=== PATIENT | male | born 1970 | race Caucasian/White ===

== ENCOUNTER 2018-12-06 18:43 | Emergency (ER) | payer MEDICAID ==
[~2018-12-06] VITALS: Ht 187.9 cm; Wt 100.0 kg
[~2018-12-06 18:43] MED LIST: ALBU5SOL10 IH; ASP81TEC PO; CLOP75TA PO; HYDR1TAB66 PO; LISI20TA PO; LSNP10T PO; METO25TA2 PO; NITR0.4T12 SL; PANT40SU PO; SIMV20TA3 PO; TRZ50T PO; aspirin; trazadone; trazadone PO
--- NOTE | 2018-12-06 19:12 | ED GI ---
General Chief Complaint: Abdominal/GI Problems Stated Complaint: CONSTIPATION Nursing Triage Note: pt. c/o constipation. last bowel movement was 3 days ago. pt. reported a hard stool. Sepsis Screen: No Definite Risk Source of Information: Patient Exam Limitations: No Limitations History of Present Illness Date Seen by Provider: Dec 06, 2018 Time Seen by Provider: 18:50 Initial Comments Patient presents ER by EMS from [employer], [place] with chief complaint of constipation 3 days. You hard large stool ball at that time. He took one dose of MiraLAX today and was not able to pass stool so he called the family wants. He has a history of chronic opioid-induced constipation. He does not use methyl naltrexone. 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 He does not have a history of cancer presently. He does not take anything routinely for constipation. He follows with [facility] [employer]. He saw her yesterday and had labs and everything was okay then. He did not bring up his constipation at that time. Allergies and Home Medications Allergies Coded Allergies: Metoclopramide (Verified Allergy, Unknown, 12/14/06) Prochlorperazine (Verified Allergy, Unknown, 12/14/06) Home Medications Aspirin 81 Mg Tabec, 81 MG PO DAILY, (Reported) Clopidogrel Bisulfate 75 Mg Tablet, 75 MG PO DAILY, (Reported) Hydrocodone Bit/Acetaminophen 1 Each Tablet, 1 TAB PO Q6H PRN, (Reported) Lisinopril 20 Mg Tablet, 20 MG PO DAILY, (Reported) Metoprolol Tartrate 25 Mg Tablet, 25 MG PO DAILY, (Reported) Nitroglycerin 0.4 Mg Tab.subl, 0.4 MG SL PRN, (Reported) Simvastatin 20 Mg Tablet, 20 MG PO DAILY, (Reported) Trazodone Hcl 50 Mg Tab, 50 MG PO DAILY, (Reported) Patient Home Medication List Home Medication List Reviewed: Yes Review of Systems Review of Systems Constitutional: No chills, No diaphoresis EENTM: No Blurred Vision, No Double Vision Respiratory: Denies Cough, Denies Shortness of Air Cardiovascular: Denies Chest Pain, Denies Edema Gastrointestinal: See HPI; Denies Abdominal Pain; Constipated; Denies Diarrhea, Denies Nausea Genitourinary: Denies Burning, Denies Discharge Musculoskeletal: No back pain, No joint pain Past Whzgxdt-Cnpsvi-Cunjrs Hx Patient Social History Alcohol Use: Denies Use Recreational Drug Use: No Recent Foreign Travel: No Contact w/Someone Who Travel: No Recent Infectious Disease Expo: No Recent Hopitalizations: No Physical Abuse: No Sexual Abuse: No Mistreated: No Fear: No Seasonal Allergies Seasonal Allergies: No Past Medical History Respiratory: Yes (copd) Cardiac: Yes Heart Attack Neurological: Yes Stroke Reproductive Disorders: No Sexually Transmitted Disease: No Gastrointestinal: No Musculoskeletal: Yes Endocrine: No Cancer: Yes (nasopharyngeal at age 18) Psychosocial: Yes Blood Disorders: No Physical Exam Vital Signs Vital Signs - First Documented 12/06/18 18:45 Temp 36.9 Pulse 76 Resp 18 B/P (MAP) 141/99 (113) Pulse Ox 98 O2 Delivery Room Air Capillary Refill : Less Than 3 Seconds Height/Weight/BMI Height: '" Weight: lbs. oz. kg; 28.00 BMI Method: General Appearance: WD/WN, no apparent distress HEENT: PERRL/EOMI, pharynx normal Respiratory: no respiratory distress, no accessory muscle use Cardiovascular: normal peripheral pulses, regular rate, rhythm Gastrointestinal: normal bowel sounds, non tender, soft Skin: normal color, warm/dry Progress/Results/Core Measures Results/Orders Vital Signs/I&O 12/06/18 18:45 Temp 36.9 Pulse 76 Resp 18 B/P (MAP) 141/99 (113) Pulse Ox 98 O2 Delivery Room Air Blood Pressure Mean: 113 POS Progress Progress Note : Time: 19:08 Progress Note Plan to put him out on MiraLAX 3 times daily and enemas twice daily. We have recommended methyl naltrexone and he can discuss this with his primary care provider. Departure Impression Primary Impression: Constipation Qualified Codes: K59.03 - Drug induced constipation Disposition: 01 HOME, SELF-CARE Condition: Stable Departure-Patient Inst. Decision time for Depature: 19:09 Referrals: BREANNE SANABRIA MD (PCP/Family) Primary Care Physician Patient Instructions: Constipation, Adult (DC) Add. Discharge Instructions: Drink plenty of fluids. 1 capful of MiraLAX in 6-8 ounces of fluids taken 3-4 times daily on a schedule until you have good results. Place one Phosphosoda enema per rectum once or twice daily for the next 3 days until you produce good bowel movements. If after 3 days or unable to produce a stool despite using laxatives and enemas then you can pickle pumper the Methylnaltrexone and inject subcutaneously 12 mg once. If you don't see improvement in one day then you can follow-up with the primary care doctor. Follow-up next week with your primary care provider. If you have nausea take one tablet of Zofran every 6 hours under the tongue as needed. All discharge instructions reviewed with patient and/or family. Voiced understanding. Scripts Methylnaltrexone (Relistor) 12 Mg/0.6 Ml Vial 12 MG SQ ONCE PRN for CONSTIPATION-3RD LINE, #1 VIAL 0 Refills If 3 days MiraLAX/enemas fail then stop laxatives Give Relistor. See PCP if no results in 24h Prov: RACHEL STOVER 12/06/18 Na Phos,M-B/Na Phos,Di-Ba (Fleet Enema) 133 Ml Enema 133 ML RC BID PRN for CONSTIPATION-1ST LINE for 3 Days, #5 EA 0 Refills Prov: RACHEL STOVER 12/06/18 Polyethylene Glycol 3350 (Miralax) 17 Gm Powd.pack 17 GM PO TID for 3 Days, #1 EACH 0 Refills Prov: RACHEL STOVER 12/06/18 Ondansetron (Ondansetron Odt) 4 Mg Tab.rapdis 4 MG PO Q6H PRN for NAUSEA/VOMITING, #8 TAB 0 Refills Prov: RACHEL STOVER 12/06/18 RACHEL STOVER Dec 06, 2018 19:12 POS
[2018-12-06] MEDS ORDERED: POLY17PO6 PO (19:17)
[2018-12-06] MEDS ORDERED: NA P133E22 RC (19:17)
[2018-12-06] MEDS ORDERED: ONDA4TAB11 PO (19:17)
[2018-12-06] MEDS ORDERED: RELISTOR12 SQ (19:17)
[2018-12-06 19:20] VITALS: BP 141/99
--- OUTSIDE RECORDS SUMMARY | 2018-12-30 18:26 | XMS REPORT | Encounter Summary ---
Author Author [facility] POS Organization [facility] SP Address Unknown SP Phone Unavailable SP Care Team Providers Care L Tacker Name Role Phone POS PCP Unavailable SP Encounter Details Care Team Description POS Date Type Department [place] [address] [place] [address] SP 05/06/2004 [facility] [place] [address] [place] [address] SP [phone] SP Social History Date POS Tobacco Use Types Packs/Day Years Used SP SP Never Assessed SP Sex Assigned at Date Recorded SP Not on file SP Industry POS Job Start Date Occupation SP Not on file SP Not on file Not on file SP Travel End POS Travel History Travel Start SP No recent travel history available. SP documented as of this encounter Plan of Treatment Not on filedocumented as of this encounter Procedures Comments POS Procedure Name Priority Date/Time Associated Diag nosis SP SP DIFFERENTIAL Routine 05/06/2004 SP 10:55 PM MAIN LINE STATION ENGINEER SP SP APTT Routine 05/06/2004 SP 10:55 PM MAIN LINE STATION ENGINEER SP SP TROPONIN Routine 05/06/2004 SP 10:55 PM MAIN LINE STATION ENGINEER SP SP PROTHROMBIN TIME/INR Routine 05/06/2004 SP 10:55 PM MAIN LINE STATION ENGINEER SP SP CREATINE KINASE Routine 05/06/2004 SP 10:55 PM MAIN LINE STATION ENGINEER SP SP CBC AND DIFF (MANUAL DIFF Routine 05/06/2004 SP IF NECESSARY) 10:55 PM MAIN LINE STATION ENGINEER SP SP CK-MB Routine 05/06/2004 SP 10:55 PM MAIN LINE STATION ENGINEER SP SP BASIC METABOLIC PANEL Routine 05/06/2004 SP 10:55 PM MAIN LINE STATION ENGINEER SP SP ALCOHOL SERUM Routine 05/06/2004 SP 10:55 PM MAIN LINE STATION ENGINEER SP SP XR CHEST SINGLE VIEW Routine 05/06/2004 SP FRONTAL 10:16 PM MAIN LINE STATION ENGINEER SP documented in this encounter Results * DIFFERENTIAL (05/06/2004 10:55 PM MAIN LINE STATION ENGINEER) Pathologist POS Signature SP % Neutrophils 64 45 - 78 % [facility] SP %Lymphocytes 23 15 - 47 % [facility] SP %Monocytes 12 0 - 12 % [facility] SP %Eosinophils 1 0 - 7 % [facility] SP %Basophils 0 0 - 2 % [facility] SP # Granulocytes 6.5 1.7 - 6.8 TH/UL [facility] SP # Lymphocytes 2.3 1.0 - 3.3 TH/UL [facility] SP # Monocytes 1.2 (H) 0.2 - 0.9 TH/UL [facility] SP # Eosinophils 0.1 0.0 - 0.4 TH/UL [facility] SP # Basophils 0.0 0.0 - 0.2 TH/UL [facility] SP Specimen SP Blood SP Performing Organization Address [facility] Ph one Number SP [address] [place], [place] [address] SP SUNQUEST SP * CBC and Diff (manual diff if necessary) (05/06/2004 10:55 PM MAIN LINE STATION ENGINEER) Pathologist SP Signature SP WBC 10.1 4.0 - 11.0 TH/UL [facility] SP RBC 5.13 4.31 - 5.84 MIL/UL [facility] SP Hemoglobin 15.4 13.0 - 17.0 G/DL [facility] SP Hematocrit 43 40 - 50 % [facility] SP MCV 84 80 - 99 FL [facility]QUEST SP MCH 30 27 - 34 PG [facility]QUEST SP MCHC 36 32 - 36 % [facility] SP RDW 15.5 (H) <14.5 % [facility] SP Platelet Count 338 140 - 400 TH/UL [facility] SP Specimen SP Blood SP Performing Organization Address [facility] Ph one Number SP [address] [place], [place] [address] SP [facility]QUEST SP * Troponin (05/06/2004 10:55 PM MAIN LINE STATION ENGINEER) Pathologist SP Signature SP Troponin <0.10 f 0.00 - 0.15 NG/ML [facility] SP Specimen SP Blood SP Narrative Performed At SP Report [facility] SP Comments and Normal Ranges for Com ponent TROPONIN(NG/ML) SP TROPONIN VALUE INTERPRETATION SP 0.00 - 0.15 Negative SP 0.16 - 1.50 Increased car diac risk SP >1.50 Myocardial in farction SP Troponin may not become elevated until 6 to 8 hours after onset of SP symptoms. SP Performing Organization Address [facility] one Number SP [address] [place] [address] SP SUNQUEST SP * Creatine Kinase (05/06/2004 10:55 PM MAIN LINE STATION ENGINEER) Pathologist SP Signature SP Creatine Kinase 209 30 - 225 IU/L [facility]QUEST SP Specimen SP Blood SP Performing Organization Address [facility] Ph one Number SP [address] [place] [address] SP SUNQUEST SP * Prothrombin Time/INR (05/06/2004 10:55 PM MAIN LINE STATION ENGINEER) Pathologist SP Signature SP Protime 13.3 11.4 - 14.2 SEC [facility]QUEST SP INR 1.1 [facility] SP Specimen SP Blood SP Performing Organization Address [facility] Ph one Number SP [address] [place] [address] SP SUNQUEST SP * Basic Metabolic Panel (05/06/2004 10:55 PM MAIN LINE STATION ENGINEER) Pathologist SP Signature SP Sodium 143 134 - 144 MEQ/L [facility]QUEST SP Potassium 3.7 3.6 - 5.0 MEQ/L [facility]QUEST SP Chloride 109 (H) 98 - 107 MEQ/L [facility]QUEST SP Carbon Dioxide 24 23 - 32 MEQ/L SUNQUEST SP Anion Gap 10 3 - 15 [facility]QUEST SP Creatinine 1.5 0.5 - 1.5 MG/DL [facility]QUEST SP Blood Urea 11 5 - 20 MG/DL [facility]QUEST SP Nitrogen SP Glucose 119 (H) 65 - 100 MG/DL SUNQUEST SP Calcium 9.7 8.8 - 10.5 MG/DL [facility]QUEST SP Specimen SP Blood SP Performing Organization Address [facility] Ph one Number SP [address] [place] [address] SP SUNQUEST SP * CK-MB (05/06/2004 10:55 PM MAIN LINE STATION ENGINEER) Pathologist SP Signature SP CK MB 1.4 0.0 - 5.0 NG/ML [facility]QUEST SP Specimen SP Blood SP Performing Organization Address [facility] one Number SP [address] [place] [address] SP SUNQUEST SP * Alcohol Serum (05/06/2004 10:55 PM MAIN LINE STATION ENGINEER) Pathologist SP Signature SP Alcohol Serum <10 f 0 - 9 MG/DL [facility]QUEST SP Specimen SP Blood SP Narrative Performed At SP Report SUNQUEST SP Comments and Normal Ranges for Com ponent ALC(MG/DL) SP No ethanol detected. SP Performing Organization Address [facility] Ph one Number SP [address] [place] [address] SP SUNQUEST SP * APTT (05/06/2004 10:55 PM MAIN LINE STATION ENGINEER) Pathologist SP Signature SP APTT 25 22 - 32 SEC [facility]QUEST SP Specimen SP Blood SP Performing Organization Address [facility] one Number SP [address] [place] [address] SP SUNQUEST SP * XR Chest single view frontal (05/06/2004 10:16 PM MAIN LINE STATION ENGINEER) Specimen SP Narrative Performed At SP Report LOLIS SP Name: BANDAR PECK Date of : 0 1970 Age: 33Y SP Room-Bed/Loc/Type : -// Check-in #: [id number] SP Attending Physician: LUISITO COX MD Admitting Diagnosis: SP Procedure: DX CHEST SINGLE VIEW; 1010 5 SP Reason for Exam: PAIN SP Requested by: LUISITO COX Exam Ordered: 05/06/2004 SP Fletcher # / Jacket #: [id number] SP Exam: CHEST. SP Date/Time of Exam: 05/06/2004 22:18 SP Reason for Exam: Pain. SP Single AP upright view is obtained. T he heart and mediastinum are SP unremarkable. Diaphragms are smooth. Lungs are clear. SP IMPRESSION: Negative chest. SP Electronically Authenticated By: JOSH Bowman M.D. 05/07/2004 14:46:4 1 SP JOSH Bowman M.D. SP SP cc: SP 1 SP Procedure Note POS SP Interface, Rad Conversion - 04/07/2013 11:46 PM MAIN LINE STATION ENGINEER Report Name: BANDAR PECK Date of : 1970 Age: 33Y Room-Bed/Loc/Type: -//EJ Check-in #: [id number] Attending Physician: LUISITO COX MD Admitting Diagnosis: Procedure: DX CHEST SINGLE VIEW; 68085 Reason for Exam: PAIN Requested by: LUISITO COX Exam Ordered: 05/06/2004 Fletcher # / Jacket #: [id number] Exam: CHEST. Date/Time of Exam: 05/06/2004 22:18 Reason for Exam: Pain. Single AP upright view is obtained. The heart and mediastinum are unremarkable. Diaphragms are smooth. Lungs are clear. IMPRESSION: Negative chest. Electronically Authenticated By: Luisito Bowman M.D. 05/07/2004 14:46:41 Luisito Bowman M.D. cc: 1 SP Performing Organization Address City/State/Zipcode Ph one Number JOSH MORENO documented in this encounter Visit Diagnoses Not on filedocumented in this encounter
--- OUTSIDE RECORDS SUMMARY | 2018-12-30 18:26 | XMS REPORT | Clinical Summary ---
Author Author [facility] POS Organization [facility] SP Address Unknown SP Phone Unavailable SP Care Team Providers Care Motor And Generator Assembler Name Role Phone POS William Tee MD Unavailable SP Melvin Moran MD Unavailable SP Cristobal Gonzales MD Unavailable SP Irene Huang MD PCP SP Ramiro Lovell DO Unavailable SP Source Comments Some departments are not documenting in the electronic medical record. If you d o not see the information that you expected, contact Release of Information in [facility] Information Management department at [phone] for further assistan ce in locating additional records.[facility] Allergies Comments POS Active Allergy Reactions Severity Noted Date SP SP Prochlorperazine UNKNOWN 05/11/2007 SP SP Metoclopramide 05/12/2007 SP Medications End Date Status POS Medication Sig Dispensed Refills Start SP Date SP Active SP atorvastatin (LIPITOR) 40 Take 2 Tabs 30 3 SP mg tablet by mouth 8 SP Daily. SP Active SP dipyridamole/aspirin Take 1 Cap by 60 0 SP (AGGRENOX) 200/25 mg mouth Twice 8 SP capsule Daily. SP Active SP citalopram (CELEXA) 20 mg Take 1 Tab by 60 Tab 1 SP tablet mouth at 2 SP bedtime SP daily. SP Active SP traZODone (DESYREL) 100 Take 100 mg 0 SP mg tablet by mouth at SP bedtime as SP needed. SP Active SP HYDROcodone-acetaminophen Take 1 Tab by 0 SP (+) (VICODIN) 10-325 mg mouth every 6 SP tablet hours as SP needed. SP Active SP meclizine (ANTIVERT) 25 Take 25 mg by 0 SP mg tablet mouth three SP times daily SP as needed. SP Active SP aspirin 325 mg tablet Take 325 mg 0 SP by mouth SP daily. SP Active SP aspirin EC 81 mg Take 1 Tab by 30 Tab 6 01 SP tabletIndications: Late mouth daily. 5 SP effect of stroke SP Active SP dipyridamole/aspirin Take 1 Cap by 60 Cap 6 SP (AGGRENOX) 200/25 mg mouth twice 5 SP capsuleIndications: Late daily. 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 SP STEMI (ST elevation myocardial infarction) 8 SP Hyperlipidemia 05/14/2007 SP CVA (cerebral infarction) 05/14/2007 SP Immunizations Name Administration Dates Next Due POS Pneumococcal Vaccine 06/27/2011 SP (23-[place]ina Adult) SP Family History Medical History Relation Name Comments POS Heart Attack Father SP Heart Attack Mother SP Relation Name Status Comments SP Father SP Mother SP Social History Date POS Tobacco Use Types Packs/Day Years Used SP Quit: 12/04/2014 SP Former Smoker Cigarettes 1 18 SP Smokeless Tobacco: Never SP Used SP Drinks/Week oz/Week Comments POS Alcohol Use SP SP 0 Standard drinks or equivalent 0.0 occasional vodka use SP Yes SP Sex Assigned at Date Recorded SP Not on file SP Industry POS Job Start Date Occupation SP Not on file SP Not on file Not on file SP Travel End POS Travel History Travel Start SP No recent travel history available. SP Last Filed Vital Signs Reading Time Taken Comments POS Vital Sign SP 112/81 02/25/2015 2:21 PM LUBRICATING SPECIALIST SP Blood Pressure SP 53 02/25/2015 2:21 PM LUBRICATING SPECIALIST SP Pulse SP 36.3 C (97.4 F) 02/25/2015 2:21 PM LUBRICATING SPECIALIST SP Temperature SP 16 02/25/2015 2:21 PM LUBRICATING SPECIALIST SP Respiratory Rate SP 99% 02/25/2015 2:21 PM LUBRICATING SPECIALIST SP Oxygen Saturation SP - - SP Inhaled Oxygen SP Concentration SP 81.6 kg (180 lb) 04/13/2015 3:47 PM LUBRICATING SPECIALIST SP Weight SP 188 cm (6' 2.02") 04/13/2015 3:47 PM LUBRICATING SPECIALIST SP Height SP 23.1 04/13/2015 3:47 PM LUBRICATING SPECIALIST SP Body Mass Index SP Plan of Treatment Health Maintenance Due Date Last Done Comments POS HIV SCREENING 08/28/1986 SP DTAP/TDAP VACCINES (1 - 08/28/1989 SP Tdap) SP PHYSICAL (COMPREHENSIVE) 08/28/1989 SP EXAM SP INFLUENZA VACCINE 09/05/2018 SP Results Not on filefrom Last 3 Months Insurance Type POS Payer Benefit Subscriber ID Effective Phone Address SP Plan / Dates SP Group SP Medicaid SP [facility] MEDICAID [facility] xxxxxxxxxxx 2012-P SP COMMUNITY resent SP PLAN [place] SP [phone] SP 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 needed SP
--- OUTSIDE RECORDS SUMMARY | 2018-12-30 18:26 | XMS REPORT | Continuity of Care Document ---
Author Author [facility] POS Organization [facility] SP Address Unknown SP Phone Unavailable SP Care Team Providers Care Strategic Planner Name Role Phone POS [facility] Unavailable Unavailable SP Problems Problem Status Onset Date POS Classification Date Reported POS Comments Source POS SHORTNESS OF BREATH Active SP SP ePARwnee Stoddard SP LOSS OF WEIGHT Active SP SP [employer] SP Medications No Data Provided for This Section POS Allergies, Adverse Reactions, Alerts No Known Medication Allergies POS Immunizations No Data Provided for This Section POS Results No Data Provided for This Section POS Pathology Reports No Data Provided for This Section POS Diagnostic Reports No Data Provided for This Section POS Consultation Notes No Data Provided for This Section POS Discharge Summaries No Data Provided for This Section POS History and Physicals No Data Provided for This Section POS Vital Signs No Data Provided for This Section POS Encounters No Data Provided for This Section POS Procedures No Data Provided for This Section POS Plan of Care No Data Provided for This Section POS Social History No Data Provided for This Section POS Assessment and Plan No Data Provided for This Section POS Family History No Data Provided for This Section POS Advance Directives No Data Provided for This Section POS Functional Status No Data Provided for This Section POS
--- OUTSIDE RECORDS SUMMARY | 2018-12-30 18:26 | XMS REPORT | Encounter Summary ---
Author Author [facility] POS Organization [facility] SP Address Unknown SP Phone Unavailable SP Care Team Providers Care Infrastructure Design Engineer Name Role Phone POS PCP Unavailable SP Encounter Details Care Team Description POS Date Type [place] [address] [place] [address] [phone] SP 05/13/2007 [facility] al SP Encounter [address] [place] [address] SP [phone] SP Social History Date POS Tobacco Use [...] Priority Date/Time Associated Diag nosis SP SP PROTEIN S ACTIVITY Routine 05/12/2007 SP 3:45 AM CDT SP documented in this encounter Results * Protein S Activity (05/12/2007 3:45 AM CDT) Pathologist POS Signature SP Protein S > 140 57 - 140 % [facility] SP Activity SP Specimen SP Performing Organization Address City/State/Zipcode Ph one Number SP [address] [place], [place] [address] SP SUNQUEST SP documented in this encounter Visit Diagnoses Not on filedocumented in this encounter
--- OUTSIDE RECORDS SUMMARY | 2018-12-30 18:26 | XMS REPORT | Encounter Summary ---
Author Author [facility] POS Organization [facility] SP Address Unknown SP Phone Unavailable SP Care Team Providers Care System Manager Name Role Phone POS PCP Unavailable SP Encounter Details Care Team Description POS Date Type Department SP SP Curry Jones MD SP 12/30/2008 [facility] al SP Encounter [address] [facility] [place] [address] SP [phone] SP Social History Date POS Tobacco Use [...] Priority Date/Time Associated Diag nosis SP SP B12/FOLATE Routine 12/29/2008 SP 8:14 PM ANGIOGRAPHY NURSE SP documented in this encounter Results * B12/Folate (12/29/2008 8:14 PM ANGIOGRAPHY NURSE) Pathologist POS Signature SP VITAMIN B12 431 180 - 914 PG/ML SUNQUEST SP Folate 5.0 >3.4 NG/ML [facility]QUEST SP Specimen SP Performing Organization Address City/State/Zipcode Ph one Number SP [address] [place], [place] [address] SP SUNQUEST SP documented in this encounter Visit Diagnoses Not on filedocumented in this encounter
--- OUTSIDE RECORDS SUMMARY | 2018-12-30 18:26 | XMS REPORT | Clinical Summary ---
Author Author [facility] POS Organization [facility] SP Address Unknown SP Phone Unavailable SP Care Team Providers Care Record Center Specialist Name Role Phone POS PCP Unavailable SP Allergies Not on File Medications Not on file Active Problems Not on file Social History Date POS Tobacco Use Types Packs/Day Years Used SP SP Never Assessed SP Sex Assigned at Date Recorded SP Not on file SP Industry POS Job Start Date Occupation SP Not on file SP Not on file Not on file SP Travel End POS Travel History Travel Start SP No recent travel history available. SP Last Filed Vital Signs Not on file Plan of Treatment Not on file Results Not on filefrom Last 3 Months
--- OUTSIDE RECORDS SUMMARY | 2018-12-30 18:26 | XMS REPORT | Encounter Summary ---
Author Author [facility] POS Organization [facility] SP Address Unknown SP Phone Unavailable SP Care Team Providers Care Track Grinder Name Role Phone POS PCP Unavailable SP Encounter Details Care Team Description POS Date Type Department SP SP Curry Jones MD SP 01/04/2009 [facility] al SP Encounter [address] [place] [address] SP [phone] SP Social History Date POS Tobacco Use [...] Priority Date/Time Associated Diag nosis SP SP ANTICARDIOLIPIN Routine 01/04/2009 SP ANTIBODIES 1:22 PM SENIOR DRAFTER SP documented in this encounter Results * Anticardiolipin Antibodies (01/04/2009 1:22 PM SENIOR DRAFTER) Pathologist POS Signature SP Anticardiolipin 6 0 - 15 GPL SUNQUEST SP IgG SP Anticardiolipin 10 0 - 15 MPL SUNQUEST SP IgM Comment: SP In the presence of appropriate SP clinical criteria (vascular SP thrombosis or SP complications of ), SP diagnosis of the SP antiphospholipid antibody SP syndrome requires a positive SP test for lupus 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 SP on two or more SP occasions at least twelve SP weeks apart, or moderate to SP high titer SP anticardiolipin antibodies SP (IgG >30 GPL units or IgM > 30 SP units) on two or SP more occasions at least twelve SP weeks apart, or anti-B2GP1 SP (IgG > 20 SGU SP units or IGM > 20 SGU units) SP on two or more occasions at SP least twelve SP weeks apart. SP Specimen SP Performing Organization Address City/State/Zipcode Ph one Number SP [facility] [address] [place], [place] [address] SP [place] SP documented in this encounter Visit Diagnoses Not on filedocumented in this encounter
--- OUTSIDE RECORDS SUMMARY | 2018-12-30 18:27 | XMS REPORT | Continuity of Care Document ---
Author Organization Unknown POS Address Unknown SP Phone Unavailable SP Allergies Active Description Code Type Severity POS Reaction Onset Reported/Identified POS to Patient Clinical Status POS Yes metoclopramide [id number] Dr ug Allergy SP Unknown N/A 12/14/2006 SP SP Yes prochlorperazine [id number] Drug Allergy SP Unknown N/A 12/14/2006 SP SP Medications There is no data. 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 SP UNSPECIFIED SP 04/17/2012 Ot 786.09 RES PIRATORY SP NEC SP 04/17/2012 Ot V12.54 PER ИРИНА HX OF SP CEREBRAL INFARCTION SP 04/17/2012 Ot V15.81 HX OF PAST SP SP 04/17/2012 Ot V45.82 PER CUTANEOUS SP CORON ANGIOPLASTY SP 04/17/2012 Ot V58.63 LAUREL G- SP OF ANTIPLATELET/AN SP 04/17/2012 Ot V58.66 LAUREL G-TERM SP USE OF ASPIRIN SP 04/17/2012 Ot V58.69 OTH SP USE SP 06/10/2014 Ot 412 SP 06/10/2014 Ot 414.00 SP 06/10/2014 Ot V72.81 SP 06/10/2014 Ot 412 SP 06/10/2014 Ot 414.01 SP 06/10/2014 Ot V72.81 SP 07/20/2014 GREENMITUL LANDA Ot 401.9 SP SP 07/20/2014 MITUL SINCLAIR Ot SP SP 07/20/2014 MITUL SINCLAIR Ot SP SP 07/20/2014 MITUL SINCLAIR Ot SP SP 11/18/2015 MONICO UGALDE MD Ot E78. 5 SP UNSPECIFIED SP 11/18/2015 MONICO UGALDE MD Ot I10 SP (PRIMARY) HYPERTENSION SP 11/18/2015 MONICO UGALDE MD Ot I25. 10 SP HEART DISEASE OF [place] CORONARY SP 11/18/2015 MONICO UGALDE MD Ot I63. 9 SP INFARCTION, UNSPECIFIED SP 11/19/2015 Ot 412 OLD MY OCARDIAL SP SP 11/19/2015 Ot 414.00 COR ON ATHEROSCLER SPNOS TYPE VESSEL, NATIV SP 11/19/2015 Ot V72.81 SP CARDIOVASCULAR SP 11/19/2015 Ot 412 OLD MY OCARDIAL SP SP 11/19/2015 Ot 414.01 COR ONARY SP OF [place] CORON SP 11/19/2015 Ot V72.81 SP CARDIOVASCULAR SP 11/19/2015 MITUL SINCLAIR Ot 401.9 SP HYPERTENSION NOS SP 11/19/2015 MITUL SINCLAIR Ot SP CORON ATHEROSCLER NOS TYPE VESSEL, NATIV SP 11/19/2015 MITUL SINCLAIR Ot SP CAROTID ARTERY OCCLUSION W O CEREBRAL IN SP 11/19/2015 MITUL SINCLAIR Ot SP CEREBRAL ART OCCLUSION NOS W CEREBRAL IN SP 11/19/2015 MONICO UGALDE MD Ot E78. 5 SP UNSPECIFIED SP 11/19/2015 MONICO UGALDE MD Ot I10 SP (PRIMARY) HYPERTENSION SP 11/19/2015 MONICO UGALDE MD Ot I25. 10 SP HEART DISEASE OF [place] CORONARY SP 11/19/2015 MONICO UGALDE MD Ot I63. 9 SP INFARCTION, UNSPECIFIED SP 12/01/2015 MONICO UGALDE MD Ot E78. 5 SP UNSPECIFIED SP 12/01/2015 MONICO UGALDE MD Ot I10 SP (PRIMARY) HYPERTENSION SP 12/01/2015 MONICO UGALDE MD Ot I25. 10 SP HEART DISEASE OF [place] CORONARY SP 12/01/2015 MONICO UGALDE MD Ot I63. 9 SP INFARCTION, UNSPECIFIED SP 12/09/2015 Ot 412 OLD MY OCARDIAL SP SP 12/09/2015 Ot 414.00 COR ON ATHEROSCLER SPNOS TYPE VESSEL, NATIV SP 12/09/2015 Ot V72.81 SP CARDIOVASCULAR SP 12/09/2015 Ot 412 OLD MY OCARDIAL SP SP 12/09/2015 Ot 414.01 COR ONARY SP OF [place] CORON SP 12/09/2015 Ot V72.81 SP CARDIOVASCULAR SP 12/09/2015 MITUL SINCLAIR Ot 401.9 SP HYPERTENSION NOS SP 12/09/2015 MITUL SINCLAIR Ot SP CORON ATHEROSCLER NOS TYPE VESSEL, NATIV SP 12/09/2015 MITUL SINCLAIR Ot CAROTID ARTERY OCCLUSION W O CEREBRAL IN SP 12/09/2015 MITUL SINCLAIR Ot CEREBRAL ART OCCLUSION NOS W CEREBRAL IN SP 12/09/2015 MONICO UGALDE MD Ot E78. 5 SP UNSPECIFIED SP 12/09/2015 MONICO UGALDE MD Ot I10 SP (PRIMARY) HYPERTENSION SP 12/09/2015 MONICO UGALDE MD Ot I25. 10 SP HEART DISEASE OF [place] CORONARY SP 12/09/2015 MONICO UGALDE MD Ot I63. 9 SP INFARCTION, UNSPECIFIED SP 12/10/2015 MITUL SINCLAIR Ot E07.9 SP DISORDER OF THYROID, UNSPECIFIED SP 12/10/2015 MITUL SINCLAIR Ot E78.2 SP MIXED HYPERLIPIDEMIA SP 12/10/2015 MITUL SINCLAIR Ot I10 SP ESSENTIAL (PRIMARY) HYPERTENSION SP 12/10/2015 MITUL SINCLAIR Ot SP ATHSCL HEART DISEASE OF [place] CORONARY SP 12/10/2015 MITUL SINCLAIR Ot SP OCCLUSION AND STENOSIS OF BILATERAL [place] SP 12/22/2015 MITUL SINCLAIR Ot E07.9 SP DISORDER OF THYROID, UNSPECIFIED SP 12/22/2015 MITUL SINCLAIR Ot E78.2 SP MIXED HYPERLIPIDEMIA SP 12/22/2015 MITUL SINCLAIR Ot I10 SP ESSENTIAL (PRIMARY) HYPERTENSION SP 12/22/2015 MITUL SINCLAIR Ot SP ATHSCL HEART DISEASE OF [place] CORONARY SP 12/22/2015 MITUL SINCLAIR Ot SP OCCLUSION AND STENOSIS OF BILATERAL SAM[place] SP 12/10/2018 RACHEL STOVER MD Ot I25. 2 SP MYOCARDIAL INFARCTION SP 12/10/2018 RACHEL STOVER MD Ot J44. 9 SP OBSTRUCTIVE PULMONARY DISEASE, U SP 12/10/2018 RACHEL STOVER MD Ot K59. 00 SP UNSPECIFIED SP 12/10/2018 RACHEL STOVER MD Ot Z79. 02 SP TERM (CURRENT) USE OF ANTITHROMBOTI SP 12/10/2018 RACHEL STOVER MD Ot Z79. 82 SP TERM (CURRENT) USE OF ASPIRIN SP 12/10/2018 RACHEL STOVER MD Ot Z86. 73 SP HX OF TIA (TIA), AND CEREB INFRC W SP 12/10/2018 RACHEL STOVER MD Ot Z88. 8 SP STATUS TO OTH DRUG/MEDS/BIOL SUB SP Procedures There is no data. Results Test Result Range POS PDM - 09 PANEL (PROFILE 1) - 10/30/18 13 :30 POS Prescribed Drug 1 Hydrocodone NRG SP Creatinine 225.7 mg/dL > or=20.0 SP pH 7.8 4.5-9.0 SP Oxidant NEGATIVE mcg/mL <200 SP Amphetamines NEGATIVE ng/mL <500 SP medMATCH Amphetamines CONSISTENT NRG SP Benzodiazepines NEGATIVE ng/mL <100 SP medMATCH Benzodiazepines CONSISTENT NRG SP Marijuana Metabolite NEGATIVE ng/mL <20 SP medMATCH Marijuana Metab CONSISTENT NRG SP Cocaine Metabolite NEGATIVE ng/mL <150 SP medMATCH Cocaine Metab CONSISTENT NRG SP Opiates POSITIVE ng/mL <100 SP Oxycodone NEGATIVE ng/mL <100 SP medMATCH Oxycodone CONSISTENT NRG SP COMMENT NRG SP Codeine NEGATIVE ng/mL <50 SP medMATCH Codeine CONSISTENT NRG SP Hydrocodone 4125 ng/mL <50 SP medMATCH Hydrocodone CONSISTENT NRG SP Hydromorphone 1076 ng/mL <50 SP medMATCH Hydromorphone CONSISTENT NRG SP Morphine NEGATIVE ng/mL <50 SP medMATCH Morphine CONSISTENT NRG SP Norhydrocodone 4921 ng/mL <50 SP medMATCH Norhydrocodone CONSISTENT NRG SP Barbiturates NEGATIVE ng/mL <300 SP medMATCH Barbiturates CONSISTENT NRG SP Methadone Metabolite NEGATIVE ng/mL <100 SP medMATCH Methadone Metab CONSISTENT NRG SP Phencyclidine NEGATIVE ng/mL <25 SP medMATCH Phencyclidine CONSISTENT NRG SP TSH w/ FREE T4 - 12/19/18 14:30 POS TSH 5.23 mIU/L 0.40-4.50 SP T4, FREE 1.2 ng/dL 0.8-1.8 SP LIPID PANEL - 12/19/18 14:30 POS CHOLESTEROL, TOTAL 247 mg/dL <200 SP HDL CHOLESTEROL 39 mg/dL >40 SP TRIGLYCERIDES 162 mg/dL <150 SP LDL-CHOLESTEROL 177 mg/dL (calc) NRG SP CHOL/HDLC RATIO 6.3 (calc) <5.0 SP NON HDL CHOLESTEROL 208 mg/dL (calc) <13 0 SP CMP - 12/19/18 14:30 POS GLUCOSE 91 mg/dL 65-99 SP UREA NITROGEN (BUN) 17 mg/dL 7-25 SP CREATININE 1.66 mg/dL 0.60-1.35 SP eGFR NON-AFR. GAMBIAN 48 mL/min/1.73m2 > OR=60 SP eGFR 56 mL/min/1.73m2 > OR=60 SP BUN/CREATININE RATIO 10 (calc) 6-22 SP SODIUM 142 mmol/L 135-146 SP POTASSIUM 4.2 mmol/L 3.5-5.3 SP CHLORIDE 107 mmol/L 98-110 SP CARBON DIOXIDE 22 mmol/L 20-32 SP CALCIUM 9.3 mg/dL 8.6-10.3 SP PROTEIN, TOTAL 7.1 g/dL 6.1-8.1 SP ALBUMIN 4.4 g/dL 3.6-5.1 SP GLOBULIN 2.7 g/dL (calc) 1.9-3.7 SP ALBUMIN/GLOBULIN RATIO 1.6 (calc) 1.0-2. 5 SP BILIRUBIN, TOTAL 0.6 mg/dL 0.2-1.2 SP ALKALINE PHOSPHATASE 48 U/L 40-115 SP AST 15 U/L 10-40 SP ALT 15 U/L 9-46 SP CBC - 12/19/18 14:30 POS WHITE BLOOD CELL COUNT 8.7 Thousand/uL 3 .8-10.8 SP RED BLOOD CELL COUNT 5.46 Million/uL 4.2 0-5.80 SP HEMOGLOBIN 15.2 g/dL 13.2-17.1 SP HEMATOCRIT 45.0 % 38.5-50.0 SP MCV 82.4 fL 80.0-100.0 SP MCH 27.8 pg 27.0-33.0 SP MCHC 33.8 g/dL 32.0-36.0 SP RDW 13.9 % 11.0-15.0 SP PLATELET COUNT 308 Thousand/uL 140-400 SP MPV 10.0 fL 7.5-12.5 SP ABSOLUTE NEUTROPHILS 4811 cells/uL 1500- 7800 SP ABSOLUTE LYMPHOCYTES 3002 cells/uL 850-3 900 SP ABSOLUTE MONOCYTES 713 cells/uL 200-950 SP ABSOLUTE EOSINOPHILS 131 cells/uL 15-500 SP ABSOLUTE BASOPHILS 44 cells/uL 0-200 SP NEUTROPHILS 55.3 % NRG SP LYMPHOCYTES 34.5 % NRG SP MONOCYTES 8.2 % NRG SP EOSINOPHILS 1.5 % NRG SP BASOPHILS 0.5 % NRG SP Encounters ACCT No. Visit Date/Time Discharge Status POS Pt. Type Provider Facility Loc./Un it POS Complaint POS [id number] 12/26/2018 14:20:00 12/26/2018 23:59: 59 CLS SP Outpatient GROVER BUNCH [facility] SP SP [id number] 12/19/2018 14:40:00 Document SPRegistration SP [id number] 10/30/2018 13:00:00 Document SPRegistration SP [id number] 12/06/2018 18:44:00 019 19:22:00 SP DIS Outpatient JOLANTA CERVANTES, RACHEL Heller [facility] ER FS CONSTIPATION SP [id number] 12/09/2015 12:37:00 016 23:59:59 SP CLS Outpatient BRENT OWENS, CODEY Paulino SP [facility] RAD CAD,THYROID MASS,HTN,HLP SP [id number] 11/17/2015 12:45:00 016 23:59:59 SP CLS Outpatient MONICO UGALDE MD [facility] CARD CAD,CVA,ROSAMARIA SP [id number] 06/10/2014 08:53:00 015 23:59:59 SP CLS Outpatient BRENT OWENS, CODEY MORENO [facility] CARD CAD,CVA,ROSAMARIA, HTN SP [id number] 06/10/2014 08:52:00 SP Registration SP [id number] 06/10/2014 08:52:00 SP Registration SP [id number] 04/02/2012 10:39:00 SP Registration SP
--- OUTSIDE RECORDS SUMMARY | 2018-12-30 18:27 | XMS REPORT ---
Author Author LUISATARSHAROSANNE POS Organization [facility] SP Address [address] [place] [address] SP Care Team Providers Care Screen Printing Supervisor Name Role Phone POS ROSANNE MORAN Unavailable SP PROBLEMS Type Condition ICD9-CM Code DLF04-CL Code Onset Dates Condition S tatus SNOMED POS Problem Wax in ear H61.20 June, 0 649916 002 POS Problem Constipation, chronic K59.09 Nov, 0 [id number] SP Problem History of myocardial infarction I25.2 08 Mar, 2017 0 [id number] SP Problem Acute deep vein thrombosis (DVT) of right lower extrem ity I82.401 22 SP 2016 0 SP Problem Dizziness, nonspecific R42 May, 0 061621038 SP Problem Hyperlipidemia E78.5 08 May, 2007 0 55 052506 SP Problem Marijuana use F12.90 Apr, 0 191 865923 SP Problem Pneumonia J18.9 June, 0 5515323 07 SP Problem Numbness of left hand R20.0 06 Sep, 2014 0 40553292 SP Problem Ear discharge of right ear H92.11 Feb, 0 64144707 SP Problem Generalized hyperreflexia R29.2 16 Jan, 2015 0 24444862 SP Problem Weakness of both lower extremities R29.898 2014 0 858339 SP Problem Encounter for staple removal Z48.02 23 May, 201 6 0 04403401 SP Problem Thyroid mass 246.9 04 May, 2014 0 2375 94671 SP Problem History of myocardial infarction 412 08 Mar, 2017 0 038327483 SP Problem Cerebrovascular disease 437.9 10 Jun, 2011 0 34500396 SP Problem Back pain, thoracic 724.1 10 Aug, 2013 0 656373090 SP Problem Physical deconditioning 799.3 Sep, 0 [id number] SP Problem Ear discharge of right ear 388.60 11 Feb, 2015 0 94911072 SP Problem Leg swelling 729.81 08 Mar, 2017 0 2484 65468 SP Problem Acute deep vein thrombosis (DVT) of right lower extrem ity 453.40 22 2016 0 133343196 SP Problem 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 Jan, 0 5430 4004 SP Problem History of fall Z91.81 Dec, 0 4 47427808 SP Problem Mastoiditis, acute, left 383.00 Apr, 0 981142151 SP Problem Numbness of right lower extremity R20.0 Feb 0 36985731 SP Problem Tobacco abuse counseling Z71.6 May, 0 131317467 SP Problem Spastic dysarthria 784.51 Jan, 0 349083137 SP Problem Physical deconditioning R53.81 Sep, 0 16024723520570 SP Problem Mastoiditis, acute, left H70.002 Apr, 0 410076948 SP Problem Respiratory failure, acute 518.81 June, 0 10479512 SP Problem History of fall V15.88 Dec, 0 4 22937855 SP Problem Spastic dysarthria R47.1 Jan, 0 953110491 SP Problem Late effect of stroke 438.9 Jan, 0 0382068849588 SP Problem Respiratory failure, acute J96.00 June, 0 45746477 SP Problem Noncompliance V15.81 Jan, 0 705 8009 SP Problem Pneumonia 486 June, 0 7870598 07 SP Problem Weakness of both lower extremities 729.89 2014 0 35777507 SP Problem COPD (chronic obstructive pulmonary disease) 496 17 Mar, 2013 0 SP Problem 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 June, 0 612480801 SP Problem HTN (hypertension) 401.9 June, 0 04178865 SP Problem Personal history of DVT (deep vein thrombosis) V12.51 08 Mar, 2017 0 SP Problem Generalized hyperreflexia 796.1 Jan, 0 04579063 SP Problem Tobacco abuse counseling V65.42 May, 0 598379516 SP Problem Nasopharyngeal carcinoma C11.9 June, 0 162904569 SP Problem Dizziness, nonspecific 780.4 May, 0 979083807 SP Problem Acute alcoholic intoxication with complication 305.00 11 Feb, 2015 0 SP Problem Marijuana use 305.20 09 Apr, 2017 0 191 135132 SP Problem Numbness of right lower extremity 782.0 11 Feb 0 51291390 SP Problem Leukocytosis 288.60 June, 0 1115 25428 SP Problem Midline low back pain without sciatica 724.2 1 9 Nov, 2014 0 272870851 SP Problem Constipation, chronic 564.00 Nov, 0 474703662 SP Problem Acute alcoholic intoxication with complication F10 .929 11 Feb, 2015 0 SP Problem 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, 2011 0 SP Problem History of nasopharyngeal cancer V10.02 13 Sep, 2011 0 SP Problem Overdose drug T50.901A June, 0 556 56828 SP Problem Overdose drug 977.9 June, 0 556 62441 SP Problem Back pain, thoracic M54.6 10 Aug, 2013 0 891606385 SP Problem Hyperlipidemia 272.4 08 May, 2007 0 55 932102 SP Problem Personal history of DVT (deep vein thrombosis) Z86 .718 08 Mar, 2017 0 SP Problem Thyroid mass E07.9 May, 0 2375 49251 SP Problem Cerebrovascular disease I67.9 10 Jun, 2011 0 88184707 SP Problem Cerebral infarction 434.91 08 May, 2007 0 258455601 SP Problem Midline low back pain without sciatica M54.5 1 9 Nov, 2014 0 860774955 SP Problem Vrdpm-ps-cuyxrgc renal failure N17.9 18 June, 2 012 0 702458687 SP Problem Leg swelling M79.89 08 Mar, 2017 0 2484 45625 SP Problem Late effect of stroke I69.30 Jan, 0 6999570545735 SP Problem Leukocytosis D72.829 June, 0 1115 86034 SP Problem Cerebral infarction I63.9 08 May, 2007 0 125041975 SP Problem Noncompliance Z91.19 Jan, 0 705 8009 SP Problem Insomnia G47.00 Jan, 0 8696535 01 SP Problem COPD (chronic obstructive pulmonary disease) J44.9 17 Mar, 2013 0 SP Problem Chronic back pain M54.9 Active 13 1303029 SP Problem Insomnia 780.52 Jan, 0 0170769 01 SP Problem Numbness of left hand 782.0 06 Sep, 2014 0 38920421 SP Problem Atrial fibrillation, unspecified type I48.91 Active 22708697 SP Problem Anxiety 300.00 June, 0 8832228 2 SP Problem Bulbar palsy 335.22 Jan, 0 5430 4004 SP Problem STEMI (ST elevation myocardial infarction) 410.90 08 May, 2007 0 SP Problem CAD (coronary artery disease) 414.00 Sep, 12 0 66308343 SP Problem Wax in ear 380.4 June, 0 790321 002 SP Problem HTN (hypertension) I10 17 Jun, 2011 0 30335912 SP Problem Encounter for staple removal V58.32 23 May, 6 0 01487628 SP Problem CAD (coronary artery disease) I25.10 Sep, 12 0 40676791 SP Problem STEMI (ST elevation myocardial infarction) I21.3 May, 0 SP Problem Anxiety F41.9 June, 0 4343635 2 SP Problem Hypertension I10 Active 7750455 3 SP Problem Qqynl-kk-xjolyjk renal failure 584.9 22 June, 012 0 764237604 SP ALLERGIES No Information ENCOUNTERS Encounter Location Date Diagnosis POS [address] [address] Apr, Atrial SPfibrillation, unspecified type I48.[address] [address] Apr, Atrial SPfibrillation, unspecified type I48.[address] [address] Apr, Atrial SPfibrillation, unspecified type I48.[address] [address] Apr, SP back pain M54.[address] [address] Apr, Atrial SPfibrillation, unspecified type I48.[address] [address] Mar, Atrial SPfibrillation, unspecified type I48.91 [facility] [address] [facility] [id number] [address] [place] [address] SP 14 Mar, 2018 SP [facility] [id number] [address] Mar, SP cerumen in ear canal, bilateral H61.23 ; Acute otitis media H66.90 and Chronic back pain M54.[address] [address] 13 Mar, 2018 Atrial SPfibrillation, unspecified type I48.[address] [address] Mar, Atrial SPfibrillation, unspecified type I48.[address] [address] Feb, SP back pain M54.[address] [address] Feb, Atrial SPfibrillation, unspecified type I48.[address] [address] Feb, SP back pain M54.[address] [address] Feb, Atrial SPfibrillation, unspecified type I48.91 [facility] [address] [facility] [id number] [address] [place] [phone] SP Feb, Chronic back pain M54.[address] [address] Feb, Atrial SPfibrillation, unspecified type I48.[address] [address] Feb, Atrial SPfibrillation, unspecified type I48.[address] [address] Feb, SP back pain M54.9 and Hypertension I10 [facility] [id number] [address] Feb, [facility] [address] [facility] [id number] [address] [place] [phone] SP Jan, [facility] [address] [facility] [id number] [address] [place] [phone] SP Jan, SP [facility] [address] [facility] [id number] [address] [place] [phone] SP Jan, SP [facility] [address] [facility] [id number] [address] [place] [phone] SP Dec, SP [facility] [address] [facility] [id number] [address] [place] [phone] SP Dec, SP [facility] [address] [facility] [id number] [address] [place] [phone] SP Nov, SP IMMUNIZATIONS No Known Immunizations SOCIAL HISTORY Never Assessed REASON FOR VISIT INR PLAN OF CARE VITAL SIGNS MEDICATIONS Unknown Medications RESULTS Name Result Date Reference Range POS INR (IN HOUSE) 2018-04-10 SP INR 2.0 1.10 - 3.30 SP PREVIOUS INR 3.6 SP CURRENT COUMADIN DOSE 5mg S,T,W,F,Sa, 10mg all oher days SP NEW COUMADIN DOSE 5mg S,T,W,F,Sa, 10mg all other days SP Lot # [id number] SP Exp date 07/06/2019 SP PROCEDURES Procedure Date Ordered Result Body Site POS PROTHROMBIN TIME April 10, 2018 SP INSTRUCTIONS MEDICATIONS ADMINISTERED No Known Medications MEDICAL (GENERAL) HISTORY Type Description Date POS Medical History stroke SP Medical History seizure SP Medical History esophageal cancer SP Medical History chronic constipation SP Medical History marijuana use SP Medical History mastoiditis,acute,left SP Medical History history of myocardial infarction SP Medical History DVT's SP Medical History leg swelling SP Medical History acute DVT of right lower extremity SP Medical History acute alcoholic intoxication with compli cation SP Medical History numbness of right lower extremity SP Medical History ear discharge of right ear SP Medical History bulbar palsy chronic SP Medical History generalized hyperreflexia SP Medical History noncompliance SP Medical History spastic dysarthria SP Medical History weakness of both lower extremities SP Medical History history of falls SP Medical History midline low back pain without sciatica SP Medical History numbness of left hand SP Medical History physical deconditioning SP Medical History anxiety SP Medical History wax in ear SP Medical History tobacco abuse counseling SP Medical History thyroid mass SP Medical History dizziness,nonspecific SP Medical History back pain, thoracic SP Medical History COPD chronic SP Medical History CAD SP Medical History history of nasopharyngeal cancer SP Medical History acute on chronic renal failure SP Medical History leukocytosis SP Medical History pneumonia SP Medical History respiratory failure, acute SP Medical History HTN SP Medical History nasopharyngeal carcinoma chronic SP Medical History overdose drug SP Medical History cerebrovascular disease SP Medical History insomnia SP Medical History hyperlipidemia SP Medical History STEMI (ST elevation myocardial infarctio n) SP Medical History cerebral infarction chronic SP
== END 2018-12-06 19:22 | disposition home or self-care (01) ==
LOC: EDUNIT# 18:43 → ER FS 18:44
DX: K59.00 Constipation, unspecified (principal); J44.9 Chronic obstructive pulmonary disease, unspecified; I25.2 Old myocardial infarction; Z86.73 Personal history of transient ischemic attack (TIA), and cerebral infarction without residual deficits; Z88.8 Allergy status to other drugs, medicaments and biological substances; Z79.82 Long term (current) use of aspirin; Z79.02 Long term (current) use of antithrombotics/antiplatelets
CPT/HCPCS: 99283

== ENCOUNTER 2019-07-14 16:32 | Observation (INO) | payer MEDICAID ==
[~2019-07-14] VITALS: Ht 177 cm; Wt 103.9 kg
[~2019-07-14 16:32] MED LIST changes: +NA P133E22 RC; +ONDA4TAB11 PO; +POLY17PO6 PO; +RELISTOR12 SQ
--- NOTE | 2019-07-14 16:39 | ED General ---
General Chief Complaint: General Problems/Pain Stated Complaint: HOT Source of Information: Patient, EMS Exam Limitations: No Limitations History of Present Illness Date Seen by Provider: Jul 14, 2019 Time Seen by Provider: 16:34 Initial Comments Presents via EMS to this ER with complaint of sudden onset of feeling sweaty and dizzy while sitting outside in 90 weather on his front porch. Denies chest pain or shortness of air. Denies fever or chills or recent illness. Denies any abdominal pain or nausea. Symptoms improving on arrival to the ER Allergies and Home Medications Allergies Coded Allergies: metoclopramide (Verified Allergy, Unknown, 12/14/06) prochlorperazine (Verified Allergy, Unknown, 12/14/06) Home Medications Hydrocodone/Acetaminophen 1 Each Tablet, 1 EA PO Q8H PRN for PAIN-MODERATE (5- 7), (Reported) Lisinopril 20 Mg Tablet, 20 MG PO DAILY PRN for BLOOD PRESSURE, (Reported) Warfarin Sodium 10 Mg Tablet, 10 MG PO SUN,SUN,FR, (Reported) TAKES 10MG ON SUN,SUN,SUN TAKES 5MG ON SUN,TUE,THUR,SAT Warfarin Sodium 5 Mg Tablet, 5 MG PO SUN,E,ALEXSI,SAT, (Reported) TAKES 10MG ON SUN,SUN,FRI TAKES 5MG ON SUN,E,THUR,SAT Patient Home Medication List Home Medication List Reviewed: Yes Review of Systems Review of Systems Constitutional: see HPI, diaphoresis, dizziness, malaise EENTM: eye pain ("right eye burning yesterdaY") Respiratory: No cough, No short of breath Cardiovascular: No chest pain, No edema, No palpitations, No syncope Gastrointestinal: No abdominal pain, No loss of appetite, No nausea, No vomiting Musculoskeletal: no symptoms reported Skin: no symptoms reported Psychiatric/Neurological: See HPI; Denies Headache, Denies Weakness Past Xkkegor-Vrjalp-Oznxon Hx Past Med/Social Hx: Reviewed Nursing Past Med/Soc Hx Patient Social History Recent Hopitalizations: No Seasonal Allergies Seasonal Allergies: No Past Medical History Respiratory: Yes (copd) Cardiac: Yes Heart Attack Neurological: Yes Stroke Reproductive Disorders: No Sexually Transmitted Disease: No Gastrointestinal: No Musculoskeletal: Yes Endocrine: No Cancer: Yes (nasopharyngeal at age 18) Psychosocial: Yes Blood Disorders: No Physical Exam Vital Signs Vital Signs - First Documented 07/14/19 16:37 Temp 36.5 Pulse 75 Resp 18 B/P (MAP) 128/70 (89) Pulse Ox 94 O2 Delivery Room Air Capillary Refill : Height, Weight, BMI Height: '" Weight: lbs. oz. kg; 28.00 BMI Method: General Appearance: No Apparent Distress, WD/WN Eyes: Bilateral Eye PERRL, Bilateral Eye EOMI HEENT: PERRL/EOMI, TMs Normal, Normal ENT Inspection, Pharynx Normal Neck: Non Tender, Supple Respiratory: Chest Non Tender, Lungs Clear Cardiovascular: Regular Rate, Rhythm, No Edema, No JVD, Normal Peripheral Pulses Gastrointestinal: Non Tender, Soft Back: Normal Inspection, No CVA Tenderness Extremity: Normal Capillary Refill, Normal Inspection, Non Tender, No Calf Tenderness Neurologic/Psychiatric: Alert, Oriented x3 Skin: Normal Color, Warm/Dry Progress/Results/Core Measures Suspected Sepsis SIRS Temperature: Pulse: Respiratory Rate: Laboratory Tests 07/14/19 16:47: White Blood Count 5.7 Blood Pressure / Mean: Laboratory Tests 07/14/19 16:47: Creatinine 1.03, Platelet Count 202 Results/Orders Lab Results Laboratory Tests Test 07/14/19 16:47 Range/Units White Blood Count 5.7 4.3-11.0 10^3/uL Red Blood Count 3.92 L 4.35-5.85 10^6/uL Hemoglobin 10.7 L 13.3-17.7 G/DL Hematocrit 32 L 40-54 % Mean Corpuscular Volume 82 80-99 FL Mean Corpuscular Hemoglobin 27 25-34 PG Mean Corpuscular Hemoglobin Concent 33 32-36 G/DL Red Cell Distribution Width 13.4 10.0-14.5 % Platelet Count 202 130-400 10^3/uL Mean Platelet Volume 9.4 7.4-10.4 FL Neutrophils (%) (Auto) 63 42-75 % Lymphocytes (%) (Auto) 26 12-44 % Monocytes (%) (Auto) 8 0-12 % Eosinophils (%) (Auto) 2 0-10 % Basophils (%) (Auto) 1 0-10 % Neutrophils # (Auto) 3.6 1.8-7.8 X 10^3 Lymphocytes # (Auto) 1.5 1.0-4.0 X 10^3 Monocytes # (Auto) 0.5 0.0-1.0 X 10^3 Eosinophils # (Auto) 0.1 0.0-0.3 10^3/uL Basophils # (Auto) 0.0 0.0-0.1 10^3/uL Sodium Level 145 135-145 MMOL/L Potassium Level 2.3 *L 3.6-5.0 MMOL/L Chloride Level 121 H 98-107 MMOL/L Carbon Dioxide Level 12 L 21-32 MMOL/L Anion Gap 12 5-14 MMOL/L Blood Urea Nitrogen 9 7-18 MG/DL Creatinine 1.03 0.60-1.30 MG/DL Estimat Glomerular Filtration Rate > 60 BUN/Creatinine Ratio 9 Glucose Level 65 L 70-105 MG/DL Calcium Level 5.1 *L 8.5-10.1 MG/DL Magnesium Level 1.1 *L 1.6-2.4 MG/DL My Orders Orders - RITU KRAUSE DO Cbc With Automated Diff (07/14/19 16:33) Basic Metabolic Panel (07/14/19 16:33) Magnesium (07/14/19 17:29) Potassium Chloride (Tablet) (K Dur Table (07/14/19 17:30) Ekg Tracing (07/14/19 17:38) Magnesium 1 Gm/100 Ml Ivpb (Magnesium Min (07/14/19 18:00) Medications Given in ED Current Medications Medications Dose Ordered Sig/Naima Route Start Time Stop Time Status Last Admin Dose Admin Potassium Chloride 40 meq ONCE ONCE PO 07/14/19 17:30 07/14/19 17:31 DC 07/14/19 17:34 40 MEQ Vital Signs/I&O 07/14/19 16:37 Temp 36.5 Pulse 75 Resp 18 B/P (MAP) 128/70 (89) Pulse Ox 94 O2 Delivery Room Air Capillary Refill : Progress Note : Progress Note Episode of dizziness and diaphoresis while sitting in extreme heat outdoors today. Symptoms spontaneously resolving on arrival to the ER. Unexpected multiple lab chemistry abnormalities requiring admission. ECG Initial ECG Impression Time: 17:45 Initial ECG Rate: 47 Initial ECG Rhythm: S.Todd Initial ECG Intervals: Normal Initial ECG Impression: Sinus Bradycardia Departure Communication (Admissions) Time/Spoke to Admitting Phy: 18:[address] Batres, who accepts for OBS/ admission Impression Primary Impression: Hypokalemia Additional Impressions: Dizziness Hypocalcemia Hypomagnesemia Disposition: ADMITTED INPATIENT Condition: Stable Admissions Decision to Admit Reason: Admit from ER (General) Decision to Admit/Date: Jul 14, 2019 Time/Decision to Admit Time: 17:45 Departure-Patient Inst. Referrals: BREANNE SANABRIA MD (PCP/Family) Primary Care Physician RITU KRAUSE DO Jul 14, 2019 16:39
[2019-07-14 17:11] LABS: BASOPHILS % (AUTO) 1 % (0-10); EOSINOPHILS # (AUTO) 0.1 10^3/uL (0.0-0.3); EOSINOPHILS % (AUTO) 2 % (0-10); HEMATOCRIT 32 % (40-54); HEMOGLOBIN 10.7 G/DL (13.3-17.7); LYMPHOCYTES # (AUTO) 1.5 X 10^3 (1.0-4.0); LYMPHOCYTES % (AUTO) 26 % (12-44); MEAN CORPUSCULAR HEMOGLOBIN 27 PG (25-34); MEAN CORPUSCULAR HGB CONC 33 G/DL (32-36); MEAN CORPUSCULAR VOLUME 82 FL (80-99); MEAN PLATELET VOLUME 9.4 FL (7.4-10.4); MONOCYTES # (AUTO) 0.5 X 10^3 (0.0-1.0); MONOCYTES % (AUTO) 8 % (0-12); NEUTROPHILS # (AUTO) 3.6 X 10^3 (1.8-7.8); NEUTROPHILS % (AUTO) 63 % (42-75); PLATELET COUNT 202 10^3/uL (130-400); RED CELL DISTRIBUTION WIDTH 13.4 % (10.0-14.5); WHITE BLOOD COUNT 5.7 10^3/uL (4.3-11.0)
[2019-07-14 17:26] LABS: SODIUM 145 MMOL/L (135-145)
[2019-07-14 17:27] LABS: BUN/CREATININE RATIO 9; CARBON DIOXIDE 12 MMOL/L (21-32); CHLORIDE 121 MMOL/L (98-107); CREATININE SERUM 1.03 MG/DL (0.60-1.30); GFR ESTIMATED > 60; GLUCOSE 65 MG/DL (70-105)
[2019-07-14 17:28] LABS: POTASSIUM 2.3 MMOL/L (3.6-5.0)
[2019-07-14 17:29] LABS: CALCIUM 5.1 MG/DL (8.5-10.1)
[2019-07-14] MEDS ORDERED: KCL 20 MEQ TAB (K-DUR) PO ONE (17:30)
[2019-07-14] MEDS: MAGNESIUM 1 GM/100 ML IVPB 100 ML IV SCH ×2 (17:59→19:15)
--- NOTE | 2019-07-14 20:42 | NUR ---
TARA GONZALEZ admitted to room 413-1, with an admitting diagnosis of Hypokalemia, Hypocalcemia, Hypomagnesemia, on 07/14/19 from ED via EMS, accompanied by EMS.TARA GONZALEZ introduced to surroundings, call light, bed controls, phone, TV, temperature control, lights, meal times, smoking policy, visitor policy, side rail policy, bathrooms and showers. Patient Rights given to patient in the handbook. TARA GONZALEZ verbalizes understanding that [facility] is not responsible for the loss or damage to any personal effects or valuables that are kept in the patients posession during their hospitalization. TARA GONZALEZ verbalizes understanding of Interdisciplinary Patient Education. Patient and/or family were informed about the Rapid Response Team and its purpose.
[2019-07-14 20:54] VITALS: BP 129/86
[2019-07-14] MEDS ORDERED: diphenhydrAMINE 25 MG TAB (BENADRYL) PO PRN (22:30)
[2019-07-14] MEDS ORDERED: ALPRAZolam 0.25 MG (XANAX) TAB PO PRN (22:30)
[2019-07-14] MEDS ORDERED: CALCIUM GLUCONATE 10% INJ 4.65 MEQ in NS (IVPB) 50 ML IV SCH ×3 (22:30→23:45)
[2019-07-14] MEDS ORDERED: ENOXAPARIN 40 MG/0.4 ML (LOVENOX) SYR SC SCH (22:30)
[2019-07-14] MEDS ORDERED: LOPERAMIDE 2 MG (IMODIUM) TABLET PO PRN (22:30)
[2019-07-14] MEDS ORDERED: DOCUSATE SODIUM 100 MG (COLACE) CAP PO PRN (22:30)
[2019-07-14] MEDS ORDERED: ONDANSETRON 4 MG/2 ML (SDV) Z0FRAN IVP PRN (22:30)
[2019-07-14] MEDS ORDERED: HYDROcodone/APAP 5 MG/325 MG (LORTAB) TAB PO PRN (22:30)
[2019-07-14] MEDS ORDERED: MELATONIN 3 MG TABLET PO PRN (22:30)
[2019-07-14] MEDS ORDERED: CALCIUM CARBONATE 500 MG (TUMS) TAB.CHEW PO PRN (22:30)
[2019-07-14] MEDS ORDERED: ACETAMINOPHEN 500 MG TAB (TYLENOL) PO PRN (22:30)
--- OUTSIDE RECORDS SUMMARY | 2019-07-14 22:47 | XMS REPORT ---
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 Rigger Name Role Phone ROSANNE MORAN Unavailable MARK ARNOLD Unavailable Unavailable RACHEL STOVER Unavailable Unavailable BREANNE SANABRIA PCP GROVER BUNCH Unavailable Unavailable Unavailable Unavailable GROVER BUNCH Unavailable MARK Starr Unavailable ROSANNE MORAN Unavailable Unavailable Unavailable Unavailable Unavailable Unavailable Unavailable Allergies Normalized Allergy Reported Date of Reaction(s) Care Provider Facility Allergy Type classification allergen Allergy Onset Drug Allergy DOPamine Metoclopramide 12-14-2006 - no informatio n RACHEL [facility] Via (3 sources.) Antagonists Translations: [facility]at Translations: [ Hospital - [ Allergy to Metoclopramide [place] substance] ] (32312) Drug Allergy Prochlorperazi Prochlorperazi 12-14-2006 - no infor tony RAMOS JOLANTA [facility] Via (3 sources.) ne ne [facility]at Translations: Translations: Hospital - [ Allergy to [ [place] substance] Prochlorperazi (58768) ne] Medications Current Medications Medication Ingredient Drug Dose Dates Status Sig Sig Care Class(es) (Normalized) (Original) Provid er acetaminoph Acetaminoph Opioid 04-07-19 Active take 1 Hydrocodon e- no en 325 mg / en / Agonist 19 tablet by Acetaminophe n mikhail HYDROcodone HYDROcodone mouth every n 10-325 MG bitartrate Translation eight hours Orally every 10 mg oral s: [ as needed 8 hours 1 tablet (2 Hydrocodone tablet as sources.) -Acetaminop needed 8h 02 hen 10-325 May, 2018 28 MG] days Active Completed/Discontinued Medications Medication Ingredient Drug Dose Dates Status Sig Sig Care Class(es) (Normalized) (Original) Provid er no Albuterol beta2-Adren 04-18-19 Complete no Albuterol no information ergic 13 d information Sulfate na me (1 source.) Agonist Discontinued 5 RESPIRATORY (INHALATION) April 17, 2012 no Aspirin Platelet no no Aspirin no information Aggregation informat information Active 81 name (2 Inhibitor, ion ORAL Daily sources.) Nonsteroida l Anti-inflam matory Drug 04-17-2012 Completed no Aspirin no name inform Disconti ation nued NOT APPLICAB LE April 17, 2012 no clopidogrel P2Y12 no no Clopidogrel no information Platelet informat information Bisulfate name (1 source.) Inhibitor ion Active 75 ORAL Daily no Hydrocodone no no no Hydrocodone no information Bit/Acetami information informat information Bit/A cetamin name (2 nophen ion ophen Active sources.) 1 ORAL Every 6 Hours as needed 04-17-2012 Completed no Hydrocod no name inform one ation Bit/Acet aminophe n Disconti nued 1 ORAL As Needed April 17, 2012 no Lisinopril Angiotensin no no Lisinopril no information Converting informat information Active 20 name (2 Enzyme ion ORAL Daily sources.) Inhibitor 04-17-2012 Completed no Lisinopr no name inform il ation Disconti nued 10 ORAL Daily April 17, 2012 0.6 ml methylnaltr Opioid 12-07-19 Complete no Methylnaltre no methylnaltr exone Antagonist 19 - d information xone name exone 12-07-19 Discontinued bromide 20 19 - 12 mg/ml 12-07-19 SUBCUTANEOUS injection 19 Once as (1 source.) needed for Constipation -3RD Line 1 December 06, 2018 7:17pm (One-Time) If 3 days MiraLAX/enem as fail then stop laxatives Give Relistor. See PCP if no results in 24h no Metoprolol beta-Adrene no no Metoprolol no information rgic informat information Tartrate name (1 source.) Tray ion Active 25 ORAL Daily no Nitroglycer Nitrate no no Nitroglyceri n o information in Vasodilator informat information n Active 0.4 name (1 source.) ion SUBLINGUAL As Needed ondansetron Ondansetron Serotonin-3 12-07-19 Complete no Ond ansetron no 4 mg Receptor 19 - d information Discontinued n mikhail disintegrat Antagonist 12-07-19 4 ORAL Every ing oral 19 - 6 Hours as tablet (1 12-07-19 needed for source.) 19 Nausea/Vomit ing 8 December 06, 2018 7:17pm (One-Time) no pantoprazol Proton Pump 04-18-19 Complete no Pantopra zole no information e Inhibitor 13 d information Sodium n mikhail (1 source.) Discontinued 40 ORAL Daily April 17, 2012 polyethylen POLYETHYLEN Osmotic 12-07-19 Complete no Polyeth ylene no e glycol E GLYCOL Laxative 19 - d information Glycol 3350 name 3350 85081 3350 12-10-19 Discontinued mg powder 19 17 ORAL for oral Three Times solution (1 A Day 1 3 source.) December 06, 2018 7:17pm December 09, 2018 no Simvastatin HMG-CoA no no Simvastatin no information Reductase informat information Active 20 name (1 source.) Inhibitor ion ORAL Daily sodium Sodium no 12-07-19 Complete no Na no phosphate, Phosphate, information 19 - d information Phos ,M-B/Na name dibasic Dibasic / 12-10-19 Phos,Di-Ba 59.3 mg/ml Sodium 19 Discontinued / sodium Phosphate, 133 RECTAL phosphate, Monobasic Twice A Day monobasic as needed 161 mg/ml for enema (1 Constipation source.) -1ST Line 5 3 December 06, 2018 7:17pm December 09, 2018 no Trazadone no 04-18-19 Complete no Trazadone no information information 13 d information Disconti nued name (1 source.) 50 ORAL Daily April 17, 2012 no traZODone Serotonin no no Trazodone no information Reuptake informat information Hcl Active name (1 source.) Inhibitor ion 50 ORAL Daily Problems Active Problems Problem Normalized Date Last Normalized Normalized Provider Fa cility Classification Problem(s) Recorded Problem Problem Sta tus Duration Acute Acute Chronic Active ROSANNE Community myocardial myocardial [address] infarction (5 infarction of [facility] sources.) Translations: [place] ([address]) [ STEMI (ST elevation myocardial infarction), STEMI - ST elevation myocardial infarction, STEMI (ST elevation myocardial infarction)] Acute and Ojatl-rq-pwkiz Chronic Active ROSANNE Communi ty unspecified ic renal [address] renal failure failure of [facility] (2 sources.) Translations: [place] () [ Otuzm-ck-qbenu ic renal failure, Jagvn-bs-lpmlg ic renal failure] Allergic Allergy status Episodic Active RACHEL JOLANTA [facility] Via reactions (1 to other [facility] source.) drugs, Hospital - medicaments [place] and biological (99944) substances status Anxiety Anxiety Chronic Active ROSANNE Community disorders (5 Translations: [address] sources.) [ Anxiety, of [facility] Anxiety] [place] () Acute Cerebral Chronic Active ROSANNE Community cerebrovascula infarction [address] r disease (5 Translations: of [facility] sources.) [ Cerebral [place] () infarction, Cerebral infarction] Other and Cerebrovascula Chronic Active ROSANNE Communi ty ill-defined r disease [address] cerebrovascula Translations: of [facility] r disease (5 [ [place] () sources.) Cerebrovascula r disease, Cerebrovascula r disease] Residual Chronic back Episodic Active ROSANNE Community codes; pain [address] unclassified Translations: of [facility] (4 sources.) [ Chronic back [place] () pain] Chronic Chronic Chronic Active ROSANNE Community obstructive obstructive [address] pulmonary lung disease of [facility] disease and Translations: [place] () bronchiectasis [ COPD (6 sources.) (chronic obstructive pulmonary disease), COPD (chronic obstructive pulmonary disease)] Other Constipation, Episodic Active RACHEL JOLANTA [facility] V ia gastrointestin unspecified [facility] al disorders Hospital - (2 sources.) [place] ([address]) Coronary Coronary Chronic Active ROSANNE Community atherosclerosi arterioscleros [address] Cente r s and other is of [facility] heart disease Translations: [place] () (9 sources.) [ CAD (coronary artery disease), CAD (coronary artery disease), OLD MYOCARDIAL INFARCTION, History of myocardial infarction, History of myocardial infarction] Unclassified Counseling no information Active ROSANNE Com munity (2 sources.) about tobacco [address] use of [facility] Translations: [place] ([address]) [ Tobacco abuse counseling, Tobacco abuse counseling] Other nervous Difficulty in Chronic Active [facility] walking, [address] Center disorders (12 elsewhere of [facility] sources.) classified [place] () Translations: [ - Difficulty walking R26.2] Other nervous Difficulty Chronic Active GROVER BUNCH [employer] [facility] walking [address] [place] [address] disorders (3 Translations: of [facility] sources.) [ Difficulty [place] () walking] Spondylosis; Dorsalgia, Episodic Active ROSANNE Communit y intervertebral unspecified [address] disc Translations: of [facility] disorders; [ - Chronic [place] () other back back pain problems (20 M54.9, Pain in sources.) thoracic spine, Back pain, thoracic, Low back pain, Midline low back pain without sciatica, Back pain, thoracic, Midline low back pain without sciatica] Essential Essential Chronic Active ROSANNE [facility] hypertension (primary) [address] (16 sources.) hypertension of [facility] Translations: [place] () [ - Hypertension I10, Hypertension, HTN (hypertension) , HTN (hypertension) , Hypertension] Disorders of Hyperlipidemia Chronic Active ROSANNE Comm unity lipid Translations: [address] metabolism (14 [ of [facility] sources.) Hyperlipidemia [place] () , Hyperlipidemia , Mixed hyperlipidemia , - Mixed hyperlipidemia E78.2, - Hyperlipidemia E78.5] Other ear and Impacted Episodic Active ROSANNE Community sense organ cerumen, [address] disorders (10 bilateral of [facility] sources.) Translations: [place] () [ - Excessive cerumen in ear canal, bilateral H61.23] Diseases of Leukocytosis Chronic Active ROSANNE Communi ty white blood Translations: [address] cells (2 [ of [facility] sources.) Leukocytosis, [place] () Leukocytosis] 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 Community aftercare (2 (current) use [address] sources.) of (Other Phone: of [facility] 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s ) [place] ([address]) Translations: [ - long-term current use of 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 Z79.01] Other long-term Episodic Active RACHEL JOLANTA [facility] Via aftercare (1 (current) use [facility] source.) of [facility] s/antiplatelet (11976) s Other long-term Episodic Active RACHEL JOLANTA [facility] Via aftercare (1 (current) use [facility] source.) of aspirin [facility] (54175) Other Long-term Episodic Active ROSANNE Community aftercare (2 current use of [address] sources.) 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 (Other Phone: of [facility] Translations: ) [place] ([address]) [ long-term current use of 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] Thyroid Mass of Chronic Active ROSANNE Community disorders ([address] sources.) Translations: of [facility] [ Thyroid [place] (32514) mass, Thyroid mass] Cancer of head Nasopharyngeal Chronic Active ROSANNE [employer] and neck ([address] sources.) Translations: of [facility] [ [place] () Nasopharyngeal carcinoma, Nasopharyngeal carcinoma] 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 (1 alcohol abuse [address] source.) Translations: of [facility] [ Acute [place] ([address]20) alcoholic intoxication with complication] Substance-rela Nondependent Chronic Active ROSANNE Comm unity sean disorders cannabis abuse [address] (5 sources.) Translations: of [facility] [ Marijuana [place] (68524) use, Marijuana use] Otitis media Otitis media, Episodic Active ROSANNE Commu nity and related unspecified, [address] conditions (9 unspecified of [facility] sources.) ear [place] ([address]) Translations: [ - Acute otitis media H66.90, Acute mastoiditis without complications, Mastoiditis, acute, left, Mastoiditis, acute, left] Other Pain in right Episodic Active ROSANNE Communit y connective toe(s) [address] tissue disease Translations: (Other Phone: of [facility] (2 sources.) [ - Toe pain, ) [place] ([address]70 ) right M79.674] Other Personal Episodic Active RACHEL JOLANTA [facility] Via circulatory history of [facility] disease (1 transient Hospital - source.) ischemic [place] attack (TIA), (09212) and cerebral infarction without residual deficits 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 Translations: of [facility] nervous system [ Bulbar [place] ([address]50) conditions (5 palsy, Bulbar sources.) palsy] Mycoses (3 Tinea unguium Episodic Active GROVER YOUNG Com munity sources.) Translations: [address] [place] [address] [ - of [facility] Onychomycosis [place] (28506) B35.1] Cardiac Unspecified Chronic Active [facility] dysrhythmias atrial [address] (20 sources.) fibrillation of [facility] Translations: [place] () [ - Atrial fibrillation, unspecified type I48.91, Atrial fibrillation, Atrial fibrillation, unspecified type] Late effects Unspecified Chronic Active ROSANNE Communi ty of late effects [address] cerebrovascula of [facility] r disease (5 cerebrovascula [place] (94793) sources.) r disease Translations: [ Late effect of stroke, Late effect of stroke] Past or Other Problems Problem Normalized Date Last Normalized Normalized Provider Fa cility Classification Problem(s) Recorded Problem Problem Sta tus Duration Other nervous Abnormal Episodic Completed ROSANNEIntent system reflex [address] disorders (5 Translations: [facility] sources.) [ Generalized [place] ([address]995) hyperreflexia, Generalized hyperreflexia] Respiratory Acute Episodic Completed [facility] failure; respiratory [address] insufficiency; failure of [facility] arrest (adult) Translations: [place] () (2 sources.) [ Respiratory failure, acute, Respiratory failure, acute] Acute and Gritf-kt-ykfup Episodic Completed GROVER BUNCH [facility] unspecified ic renal [address] [place] [address] renal failure failure of [facility] (3 sources.) Translations: [place] ([address]360) [ Vztbh-va-mzban ic renal failure] Other Chronic Episodic Completed [facility] gastrointestin constipation [address] al disorders Translations: of [facility] (5 sources.) [ [place] ([address]89) Constipation, chronic, Constipation, chronic] Other Disorder of Episodic Completed [employer] connective musculoskeleta [address] r tissue disease l system of [facility] (4 sources.) Translations: [place] (35767) [ Weakness of both lower extremities] Conditions Dizziness and Episodic Completed ROSANNE Communi ty associated giddiness [address] with dizziness Translations: of [facility] or vertigo (5 [ Dizziness, [place] (14737) sources.) nonspecific, Dizziness, nonspecific] Poisoning by Drug overdose Episodic Completed ROSANNE Commu nity other Translations: [address] medications [ Overdose of [facility] and drugs (5 drug, Overdose [place] ([address]45) sources.) drug] Other injuries History of Episodic Completed ROSANNE Commun ity and conditions fall [address] due to Translations: of [facility] external [ History of [place] ([address]512) causes (5 fall, History sources.) of fall] Coronary History of Episodic Completed ROSANNE Community atherosclerosi myocardial [address] s and other infarction of [facility] heart disease Translations: [place] () (2 sources.) [ History of myocardial infarction, History of myocardial infarction] Phlebitis; History of Episodic Completed ROSANNE Community thrombophlebit thromboembolis [address] is and m of vein of [facility] thromboembolis Translations: [place] (42579) m (10 [ Personal sources.) history of DVT (deep vein thrombosis), Acute deep vein thrombosis (DVT) of right lower extremity, Embolism from venous thrombosis of lower leg, Acute deep vein thrombosis (DVT) of right lower extremity, Personal history of DVT (deep vein thrombosis)] Alcohol-relate Idiosyncratic Episodic Completed ROSANNE Com munity d disorders ([address] source.) Translations: of [facility] [ Acute [place] (65568) alcoholic intoxication with complication] Other ear and Impacted Episodic Completed ROSANNE Community sense organ cerumen, [address] disorders (2 unspecified of [facility] sources.) ear [place] ([address]3945) Translations: [ Wax in ear, Wax in ear] Residual Insomnia Episodic Completed ROSANNE Community codes; Translations: [address] unclassified [ Insomnia, of [facility] (2 sources.) Insomnia] [place] ([address]97) Other Leg swelling Episodic Completed ROSANNE Community connective symptom [address] tissue disease Translations: of [facility] (2 sources.) [ Leg [place] (10051) swelling, Leg swelling] Other Musculoskeleta Episodic Completed ROSANNE Communi ty connective l symptom [address] tissue disease Translations: of [facility] (1 source.) [ Weakness of [place] (20728) both lower extremities] Residual Noncompliance Episodic Completed ROSANNE Communit y codes; with treatment [address] Cente r unclassified Translations: of [facility] (2 sources.) [ [place] ([address]15) Noncompliance, Noncompliance] Malaise and Other malaise Episodic Completed [employer] ity fatigue (2 Translations: [address] sources.) [ Physical of [facility] deconditioning [place] (60145) , Physical deconditioning ] Other ear and Otorrhea Episodic Completed [employer] sense organ Translations: [address] disorders (2 [ Ear of [facility] sources.) discharge of [place] (98758) right ear, Ear discharge of right ear] Cancer of head Personal Episodic Completed ROSANNE [employer] y and neck (5 history [address] sources.) malignant of [facility] neoplasm of [place] (95966) unspecified site of lip, oral cavity, and pharynx Translations: [ History of nasopharyngeal cancer, History of nasopharyngeal cancer] Residual Physical Episodic Completed [facility] codes; deconditioning [address] [place], [place] [address]e r unclassified Translations: of [facility] (3 sources.) [ Physical [place] (13151) deconditioning ] Pneumonia Pneumonia Episodic Completed [employer] (except that Translations: [address] caused by [ Pneumonia, of [facility] tuberculosis Pneumonia] [place] (49826) or sexually transmitted disease) (2 sources.) Other nervous Skin sensation Episodic Completed [employer] munity system disturbance [address] disorders (10 Translations: of [facility] sources.) [ Numbness of [place] (02198) right lower extremity, Numbness of left hand, Numbness of left hand, Numbness of right lower extremity] Other nervous Spastic Episodic Completed [employer] system dysarthria [address] disorders (5 Translations: of [facility] sources.) [ Spastic [place] (86625) dysarthria, Spastic dysarthria] Procedures Procedure Normalized Procedure Procedure Result Performer Facility Date 05-01-2018 Prothrombin time no information no name [facility] ([id number]) 04-10-2018 Prothrombin time no information no name [facility] ([id number]) 05-29-2015 Removal of suture no information no name [facility] (33839) Immunizations The data below is from unstructured sources No Known ImmunizationsNo Immunization Information AvailableNo Immunization Information Available No Known Immunizations No Known Immunizations No Known Immunizations No Known Immunizations No Known Immunizations No Known Immunizations No Known Immunizations No Known Immunizations Results Test Name Value Interpretation Reference Range Date Time Fa cility (Normalized) (Normalized) (Medline Reference) other on null CURRENT COUMADIN 10 mg on (no code) [facility] sunday and Center [facility] sunday, 5 mg all [facility] the other days (87566) Exp date 05/06/2019 (no code) [facility] (09064) Lot # [id number] (no code) [facility] (06314) not yet categorized on null Any Rx 0~0 (no code) [facility] medications, OTC [facility] medications, or [facility] herbal products (84985) changes since last visit? Exp date 07/06/19 (no code) [facility] (51787) Exp date 07/06/19 (no code) [facility] (06320) Exp date 07/06/2019 (no code) [facility] (57450) Exp date 07/06/2019 (no code) [facility] (86811) Lot # [id number] (no code) [facility] (03046) Missed doses of 07/06/19~none (no code) [facility] medication in [facility] the last 5-7 [facility] ? (21634) NEW COUMADIN 10 mg MWF, 5 mg (no code) [facility]SE all other [facility] days~cont [facility] current (99009) NEW COUMADIN current~current (no code) [facility] (03924) NEW COUMADIN 10mg M, 5 mg (no code) [facility] DOSE aod~10 mg M-F, 5 [facility] [place] mg aod [facility] (66639) NEW COUMADIN 10mg MF, 5mg (no code) [facility] DOSE AOD~10mg MWF, Center [facility] 5mg AOD [facility] (00181) laboratory on null INR Coag (PPP) 2.9~1.8 (no code) [facility] [Relative time] [facility] () INR Coag (PPP) 2.2~2.9 (no code) [facility] [Relative time] [facility] () INR Coag (PPP) 2.2~1.8 (no code) [facility] [Relative time] [facility] () INR Coag (PPP) 2.1 {INR} (no code) 0.9 - 1.1 {INR} [facility] [Relative time] [facility] () INR Coag (PPP) 4.1~2.4 (no code) [facility] [Relative time] [facility] () INR Coag (PPP) 1.6~1.9 (no code) [facility] [Relative time] [facility] () INR Coag (PPP) 2.4~2.3 (no code) [facility] [Relative time] [facility] () INR Coag (PPP) 1.8~2.2 (no code) [facility] [Relative time] [facility] () hematology on null INR Coag (PPP) 2.3~1.7 (no code) [facility] [Relative time] [facility] () not yet categorized on 2019-04-15 Any Rx 0~0 (no code) [facility] medications, OTC [facility] medications, or [facility] herbal products (24665) changes since last visit? Exp date 11/05/2019 (no code) [facility] () Lot # [id number] (no code) [facility] () NEW COUMADIN 10 mg MWF, 5mg (no code) [facility] DOSE AOD~same [facility] () laboratory on 2019-04-15 INR Coag (PPP) 2.8~2.3 (no code) [facility] ([id number]) not yet categorized on 2019-04-07 Any Rx 0~0 (no code) [facility], OTC [facility] medications, or [facility] herbal products ([id number]) changes since last visit? Exp date 09/05/2019 (no code) [facility] ([id number]) Lot # [id number] (no code) [facility] ([id number]) NEW COUMADIN 10mg MWF, 5mg (no code) [facility] DOSE aod~same [facility] (52939) laboratory on 2019-04-07 INR Coag (PPP) 2.3~2.4 (no code) [facility] ([id number]) not yet categorized on 2019-03-31 Exp date 09/05/2019 (no code) [facility] ([id number]) Lot # [id number] (no code) [facility] ([id number]) NEW COUMADIN 10 mg MWF,7.5 (no code) [facility]SE Th,5mg [facility] Tu,S,Min~Hold x 2 [facility] days and recheck (35876) laboratory on 2019-03-31 INR Coag (PPP) 7.0~2.8 (no code) [facility] (85507) not yet categorized on 2019-03-25 Exp date 09/05/2019 (no code) [facility] ([id number]) Lot # [id number] (no code) [facility] ([id number]) laboratory on 2019-03-25 INR Coag (PPP) 2.8~2.2 (no code) [facility]] [facility] ([id number]) not yet categorized on 2019-03-18 Any Rx 0~0 (no code) [facility] OTC [facility] medications, or [facility] herbal products (21031) changes since last visit? Exp date 09/05/2019 (no code) [facility] ([id number]) Lot # [id number] (no code) [facility] ([id number]) NEW COUMADIN 10 mg mwf, 7.5mg (no code) [facility] DOSE th, 5mg AOD~same [facility] ([id number]) laboratory on 2019-03-18 INR Coag (PPP) 2.2~2.3 (no code) [facility]] [facility] (28665) not yet categorized on 2019-03-10 Exp date 09-05-19 (no code) [facility] ([id number]) Lot # [id number] (no code) [facility] ([id number]) laboratory on 2019-03-10 INR Coag (PPP) 2.3~2.0 (no code) [facility]] [facility] (29737) not yet categorized on 2019-03-04 Any Rx 0~0 (no code) [facility] medications, or [facility] herbal products (05857) changes since last visit? Exp date 09/05/2019 (no code) [facility] ([id number]) Lot # [id number] (no code) [facility] ([id number]) NEW COUMADIN 10 mg mwf, 7.5 (no code) [facility]SE mg Th, 5 mg [facility] AOD~same [facility] (99772) laboratory on 2019-03-04 INR Coag (PPP) 2.0~1.6 (no code) [facility]] [facility] (96653) not yet categorized on 2019-02-25 Any Rx 0~0 (no code) [facility] medications, or [facility] herbal products (65557) changes since last visit? Exp date 09/05/2019 (no code) [facility] ([id number]) Lot # [id number] (no code) [facility] ([id number]) NEW COUMADIN 10mg MWF, 5mg (no code) [facility] DOSE AOD~10 mg MWF, [facility] 7.5 mg Th, 5mg [facility] AOD ([id number]) laboratory on 2019-02-25 INR Coag (PPP) 1.6~1.6 (no code) [facility]] [facility] () not yet categorized on 2019-02-19 Any Rx 0~0 (no code) [facility] medications, or [facility] herbal products (59133) changes since last visit? Exp date 09/05/2019 (no code) [facility] ([id number]) Lot # [id number] (no code) [facility] ([id number]) NEW COUMADIN 10mg MF, 5mg (no code) [facility] DOSE AOD~10mg MWF, [facility] 5mg AOD [facility] (93575) laboratory on 2019-02-19 INR Coag (PPP) 1.6~1.4 (no code) [facility]] [facility] (87720) not yet categorized on 2019-02-11 Any Rx 0 (no code) [facility], OTC [facility] medications, or [facility] herbal products (51698) changes since last visit? Lot # [id number] (no code) [facility] ([id number]) Missed doses of 09/05/2019~missed (no code) [facility] in last sunday [facility] the last 5-7 [facility] days? ([id number]) NEW COUMADIN 10 mg m,f; 5 mg (no code) [facility] DOSE AOD~same [facility] (51072) laboratory on 2019-02-11 INR Coag (PPP) 1.4~3.5 (no code) [facility]] [facility] (50558) not yet categorized on 2019-02-07 Any Rx 0~0 (no code) [facility], OTC [place] [facility] medications, or [facility] herbal products (86201) changes since last visit? Exp date 09/05/2019 (no code) [facility] (80153) Lot # [id number] (no code) [facility] (32865) NEW COUMADIN 10mg mwf 5mg (no code) [facility] DOSE aod~10mg mf, 5 [facility] mg aod [facility] (74793) laboratory on 2019-02-07 INR Coag (PPP) 3.5~1.8 (no code) [facility] ([id number]) not yet categorized on 2019-01-22 Any Rx 0~0 (no code) [facility]TC [facility] medications, or [facility] herbal products (44360) changes since last visit? Exp date 07/06/19 (no code) [facility] ([id number]) Lot # [id number] (no code) [facility] (88804) NEW COUMADIN 10 mg MF, 5 mg (no code) [facility]SE on AOD~10 mg MF, [facility] 5 mg on AOD [facility] (90380) laboratory on 2019-01-22 INR Coag (PPP) 2.7~2.2 (no code) [facility]] [facility] (74054) not yet categorized on 2019-01-15 Any Rx 0~0 (no code) [facility] medications, or [facility] herbal products (63738) changes since last visit? Exp date 07/06/19 (no code) [facility] ([id number]) Lot # [id number] (no code) [facility] (90901) NEW COUMADIN 10 mg of M, 5 mg (no code) [facility] DOSE on AOD~10 mg of [facility] M, 5 mg on AOD [facility] (86013) laboratory on 2019-01-15 INR Coag (PPP) 2.2~2.0 (no code) [facility] [place] (83602) not yet categorized on 2019-01-01 Any Rx 07/06/19~none~non (no code) [facility], OTC e [facility] medications, or [facility] herbal products (20494) changes since last visit? Lot # [id number] (no code) [facility] (89139) NEW COUMADIN 10 mg M, 5 mg on (no code) [facility] DOSE AOD~10 mg M, 5 [facility] mg on AOD [facility] (96391) laboratory on 2019-01-01 INR Coag (PPP) 2.6~1.6 (no code) [facility] [Relative time] [facility] (52711) not yet categorized on 2018-12-19 Any Rx 07/06/19~none~non (no code) [facility], OTC e [facility] medications, or [facility] herbal products (25206) changes since last visit? Lot # [id number] (no code) [facility] [place] (96367) NEW COUMADIN 10 mg on M, 5 mg (no code) [facility] DOSE on AOD~10 mg on [facility] M, 5 mg on AOD [facility] ([id number]) laboratory on 2018-12-19 Albumin 4.4 g/dL (N) 3.4 - 5.4 g/dL [facility] [Mass/Vol] [facility] (93739) Albumin/Globulin 1.6 {ratio} (N) 1 - 2.5 {ratio} Comm [facility] [Mass ratio] [facility] (67035) ALP [Catalytic 48 U/L (N) 44 - 147 U/L [facility] Health activity/Vol] [facility] (91508) ALT [Catalytic 15 U/L (N) 4 - 40 U/L [facility] ealth activity/Vol] [facility] (53518) AST [Catalytic 15 U/L (N) 10 - 34 U/L [facility] Health activity/Vol] [facility] ([id number]) Basophils (Bld) 0.044 10*3/uL (N) 0 - 0.3 10*3/uL [facility] Health [#/Vol] [facility] (28771) Basophils/100 0.5 % (N) 0.5 - 1 % [facility] WBC (Bld) [facility] (58613) Bilirubin 0.6 mg/dL (N) 0.1 - 1.2 mg/dL [facility] [Mass/Vol] [facility] (79967) Calcium 9.3 mg/dL (N) 8.5 - 10.2 mg/dL [facility] [Mass/Vol] [facility] (77469) Chloride 107 mmol/L (N) 95 - 106 mmol/L [facility] [Moles/Vol] [facility] (13627) Cholesterol 247 mg/dL (H) 180 - 200 mg/dL [facility] [Mass/Vol] [facility] (43617) Cholesterol in 39 mg/dL (L) [facility] h HDL [Mass/Vol] [facility] (77537) Cholesterol in 177 mg/dL (H) 0 - 100 mg/dL [facility] LDL [Mass/Vol] [facility] (44207) Cholesterol non 208 mg/dL (H) [facility] HDL [Mass/Vol] [facility] (07303) Cholesterol.tota 6.3 {ratio} (H) [facility] HDL [Mass ratio] [facility] () CO2 [Moles/Vol] 22 mmol/L (N) 23 - 29 mmol/L [facility] (67555) Creatinine 1.66 mg/dL (H) [facility] h [Mass/Vol] [facility] (25597) Eosinophils 0.131 10*3/uL (N) 0.05 - 0.5 [facility] (Bld) [#/Vol] 10*3/uL [facility] (15469) Eosinophils/100 1.5 % (N) 1 - 4 % [facility] Health WBC (Bld) [facility] (60996) Erythrocyte 13.9 % (N) 11.6 - 14.6 % [facility] ealth distribution [facility] width (RBC) [facility] [Ratio] (13092) Free T4 1.2 ng/dL (N) 0.9 - 2.2 ng/dL [facility] [Mass/Vol] [facility] (94367) GFR/1.73 sq M 56 (L) 90 - 120 [facility] He alth predicted among mL/min/{1.73_m2} mL/min/{1.73_m2} Center o [facility] blacks MDRD [facility] (S/P/Bld) [Vol (74180) rate/Area] GFR/1.73 sq 48 (L) 90 - 120 [facility] th M.predicted MDRD mL/min/{1.73_m2} mL/min/{1.73_m2} [facility] (S/P/Bld) [Vol [facility] rate/Area] (24483) Globulin (S) 2.7 g/dL (N) 2 - 3.5 g/dL [facility] [Mass/Vol] [facility] (39490) Glucose 91 mg/dL (N) 60 - 125 mg/dL [facility] [Mass/Vol] [facility] (68099) Hematocrit (Bld) 45.0 % (N) 36.1 - 50.3 % [facility] [Volume [facility]] [facility] (12936) Hemoglobin (Bld) 15.2 g/dL (N) 12.1 - 17.2 g/dL [facility] [Mass/Vol] [facility] (58653) INR Coag (PPP) 1.9~3.2 (no code) [facility] h [Relative time] [facility] (09999) Lymphocytes 3.002 10*3/uL (N) 0.9 - 2.9 [facility] He alth (Bld) [#/Vol] 10*3/uL [facility] (84468) Lymphocytes/100 34.5 % (N) 20 - 40 % [facility] WBC (Bld) [facility] (50218) MCH (RBC) 27.8 pg (N) 27 - 31 pg [facility] [Entitic mass] [facility] (53071) MCHC (RBC) 33.8 g/dL (N) 32 - 36 g/dL [facility] He alth [Mass/Vol] [facility] (88773) MCV (RBC) 82.4 fL (N) 80 - 100 fL [facility] lth [Entitic vol] [facility] (25926) Monocytes (Bld) 0.713 10*3/uL (N) 0.3 - 0.9 [facility] Health [#/Vol] 10*3/uL [facility] (16658) Monocytes/100 8.2 % (N) 2 - 8 % [facility] alth WBC (Bld) [facility] (30790) Neutrophils 4.811 10*3/uL (N) 1.7 - 7 10*3/uL [facility] (Bld) [#/Vol] [facility] (52441) Neutrophils/100 55.3 % (N) 40 - 60 % [facility] WBC (Bld) [facility] (85120) Platelet mean 10.0 fL (N) 7.2 - 11.7 fL [facility] volume (Bld) [facility] [Entitic vol] [facility] (41416) Platelets (Bld) 308 10*3/uL (N) 150 - 450 [facility] [#/Vol] 10*3/uL [facility] (36630) Potassium 4.2 mmol/L (N) 3.7 - 5.2 mmol/L [facility] [Moles/Vol] [facility] (76105) Protein 7.1 g/dL (N) 6.4 - 8.3 g/dL [facility] [Mass/Vol] [facility] (50404) RBC (Bld) 5.46 10*6/uL (N) 4.2 - 6.1 [facility] lth [#/Vol] 10*6/uL [facility] (38159) Sodium 142 mmol/L (N) 135 - 145 mmol/L [facility] [Moles/Vol] [facility] (62046) Triglyceride 162 mg/dL (H) 0 - 150 mg/dL [facility] [Mass/Vol] [facility] (47388) TSH Qn 5.23 m[IU]/L (H) 0.4 - 4 m[IU]/L [facility] (02959) Urea nitrogen 17 mg/dL (N) 7 - 20 mg/dL [facility] [Mass/Vol] [facility] (96676) Urea 10 mg/mg (N) 6 - 22 mg/mg [facility] He alth nitrogen/Creatin [facility] [Mass ratio] [facility] (67983) WBC (Bld) 8.7 10*3/uL (N) 3.5 - 10.5 [facility] [#/Vol] 10*3/uL [facility] (42318) not yet categorized on 2018-12-12 Lot # [id number] (no code) [facility] (51558) Missed doses of 07/06/19~none (no code) [facility] medication in [facility] the last 5-7 [facility] days? (45607) NEW COUMADIN 10 mg on MF, 5 (no code) [facility] DOSE mg AOD~10 mg on [facility] M, 5 mg on AOD [facility] (57796) laboratory on 2018-12-12 INR Coag (PPP) 3.2~3.3 (no code) [facility] [Relative time] [facility] (79623) not yet categorized on 2018-11-27 Lot # [id number] (no code) [facility] (17582) Missed doses of 07/06/19~none (no code) [facility] medication in [facility] the last 5-7 [facility] days? (55155) NEW COUMADIN 10 mg on MWF, 5 (no code) [facility] DOSE on AOD~10 mg on [facility] MF, 5 mg on all [facility] other days (27531) laboratory on 2018-11-27 INR Coag (PPP) 3.3~2.2 (no code) [facility] [Relative time] [facility] (75935) not yet categorized on 2018-11-06 Lot # [id number] (no code) [facility] (47697) Missed doses of 07/06/19~has not (no code) [facility] medication in taken todays [facility] the last 5-7 dose [facility] days? (43947) NEW COUMADIN 10 mg MWF, 5 mg (no code) [facility] DOSE AOD~same [facility] (49938) laboratory on 2018-11-06 INR Coag (PPP) 1.8~2.0 (no code) [facility] [Relative time] [facility] (23734) not yet categorized on 2018-11-01 Exp date 07/06/19 (no code) [facility] (07908) Lot # [id number] (no code) [facility] (87064) laboratory on 2018-11-01 INR Coag (PPP) 2.0~1.8 (no code) [facility] [Relative time] [facility] (37698) not yet categorized on 2018-10-30 COMMENT no information (no code) [facility] (43232) Lot # [id number] (no code) [facility] (67807) Missed doses of 07/06/19~today (no code) [facility] medication in dose not taken [facility] the last 5-7 [facility] days? (03846) NEW COUMADIN 10 mg mwf 5mg (no code) [facility] DOSE AOD~same [facility] (91564) Prescribed Drug Hydrocodone (no code) [facility] 1 [facility] (39044) laboratory on 2018-10-30 Amphetamines Ql Negative (N) [facility] (U) [facility] (66772) Barbiturates Ql Negative (N) [facility] (U) [facility] (17357) Benzodiazepines Negative (N) [facility] Ql (U) [facility] (06247) Benzoylecgonine Negative (N) [facility] Ql (U) [facility] (10414) Codeine (U) Negative (N) [facility] [Mass/Vol] [facility] (44178) Creatinine (U) 225.7 mg/dL (N) [facility] (85298) Drug screen CONSISTENT (N) [facility] comment (U) [facility] [Interp] [facility] () Hydrocodone (U) 4125 (H) [facility] [Mass/Vol] [facility] (43874) Hydromorphone 1076 (H) [facility] (U) [Mass/Vol] [facility] () INR Coag (PPP) 1.8~2.1 (no code) [facility] () Methadone Ql (U) Negative (N) [facility] Morphine (U) Negative (N) [facility] [[facility] (22730) Norhydrocodone 4921 (H) [facility] Confirm (U) [facility] [Mass/Vol] [facility] () Opiates Ql (U) Positive (A) [facility] (23178) Oxidants Ql (U) Negative (N) [facility] (89208) Oxycodone Ql (U) Negative (N) [facility] (55684[facility] pH (U) 7.8 [pH] (N) 4.6 - 8 [pH] [facility] (21304) Phencyclidine Ql Negative (N) [facility] (U) [facility] (73008) Tetrahydrocannab Negative (N) Community [facility] lt inol Ql (U) [facility] (52065) not yet categorized on 2018-10-23 Exp date 07/06/19 (no code) [facility] () Lot # [id number] (no code) [facility] (71924) laboratory on 2018-10-23 INR Coag (PPP) 2.1~4.1 (no code) [facility] [Relative time] [facility] (56662) not yet categorized on 2018-10-09 Exp date 07/06/19 (no code) [facility] (54341) Lot # [id number] (no code) [facility] (15079) laboratory on 2018-10-09 INR Coag (PPP) 1.9~2.2 (no code) [facility] [Relative time] [facility] (35815) not yet categorized on 2018-10-02 Exp date 07/06/19 (no code) [facility] (67389) Lot # [id number] (no code) [facility] (38248) laboratory on 2018-10-02 INR Coag (PPP) 1.8~2.5 (no code) [facility] [Relative time] [facility] (62812) not yet categorized on 2018-09-25 Exp date 07/06/19 (no code) [facility] (20869) Lot # [id number] (no code) [facility] (37861) laboratory on 2018-09-25 INR Coag (PPP) 2.5~2.4 (no code) [facility] [Relative time] [facility] (06941) not yet categorized on 2018-09-20 Exp date 07/05/19 (no code) [facility] (52680) Lot # [id number] (no code) [facility] (69327) NEW COUMADIN 10 mg mf, 5 mg (no code) [facility] DOSE AOD~10 mg mf, 5 [facility] mg AOD [facility] (82071) laboratory on 2018-09-20 INR Coag (PPP) 2.4~1.8 (no code) [facility] [Relative time] [facility] (91924) not yet categorized on 2018-09-16 Exp date 07/05/2019 (no code) [facility] (20314) Lot # [id number] (no code) [facility] (07189) NEW COUMADIN 10mg mf 5mg (no code) [facility] DOSE aod~10 mf 7.5 [facility] 5 aod [facility] (14064) laboratory on 2018-09-16 INR Coag (PPP) 1.8~3.3 (no code) [facility] [Relative time] [facility] (01263) not yet categorized on 2018-09-09 Exp date 07/05/19 (no code) [facility] (46560) Lot # [id number] (no code) [facility] (81386) laboratory on 2018-09-09 INR Coag (PPP) 3.0~3.3 (no code) [facility] [Relative time] [facility] (74295) not yet categorized on 2018-09-04 Exp date 07/06/19 (no code) [facility] (00428) Lot # [id number] (no code) [facility] (30162) NEW COUMADIN 10 mg on MF, 5 (no code) [facility] DOSE mg AOD~10 mg on [facility], 5 mg on AOD [facility] (39486) laboratory on 2018-09-04 INR Coag (PPP) 3.3~2.0 (no code) [facility] [Relative time] [facility] (66308) not yet categorized on 2018-09-03 Exp date 07/06/19 (no code) [facility] (47295) Lot # [id number] (no code) [facility] (95906) laboratory on 2018-09-03 INR Coag (PPP) 2.0~2.2 (no code) [facility] [Relative time] [facility] (97087) not yet categorized on 2018-08-23 Exp date 07/06/19 (no code) [facility] (56048) Lot # [id number] (no code) [facility] (61576) laboratory on 2018-08-23 INR Coag (PPP) 2.2~3.3 (no code) [facility] [Relative time] [facility] (93337) not yet categorized on 2018-08-16 Exp date 07/06/19 (no code) [facility] (52404) Lot # [id number] (no code) [facility] (06749) laboratory on 2018-08-16 INR Coag (PPP) 3.3~2.6 (no code) [facility] [Relative time] [facility] (78623) not yet categorized on 2018-08-09 Exp date 07/06/2019 (no code) [facility] (12434) Lot # [id number] (no code) [facility] (69932) laboratory on 2018-08-09 INR Coag (PPP) 2.6~1.9 (no code) [facility] [Relative time] [facility] (80410) not yet categorized on 2018-08-05 Exp date 07/06/2019 (no code) [facility] (11403) Lot # [id number] (no code) [facility] (92800) laboratory on 2018-08-05 INR Coag (PPP) 1.9~2.5 (no code) [facility] ([id number]) not yet categorized on 2018-07-29 Exp date 07/06/19 (no code) [facility] ([id number]) Lot # [id number] (no code) [facility] ([id number]) laboratory on 2018-07-29 INR Coag (PPP) 2.5~1.9 (no code) [facility] ([id number]) not yet categorized on 2018-07-24 Exp date 07/06/19 (no code) [facility] ([id number]) Lot # [id number] (no code) [facility] ([id number]) laboratory on 2018-07-24 INR Coag (PPP) 1.9~1.8 (no code) [facility] ([id number]) not yet categorized on 2018-07-19 Exp date 07/06/2019 (no code) [facility] ([id number]) Lot # [id number] (no code) [facility] ([id number]) NEW COUMADIN 10 mg on (no code) [facility]SE Sunday and Sunday, 5 mg [place] on all other ([id number]) days~10 mg on , , and 5 mg all other days laboratory on 2018-07-19 INR Coag (PPP) 1.8~2.4 (no code) [facility] ([id number]) not yet categorized on 2018-07-12 Exp date 07/06/19 (no code) [facility] ([id number]) Lot # [id number] (no code) [facility] ([id number]) laboratory on 2018-07-12 INR Coag (PPP) 2.0~2.4 (no code) [facility] ([id number]) other on 2018-06-26 Exp date 07/06/19 (no code) [facility] ([id number]) Lot # [id number] (no code) [facility] ([id number]) hematology on 2018-06-26 INR Coag (PPP) 2.3~2.1 (no code) [facility] ([id number]) other on 2018-06-22 Exp date 07/06/2019 (no code) [facility] ([id number]) Lot # [id number] (no code) [facility] ([id number]) NEW COUMADIN 10mg on W,Sa, (no code) [facility] 5mg all other [facility] days~10mg on [facility] W,Sa, 5mg all ([id number]) other days hematology on 2018-06-22 INR Coag (PPP) 2.1~4.4 (no code) [facility] ([id number]) hematology on 2018-06-12 INR Coag (PPP) 2.7~1.6 (no code) [facility] ([id number]) other on 2018-06-05 Exp date 07/06/2019 (no code) [facility] ([id number]) Lot # [id number] (no code) [facility] ([id number]) NEW COUMADIN 10mg on M,W,F, (no code) [facility]SE 5mg all other [facility] days~10mg on [facility] Min,T,Th,Sa, 5mg ([id number]) all other days hematology on 2018-06-05 INR Coag (PPP) 1.6~1.9 (no code) [facility] ([id number]) other on 2018-05-29 Exp date 07/06/2019 (no code) [facility] ([id number]) Lot # [id number] (no code) [facility] ([id number]) hematology on 2018-05-29 INR Coag (PPP) 1.9~2.5 (no code) [facility] ([id number]) other on 2018-05-22 Exp date 05/06/2019 (no code) [facility] ([id number]) Lot # [id number] (no code) [facility] ([id number]) hematology on 2018-05-22 INR Coag (PPP) 2.5~2.3 (no code) [facility]] [facility] ([id number]) other on 2018-05-08 Exp date 05/06/19 (no code) [facility] ([id number]) Lot # [id number] (no code) [facility] ([id number]) hematology on 2018-05-08 INR Coag (PPP) 2.0~1.7 (no code) [facility]Relative [facility]] [facility] ([id number]) inr (in house) on 2018-05-01 INR Coag (PPP) 1.7 {INR} (no code) 0.9 - 1.1 {INR} 05-01-2018 [facility] [Relative time] 08:00-0400 [facility] ([id number]) INR Coag (PPP) 2.1 {INR} (no code) 0.9 - 1.1 {INR} 05-01-2018 [facility] [Relative time] 08:00-0400 [facility] ([id number]) INR (IN HOUSE) 10 mg on Wed and (no code) 05-01-2018 [facility] Sunday, 5 mg 08:00-0400 Center of on all other day [facility] ([id number]) INR (IN HOUSE) 10 mg on Wed and (no code) 05-01-2018 [facility] Sat, 5 mg on all 08:00-0400 Center of other days [facility] ([id number]) INR (IN HOUSE) [id number] (no code) 05-01-2018 [facility] 08:00-0400 [facility] ([id number]) INR (IN HOUSE) 05/06/19 (no code) 05-01-2018 [facility] 08:00-0400 [facility] ([id number]) other on 2018-04-18 Exp date 07/06/19 (no code) [facility] ([id number]) Lot # [id number] (no code) [facility] ([id number]) NEW COUMADIN 10 mg on Wed, (no code) [facility] Sat; 5 mg on all Center [facility] other days~10 mg [place] on Wed, Sat; 5 ([id number]) mg on all other days hematology on 2018-04-18 INR Coag (PPP) 2.1~2.0 (no code) [facility]] [facility] ([id number]) not yet categorized on 2018-04-10 Exp date 07/06/2019 (no code) [facility] ([id number]) Lot # [id number] (no code) [facility] ([id number]) NEW COUMADIN 5mg S,T,W,F,Sa, (no code) [facility] DOSE 10mg all oher [facility] S,T,W,F,Sa, 10mg ([id number]) all other days laboratory on 2018-04-10 INR Coag (PPP) 2.0~3.6 (no code) [facility]Relative [facility]] [facility] ([id number]) inr (in house) on 2018-04-10 INR Coag (PPP) 2.0 {INR} (no code) 0.9 - 1.1 {INR} 04-10-2018 [facility] [Relative time] 13:00-0500 [facility] () INR Coag (PPP) 3.6 {INR} (no code) 0.9 - 1.1 {INR} 04-10-2018 [facility] [Relative time] 13:00-0500 [facility] ([id number]) INR Coag (PPP) 5mg S,T,W,F,Sa, (no code) 04-10-2018 [facility] [Relative time] 10mg all oher 13:00-0500 Center of days [facility] ([id number]) INR Coag (PPP) 5mg S,T,W,F,Sa, (no code) 04-10-2018 [facility] [Relative time] 10mg all other 13:00-0500 Center of [facility] ([id number]) INR Coag (PPP) [id number] {INR} (no code) 0.9 - 1.1 {INR} 04-11-19 19 [facility] [Relative time] 13:00-0500 [facility] ([id number]) INR Coag (PPP) 07/06/2019 (no code) 04-10-2018 [facility] [Relative time] 13:00-0500 [facility] ([id number]) not yet categorized on 2018-04-05 Exp date [id number]~05 (no code) [facility] ([id number]) NEW COUMADIN 5mg (no code) [facility] Healt h DOSE onM,T,Th,F,10mg [facility] day~5mg ([id number]) S,T,W,F,S, 10mg all other days laboratory on 2018-04-05 INR Coag (PPP) 3.6~2.4 (no code) [facility]alt h [Relative time] [facility] ([id number]) Vital Signs The data below is from unstructured sources Vital Reading Result Col lection Date/Time Interventions No Information Plan of Treatment Normalized Care Care Detail Care Activity Date Care Provider F acility Activity Patient Education Constipation, Adult no information BREANNE FREEDMAN [id number] ([place]) [facility] ([id number]) Patient encounter [facility] 05-30-2019 [facility]CH [id number]) Patient referral no information no information BREANNE SANABRIA [phone] [facility] ([id number]) Goals Patient Goal Desired Goal no information no information Social History Normalized Code Original Code Date Value no information no information no information Unknown if ever smoked no information no information 12-06-2018 Denies Use no information no information 12-05-2006 No no information no information 12-06-2018 Denies Sex Assigned At Sex Assigned At no information M luis Functional Status The data below is from unstructured sourcesNo Functional Status information available Mental Status The data below is from unstructured sourcesNo Mental Status Information Available Encounters Encounter Normalized Encounter Encounter Diagnosis Care Provi yesenia Organization Date Type 03-21-2018 (ACUTE) Acute Visit Impacted MARK bean (no [facility]) MARK AlcalaER phone) 03-21-2018 (no phone) - 03-21-2018 02-28-2018 ([facility]) Chronic Health Dorsalgia, unspecified MARCO ANTONIOCANDELARIO Helen PARRISH (no [facility] (no - Maintenance phone) JAIMA zzBECKER phone) 02-28-2018 (no phone) - 02-28-2018 02-07-2018 ([facility]) Establish Care Dorsalgia, unspecified JAIMA ARNOLD (no [facility] (no - phone) JAIMA zzBECKER phone) 02-07-2018 (no phone) - 02-07-2018 02-04-2018 [facility] no information Doctor Migrati on (no [facility] - phone) (no phone) 02-04-2018 - 02-04-2018 01-04-2018 [facility] no information Doctor Migrati on (no [facility] - phone) (no phone) 01-04-2018 - 01-04-2018 01-03-2018 [facility] no information Doctor Migrati on (no [facility] - phone) (no phone) 01-03-2018 - 01-03-2018 12-05-2017 [facility] no information Doctor Migrati on (no [facility] - phone) (no phone) 12-05-2017 - 12-05-2017 06-23-2019 [facility] no information GROVER BUNCH (no [facility] (no phone) phone) 02-11-2019 [facility] Tinea unguium GROVER YOUNG (no [facility] (no phone) phone) 01-06-2019 [facility] no information GROVER YOUNG (no [facility] (no phone) phone) 01-01-2019 [facility] Mixed hyperlipidemia GROVER EVI G (no [facility] (no phone) phone) 01-01-2019 [facility] no information GROVER YOUNG (no [facility] (no phone) phone) 12-12-2018 [facility] Unspecified atrial ROSANNE JESSE N (no [facility] (no fibrillation phone) phone) 08-09-2018 [facility] Unspecified atrial JAIMA ARNOLD ( no [facility] (no fibrillation phone) JAIMA zzBECKER phone) (no phone) 08-05-2018 [facility] Unspecified atrial EDUAR KELLSTA DT (no [facility] (no fibrillation phone) phone) 05-08-2018 [facility] Difficulty in walking, MARK VILLEGAS ER (no [facility] (no not elsewhere phone) JAIMA zzBECKER phone) classified (no phone) 04-15-2019 Consultation for Unspecified atrial GROVER YOUNG ( no [facility] (no laboratory medicine fibrillation phone) phone) 04-07-2019 Consultation for Unspecified atrial GROVER YOUNG ( no [facility] (no laboratory medicine fibrillation phone) phone) 04-02-2019 Consultation for Unspecified atrial GROVER YOUNG ( no [facility] (no laboratory medicine fibrillation phone) phone) 03-31-2019 Consultation for Unspecified atrial GROVER YOUNG ( no [facility] (no laboratory medicine fibrillation phone) phone) 03-25-2019 Consultation for Unspecified atrial GROVER YOUNG ( no [facility] (no laboratory medicine fibrillation phone) phone) 03-18-2019 Consultation for long-term (current) GROVER YOUNG (no [facility] (no laboratory medicine use of 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s phone) jeannette ne) 03-10-2019 Consultation for Unspecified atrial GROVER YOUNG ( no [facility] (no laboratory medicine fibrillation phone) phone) 03-04-2019 Consultation for Unspecified atrial GROVER YOUNG ( no [facility] (no laboratory medicine fibrillation phone) phone) 02-25-2019 Consultation for Unspecified atrial GROVER YOUNG ( no [facility] (no laboratory medicine fibrillation phone) phone) 02-19-2019 Consultation for Unspecified atrial GROVER YOUNG ( no [facility] (no laboratory medicine fibrillation phone) phone) 02-11-2019 Consultation for Unspecified atrial GROVER YOUNG ( no [facility] (no laboratory medicine fibrillation phone) phone) 02-07-2019 Consultation for Unspecified atrial GROVER YOUNG ( no [facility] (no laboratory medicine fibrillation phone) phone) 01-30-2019 Consultation for Unspecified atrial GROVER YOUNG ( no [facility] (no laboratory medicine fibrillation phone) phone) 01-22-2019 Consultation for Unspecified atrial GROVER YOUNG ( no [facility] (no laboratory medicine fibrillation phone) phone) 01-15-2019 Consultation for Unspecified atrial GROVER YOUNG ( no [facility] (no laboratory medicine fibrillation phone) phone) 01-06-2019 Consultation for Unspecified atrial GROVER YOUNG ( no [facility] (no laboratory medicine fibrillation phone) phone) 12-26-2018 Consultation for Unspecified atrial GROVER YOUNG ( no [facility] (no laboratory medicine fibrillation phone) phone) 12-19-2018 Consultation for Unspecified atrial GROVER YOUNG ( no [facility] (no laboratory medicine fibrillation phone) phone) 11-27-2018 Consultation for Unspecified atrial ROSANNE LUISA (no [facility] (no laboratory medicine fibrillation phone) phone) 11-15-2018 Consultation for Unspecified atrial GROVER YOUNG ( no [facility] (no laboratory medicine fibrillation phone) phone) 11-12-2018 Consultation for Unspecified atrial JAIMA ARNOLD (n o [facility] (no laboratory medicine fibrillation phone) JAIMA zzBECKER jeannette ne) (no phone) 11-06-2018 Consultation for Unspecified atrial EDUAR KELLSTAD T (no [facility] (no laboratory medicine fibrillation phone) phone) 11-01-2018 Consultation for Unspecified atrial JAIMA ARNOLD (n o [facility] (no laboratory medicine fibrillation phone) JAIMA zzBECKER jeannette ne) (no phone) 10-30-2018 Consultation for Dorsalgia, unspecified GROVER YOU NG (no [facility] (no laboratory medicine phone) phone) 10-14-2018 Consultation for Unspecified atrial JAIMA ARNOLD (n o [facility] (no laboratory medicine fibrillation phone) JAIMA zzBECKER jeannette ne) (no phone) 10-09-2018 Consultation for Unspecified atrial JAIMA ARNOLD (n o [facility] (no laboratory medicine fibrillation phone) JAIMA zzBECKER jeannette ne) (no phone) 10-02-2018 Consultation for Unspecified atrial JAIMA ARNOLD (n o [facility] (no laboratory medicine fibrillation phone) JAIMA zzBECKER jeannette ne) (no phone) 09-25-2018 Consultation for Unspecified atrial JAIMA ARNOLD (n o [facility] (no laboratory medicine fibrillation phone) JAIMA zzBECKER jeannette ne) (no phone) 09-20-2018 Consultation for Unspecified atrial EDUAR KELLSTAD T (no [facility] (no laboratory medicine fibrillation phone) phone) 09-16-2018 Consultation for Unspecified atrial JAIMA ARNOLD (n o [facility] (no laboratory medicine fibrillation phone) JAIMA zzBECKER jeannette ne) (no phone) 09-12-2018 Consultation for Unspecified atrial JAIMA ARNOLD (n o [facility] (no laboratory medicine fibrillation phone) JAIMA zzBECKER jeannette ne) (no phone) 09-04-2018 Consultation for Unspecified atrial GROVER YOUNG ( no [facility] (no laboratory medicine fibrillation phone) phone) 08-16-2018 Consultation for Unspecified atrial JAIMA ARNOLD (n o [facility] (no laboratory medicine fibrillation phone) JAIMA zzBECKER jeannette ne) (no phone) 07-29-2018 Consultation for Unspecified atrial EDUAR KELLSTAD T (no [facility] (no laboratory medicine fibrillation phone) phone) 07-19-2018 Consultation for Unspecified atrial EDUAR KELLSTAD T (no [facility] (no laboratory medicine fibrillation phone) phone) 07-12-2018 Consultation for Unspecified atrial JAIMA ARNOLD (n o [facility] (no laboratory medicine fibrillation phone) JAIMA zzBECKER jeannette ne) (no phone) 07-05-2018 Consultation for Unspecified atrial EDUAR KELLSTAD T (no [facility] (no laboratory medicine fibrillation phone) phone) 06-26-2018 Consultation for Unspecified atrial GROVER YOUNG ( no [facility] (no laboratory medicine fibrillation phone) phone) 06-22-2018 Consultation for Unspecified atrial GROVER YOUNG ( no [facility] (no laboratory medicine fibrillation phone) phone) 06-19-2018 Consultation for Unspecified atrial JAIMA ARNOLD (n o [facility] (no laboratory medicine fibrillation phone) JAIMA zzBECKER jeannette ne) (no phone) 06-05-2018 Consultation for Unspecified atrial GROVER YOUNG ( no [facility] (no laboratory medicine fibrillation phone) phone) 05-29-2018 Consultation for Unspecified atrial EDUAR KELLSTAD T (no [facility] (no laboratory medicine fibrillation phone) phone) 05-22-2018 Consultation for Unspecified atrial GROVER YOUNG ( no [facility] (no laboratory medicine fibrillation phone) phone) 05-01-2018 Consultation for Unspecified atrial GROVER YOUNG ( no [facility] (no laboratory medicine fibrillation phone) phone) 04-25-2018 Consultation for Unspecified atrial GROVER YOUNG ( no [facility] (no - laboratory medicine fibrillation phone) phone ) 04-25-2018 - 04-25-2018 04-10-2018 Consultation for Unspecified atrial ROSANNE MORAN (no [facility] (no - laboratory medicine fibrillation phone) phone ) 04-10-2018 - 04-10-2018 04-05-2018 Consultation for Unspecified atrial GROVER YOUNG ( no [facility] (no - laboratory medicine fibrillation phone) phone ) 04-05-2018 - 04-05-2018 03-28-2018 Consultation for Unspecified atrial GROVER YOUNG ( no [facility] (no - laboratory medicine fibrillation phone) phone ) 03-28-2018 - 03-28-2018 03-13-2018 Consultation for Unspecified atrial GROVER YOUNG ( no [facility] (no - laboratory medicine fibrillation phone) phone ) 03-13-2018 - 03-13-2018 03-05-2018 Consultation for Unspecified atrial ROSANNE MORAN (no [facility] (no - laboratory medicine fibrillation phone) phone ) 03-05-2018 - 03-05-2018 02-26-2018 Consultation for Unspecified atrial GROVER YOUNG ( no [facility] (no - laboratory medicine fibrillation phone) phone ) 02-26-2018 - 02-26-2018 02-19-2018 Consultation for Unspecified atrial MARCO ANTONIOCANDELARIO CATALINA (n o [facility] (no - laboratory medicine fibrillation phone) MARK Lawton KER phone) 02-19-2018 (no phone) - 02-19-2018 02-11-2018 Consultation for Unspecified atrial ROSANNE MORAN (no [facility] (no - laboratory medicine fibrillation phone) phone ) 02-11-2018 - 02-11-2018 12-06-2018 Emergency department no information (no phone) As cension [facility] - patient visit Hospital (no phone) 12-06-2018 12-06-2018 Emergency department no information no name no organization name - patient visit 12-06-2018 01-06-2019 Nursing evaluation of Impacted cerumen, GROVER YOU NG (no [facility] (no patient and report bilateral phone) phone) 11-20-2018 Nursing evaluation of Impacted cerumen, GROVER YOU NG (no [facility] (no patient and report bilateral phone) phone) 10-23-2018 Nursing evaluation of Unspecified atrial EDUAR KORTNEY LSTADT (no [facility] (no patient and report fibrillation phone) phone) 10-21-2018 Nursing evaluation of no information EDUAR KELLSTA DT (no [facility] (no patient and report phone) phone) 10-04-2018 Nursing evaluation of no information GROVER YOUNG (no [facility] (no patient and report phone) phone) 09-09-2018 Nursing evaluation of Unspecified atrial JAIMA VILLEGAS ER (no [facility] (no patient and report fibrillation phone) JAIMA zzBECKER phon e) (no phone) 08-30-2018 Nursing evaluation of Unspecified atrial JAIMA VILLEGAS ER (no [facility] (no patient and report fibrillation phone) JAIMA zzBECKER phon e) (no phone) 08-23-2018 Nursing evaluation of Unspecified atrial JAIMA VILLEGAS ER (no [facility] (no patient and report fibrillation phone) JAIMA zzBECKER phon e) (no phone) 08-02-2018 Nursing evaluation of no information JAIMA ARNOLD ( no [facility] (no patient and report phone) JAIMA zzBECKER phone) (no phone) 07-24-2018 Nursing evaluation of Unspecified atrial EDUAR KORTNEY LSTADT (no [facility] (no patient and report fibrillation phone) phone) 06-12-2018 Nursing evaluation of Unspecified atrial GROVER YO BENITO (no [facility] (no patient and report fibrillation phone) phone) 05-15-2018 Nursing evaluation of Unspecified atrial GROVER YO BENITO (no [facility] (no patient and report fibrillation phone) phone) 05-08-2018 Nursing evaluation of Unspecified atrial EDUAR KORTNEY LSTADT (no [facility] (no patient and report fibrillation phone) phone) 04-18-2018 Nursing evaluation of Unspecified atrial GROVER YO BENITO (no [facility] (no - patient and report fibrillation phone) phone) 04-18-2018 - 04-18-2018 03-20-2018 Nursing evaluation of Unspecified atrial GROVER OLIVER (no [facility] (no - patient and report fibrillation phone) phone) 03-20-2018 - 03-20-2018 05-31-2019 Patient encounter no information [facility] BUNCH (n o [facility] phone) [facility] (no phone) 04-15-2019 Patient encounter no information (no phone) [facility] Posey [facility] procedure YOUNG (no phone) [facility] (no phone) 04-07-2019 Patient encounter no information GROVER BUNCH (n o [facility] procedure phone) (no phone) [facility] (no phone) 03-31-2019 Patient encounter no information (no phone) [facility] (no phone) 03-25-2019 Patient encounter no information (no phone) [facility] Health procedure [facility] (no phone) 03-18-2019 Patient encounter no information (no phone) [facility] Health procedure [facility] (no phone) 03-10-2019 Patient encounter no information no name no or ganization name procedure 03-04-2019 Patient encounter no information no name no or ganization name procedure 02-25-2019 Patient encounter no information no name no or ganization name procedure 02-19-2019 Patient encounter no information no name no or ganization name procedure 02-11-2019 Patient encounter no information no name no or ganization name procedure 02-07-2019 Patient encounter no information no name no or ganization name procedure 01-30-2019 Patient encounter no information no name no or ganization name procedure 01-22-2019 Patient encounter no information no name no or ganization name procedure 01-15-2019 Patient encounter no information no name no or ganization name procedure 01-01-2019 Patient encounter no information no name no or ganization name procedure 12-26-2018 Patient encounter no information no name no or ganization name procedure 12-19-2018 Patient encounter no information no name no or ganization name procedure 12-12-2018 Patient encounter no information no name no or ganization name procedure 12-06-2018 Patient encounter no information no name no or ganization name procedure 11-27-2018 Patient encounter no information no name no or ganization name procedure 11-20-2018 Patient encounter no information no name no or ganization name procedure 11-15-2018 Patient encounter no information no name no or ganization name procedure 11-12-2018 Patient encounter no information no name no or ganization name procedure 11-06-2018 Patient encounter no information no name no or ganization name procedure 11-01-2018 Patient encounter no information no name no or ganization name procedure 10-30-2018 Patient encounter no information no name no or ganization name procedure 10-23-2018 Patient encounter no information no name no or ganization name procedure 10-21-2018 Patient encounter no information no name no or ganization name procedure 10-09-2018 Patient encounter no information no name no or ganization name procedure 10-04-2018 Patient encounter no information no name no or ganization name procedure 10-02-2018 Patient encounter no information no name no or ganization name procedure 09-25-2018 Patient encounter no information no name no or ganization name procedure 09-20-2018 Patient encounter no information no name no or ganization name procedure 09-20-2018 Patient encounter no information no name no or ganization name procedure 09-16-2018 Patient encounter no information no name no or ganization name procedure 09-16-2018 Patient encounter no information no name no or ganization name procedure 09-12-2018 Patient encounter no information no name no or ganization name procedure 09-09-2018 Patient encounter no information no name no or ganization name procedure 09-04-2018 Patient encounter no information no name no or ganization name procedure 09-04-2018 Patient encounter no information no name no or ganization name procedure 08-30-2018 Patient encounter no information no name no or ganization name procedure 08-23-2018 Patient encounter no information no name no or ganization name procedure 08-16-2018 Patient encounter no information no name no or ganization name procedure 08-09-2018 Patient encounter no information no name no or ganization name procedure 08-05-2018 Patient encounter no information no name no or ganization name procedure 08-02-2018 Patient encounter no information no name no or ganization name procedure 07-29-2018 Patient encounter no information no name no or ganization name procedure 07-29-2018 Patient encounter no information no name no or ganization name procedure 07-24-2018 Patient encounter no information no name no or ganization name procedure 07-19-2018 Patient encounter no information no name no or ganization name procedure 07-19-2018 Patient encounter no information no name no or ganization name procedure 07-12-2018 Patient encounter no information no name no or ganization name procedure 07-05-2018 Patient encounter no information no name no or ganization name procedure 06-26-2018 Patient encounter no information no name no or ganization name procedure 06-22-2018 Patient encounter no information no name no or ganization name procedure 06-12-2018 Patient encounter no information no name no or ganization name procedure 06-05-2018 Patient encounter no information no name no or ganization name procedure 05-29-2018 Patient encounter no information no name no or ganization name procedure 05-22-2018 Patient encounter no information no name no or ganization name procedure 05-15-2018 Patient encounter no information no name no or ganization name procedure 05-08-2018 Patient encounter no information no name no or ganization name procedure 05-01-2018 Patient encounter no information no name no or ganization name procedure 04-25-2018 Patient encounter no information no name no or ganization name procedure 04-25-2018 Patient encounter no information no name no or ganization name procedure 04-18-2018 Patient encounter no information no name no or ganization name procedure 04-10-2018 Patient encounter no information no name no or ganization name procedure 04-05-2018 Patient encounter no information no name no or ganization name procedure 04-05-2018 Patient encounter no information no name no or ganization name procedure 03-28-2018 Patient encounter no information no name no or ganization name procedure 03-21-2018 Patient encounter no information no name no or ganization name procedure 03-20-2018 Patient encounter no information no name no or ganization name procedure 03-13-2018 Patient encounter no information no name no or ganization name procedure 03-05-2018 Patient encounter no information no name no or ganization name procedure 02-28-2018 Patient encounter no information no name no or ganization name procedure 02-26-2018 Patient encounter no information no name no or ganization name procedure 02-19-2018 Patient encounter no information no name no or ganization name procedure 02-11-2018 Patient encounter no information no name no or ganization name procedure 02-07-2018 Patient encounter no information no name no or ganization name procedure 06-21-2019 Telephone encounter no information GROVER BUNCH (n o [facility] phone) (no phone) 06-16-2019 Telephone encounter no information GROVER YOUNG (n o [facility] (no phone) phone) 06-12-2019 Telephone encounter no information GROVER YOUNG (n o [facility] (no phone) phone) 06-11-2019 Telephone encounter Unspecified atrial GROVER EVI G (no [facility] (no fibrillation phone) phone) 06-04-2019 Telephone encounter no information GROVER YOUNG (n o [facility] (no phone) phone) 06-03-2019 Telephone encounter Dorsalgia, unspecified GROVER YOUNG (no [facility] (no phone) phone) 05-31-2019 Telephone encounter Pain in right toe(s) EDUAR KORTNEY LSTADT (no [facility] (no phone) phone) 05-29-2019 Telephone encounter no information GROVER YOUNG (n o [facility] (no phone) phone) 05-26-2019 Telephone encounter no information GROVER YOUNG (n o [facility] (no phone) phone) 05-08-2019 Telephone encounter Dorsalgia, unspecified ROSANNEJESU MORAN (no [facility] phone) (no phone) 04-30-2019 Telephone encounter no information GROVER YOUNG (n o [facility] (no phone) phone) 03-26-2019 Telephone encounter Dorsalgia, unspecified GROVER YOUNG (no [facility] (no phone) phone) 03-25-2019 Telephone encounter Dorsalgia, unspecified GROVER YOUNG (no [facility] phone) (no phone) 03-04-2019 Telephone encounter no information GROVER YOUNG (n o [facility] (no phone) phone) 01-31-2019 Telephone encounter no information GROVER YOUNG (n o [facility] (no phone) phone) 01-30-2019 Telephone encounter no information GROVER YOUNG (n o [facility] (no phone) phone) 01-22-2019 Telephone encounter Dorsalgia, unspecified GROVER YOUNG (no [facility] (no phone) phone) 01-17-2019 Telephone encounter Dorsalgia, unspecified GROVER YOUNG (no [facility] (no phone) phone) 01-16-2019 Telephone encounter Dorsalgia, unspecified GROVER YOUNG (no [facility] (no phone) phone) 01-14-2019 Telephone encounter no information GROVER BUNCH (n o [facility] (no phone) phone) 01-08-2019 Telephone encounter no information GROVER BUNCH (n o [facility] (no phone) phone) 12-25-2018 Telephone encounter Dorsalgia, unspecified GROVER BUNCH (no [facility] (no phone) phone) 12-16-2018 Telephone encounter no information JAIMA ARNOLD (no [facility] (no phone) JAIMA zzBECKER phone) (no phone) 12-13-2018 Telephone encounter no information EDUAR CLAYTON (no [facility] (no phone) phone) 12-04-2018 Telephone encounter no information JAIMA ARNOLD (no [facility] (no phone) JAIMA zzBECKER phone) (no phone) 11-27-2018 Telephone encounter Dorsalgia, unspecified GROVER BUNCH (no [facility] (no phone) phone) 10-29-2018 Telephone encounter Dorsalgia, unspecified JAIMA BE CKER (no [facility] (no phone) JAIMA zzBECKER phone) (no phone) 10-02-2018 Telephone encounter no information JAIMA ARNOLD (no [facility] (no phone) JAIMA zzBECKER phone) (no phone) 09-27-2018 Telephone encounter Dorsalgia, unspecified JAIMA BE CKER (no [facility] (no phone) JAIMA zzBECKER phone) (no phone) 08-30-2018 Telephone encounter Dorsalgia, unspecified GROVER BUNCH (no [facility] (no phone) phone) 08-05-2018 Telephone encounter no information JAIMA ARNOLD (no [facility] (no phone) JAIMA zzBECKER phone) (no phone) 08-02-2018 Telephone encounter Dorsalgia, unspecified JAIMA BE CKER (no [facility] (no phone) JAIMA zzBECKER phone) (no phone) 07-30-2018 Telephone encounter Difficulty in walking, JAIMA BE CKER (no [facility] (no not elsewhere phone) JAIMA zzBECKER phone) classified (no phone) 07-08-2018 Telephone encounter no information JAIMA ARNOLD (no [facility] (no phone) JAIMA zzBECKER phone) (no phone) 07-05-2018 Telephone encounter Dorsalgia, unspecified JAIMA BE CKER (no [facility] (no phone) JAIMA zzBECKER phone) (no phone) 06-05-2018 Telephone encounter Dorsalgia, unspecified JAIMA BE CKER (no [facility] (no phone) JAIMA zzBECKER phone) (no phone) 05-30-2018 Telephone encounter no information JAIMA ARNOLD (no [facility] (no phone) JAIMA zzBECKER phone) (no phone) 05-29-2018 Telephone encounter Difficulty in walking, JAIMA BE CKER (no [facility] (no not elsewhere phone) JAIMA zzBECKER phone) classified (no phone) 05-28-2018 Telephone encounter no information JAIMA ARNOLD (no [facility] phone) JAIMA zzBECKER (no phone) (no phone) 05-07-2018 Telephone encounter Dorsalgia, unspecified JAIMA BE CKER (no [facility] (no phone) ROSANNE CHENGBURN phone) (no phone) JAIMA zzBECKER (no phone) 04-05-2018 Telephone encounter Dorsalgia, unspecified JAIMA BE CKER (no [facility] (no - phone) JAIMA zzBECKER phone) 04-05-2018 (no phone) - 04-05-2018 03-21-2018 Telephone encounter no information JAIMA ARNOLD ([facility]) JAIMA zzBECKER (no phone) 03-21-2018 (no phone) - 03-21-2018 03-07-2018 Telephone encounter Dorsalgia, unspecified JAIMA BE CKER (no [facility] (no - phone) JAIMA zzBECKER phone) 03-07-2018 (no phone) - 03-07-2018 02-25-2018 Telephone encounter Dorsalgia, unspecified JAIMA BE CKER [facility] JAIMA zzBECKER (no phone) 02-25-2018 (no phone) - 02-25-2018 02-07-2018 Telephone encounter no information JAIMA ARNOLD (no [facility] (no - phone) JAIMA zzBECKER phone) 02-07-2018 (no phone) - 02-07-2018 02-03-2018 Telephone encounter no information Doctor Migration (no [facility] - phone) (no phone) 02-03-2018 - 02-03-2018 02-02-2018 Telephone encounter no information [facility] Migration [facility] phone) (no phone) 02-02-2018 - 02-02-2018 Medical Equipment The data below is from unstructured sourcesNo Medical Equipment Information available Payers Normalized Payer Value Unknown no information ([id number]) Evaluation note Note Type Note Facility Evaluation No Assessments Information Available A scension note [facility] ([id number]) History general Narrative - Reported Note Type Note Facility History general Narrative - Reported Type Medical stroke History Medical seizure History Medical esophageal cancer History Medical chronic constipation History Medical marijuana use History Medical mastoiditis,acute,left History Medical history of myocardial infar ction History Medical DVT's History Medical leg swelling History Medical acute DVT of right lower ex tremity History Medical acute alcoholic intoxicatio n with complication History Medical numbness of right lower ext remity History Medical ear discharge of right ear History Medical bulbar palsy chronic History Medical generalized hyperreflexia History Medical noncompliance History Medical spastic dysarthria History Medical weakness of both lower extr emities History Medical history of falls History Medical midline low back pain witho ut sciatica History Medical numbness of left hand History Medical physical deconditioning History Medical anxiety History Medical wax in ear History Medical tobacco abuse counseling History Medical thyroid mass History Medical dizziness,nonspecific History Medical back pain, thoracic History Medical COPD chronic History Medical CAD History Medical history of nasopharyngeal c ancer History Medical acute on chronic renal fail ure History Medical leukocytosis History Medical pneumonia History Medical respiratory failure, acute History Medical HTN History Medical nasopharyngeal carcinoma ch ronic History Medical overdose drug History Medical cerebrovascular disease History Medical insomnia History Medical hyperlipidemia History Medical STEMI (ST elevation myocard ial infarction) History Medical cerebral infarction chronic History [facility] ([id number]) Advance Directives Advance Directive Response Recorded Date/Time Advance Directives No Ma [facility] 2012 1:31pm Health Care Power of Director Of Acquisition Marketing No April 17, 2012 1:31pm Organ Donor No April 1:31pm Chief Complaint and Reason for Visit Chief Complaint Abdominal/GI Problem s Reason for Visit [id number] Additional Source Comments This clinical document has been generated using [employer] software that has been certified by the Office of the National Coordinator for Health Information Technology (ONC 15.99.04.3023.[id number]) and the National Committee for Pediatric Critical Care Nurse (NCQA, as an eMeasure certified technology). FOR RECORDS PERTAINING TO PATIENTS WHO ARE OR HAVE BEEN ENROLLED IN A CHEMICAL D EPENDENCY/SUBSTANCE ABUSE PROGRAM, SOME INFORMATION MAY BE OMITTED. This clinica l summary was aggregated from multiple sources. Caution should be exercised in using it in the provision of clinical care. This summary normalizes information from multiple sources, and as a consequence, information in this document may ma terially change the coding, format and clinical context of patient data. In yue tion, data may be omitted in some cases. CLINICAL DECISIONS SHOULD BE BASED ON T HE PRIMARY CLINICAL RECORDS. [employer] provides no warranty or guara ntee of the accuracy or completeness of information in this document.The followi ng information is based on time limited clinical information UNRECOGNIZED CONTENT PROVIDED BELOW FOR UNRECOGNIZED SECTION REASON FOR VISIT INRLab, Pt here for INR. L. Seested, RNcontrolled med refillcontrolled med refil l UNRECOGNIZED CONTENT PROVIDED BELOW FOR UNRECOGNIZED SECTION MEDICAL (GENERAL) HISTORY Type Description Date Medical History stroke Medical History seizure Medical History esophageal cancer Medical History chronic constipation Medical History marijuana use Medical History mastoiditis,acute,left Medical History history of myocardia l infarction Medical History DVT's Medical History leg swelling Medical History acute DVT of right l ower extremity Medical History acute alcoholic into xication with complication Medical History numbness of right lo wer extremity Medical History ear discharge of right ear Medical History bulbar palsy chronic Medical History generalized hyperreflexia Medical History noncompliance Medical History spastic dysarthria Medical History weakness of both low er extremities Medical History history of falls Medical History midline low back ulises n without sciatica Medical History numbness of left hand Medical History physical deconditioning Medical History anxiety Medical History wax in ear Medical History tobacco abuse counseling Medical History thyroid mass Medical History dizziness,nonspecific Medical History back pain, thoracic Medical History COPD chronic Medical History CAD Medical History history of nasophary ngeal cancer Medical History acute on chronic lianne al failure Medical History leukocytosis Medical History pneumonia Medical History respiratory failure, acute Medical History HTN Medical History nasopharyngeal carci noma chronic Medical History overdose drug Medical History cerebrovascular disease Medical History insomnia Medical History hyperlipidemia Medical History STEMI (ST elevation myocardial infarction) Medical History cerebral infarction chroni c
--- OUTSIDE RECORDS SUMMARY | 2019-07-14 22:48 | XMS REPORT | Clinical Summary ---
Author Author [facility] Organization [facility] Address Unknown Phone Unavailable Care Team Providers Care Director Of Special Services Name Role Phone William Tee MD Unavailable Melvin Moran MD Unavailable Cristobal Gonzales MD Unavailable Irene Huang MD PCP Ramiro Lovell DO Unavailable Source Comments Some departments are not documenting in the electronic medical record. If you d o not see the information that you expected, contact Release of Information in [facility] Information Management department at [phone] for further assistan ce in locating additional records.[facility] Allergies Comments Active Allergy Reactions Severity Noted Date Prochlorperazine UNKNOWN 05/11/2007 Metoclopramide 05/12/2007 Medications End Date Status Medication Sig Dispensed Refills Start Date Active atorvastatin (LIPITOR) 40 Take 2 Tabs 30 3 05/13/200 mg tablet by mouth 8 Daily. Active dipyridamole/aspirin Take 1 Cap by 60 0 (AGGRENOX) 200/25 mg mouth Twice 8 capsule Daily. Active citalopram (CELEXA) 20 mg Take 1 Tab by 60 Tab 1 tablet mouth at 2 bedtime daily. Active traZODone (DESYREL) 100 Take 100 mg 0 mg tablet by mouth at bedtime as needed. Active HYDROcodone-acetaminophen Take 1 Tab by 0 (+) (VICODIN) 10-325 mg mouth every 6 tablet hours as needed. Active meclizine (ANTIVERT) 25 Take 25 mg by 0 mg tablet mouth three times daily as needed. Active aspirin 325 mg tablet Take 325 mg 0 by mouth daily. Active aspirin EC 81 mg Take 1 Tab by 30 Tab 6 01 tabletIndications: Late mouth daily. 5 effect of stroke Active dipyridamole/aspirin Take 1 Cap by 60 Cap 6 (AGGRENOX) 200/25 mg mouth twice 5 capsuleIndications: Late daily. 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 STEMI (ST elevation myocardial infarction) 8 Hyperlipidemia 05/14/2007 CVA (cerebral infarction) 05/14/2007 Immunizations Name Administration Dates Next Due Pneumococcal Vaccine 06/27/2011 (23-[facility] Adult) Family History Medical History Relation Name Comments Heart Attack Father Heart Attack Mother Relation Name Status Comments Father Mother Social History Date Tobacco Use Types Packs/Day Years Used Quit: 12/04/2014 Former Smoker Cigarettes 1 18 Smokeless Tobacco: Never Used Drinks/Week oz/Week Comments Alcohol Use 0 Standard drinks or equivalent 0.0 occasional vodka use Yes Sex Assigned at Date Recorded Not on file Industry Job Start Date Occupation Not on file Not on file Not on file Travel End Travel History Travel Start No recent travel history available. Last Filed Vital Signs Reading Time Taken Comments Vital Sign 112/81 02/25/2015 2:21 PM [employer] SPECIALIST Blood Pressure 53 02/25/2015 2:21 PM [employer] Pulse 36.3 C (97.4 F) 02/25/2015 2:21 PM [employer]ATIONS [employer]IST Temperature 16 02/25/2015 2:21 PM [employer]ATIONS [employer]IST Respiratory Rate 99% 02/25/2015 2:21 PM RELATIONS SPECIALIST Oxygen Saturation - - Inhaled Oxygen Concentration 81.6 kg (180 lb) 04/13/2015 3:47 PM [employer]ATIONS SPECIALIST Weight 188 cm (6' 2.02") 04/13/2015 3:47 PM [employer]ATIONS [employer]IST Height 23.1 04/13/2015 3:47 PM [employer] SPECIALIST Body Mass Index Plan of Treatment Health Maintenance Due Date Last Done Comments HIV SCREENING 08/28/1986 DTAP/TDAP VACCINES (1 - 08/28/1989 Tdap) HEPATITIS C SCREENING 08/28/1989 PHYSICAL (COMPREHENSIVE) 08/28/1989 EXAM INFLUENZA VACCINE 11/06/2019 Results Not on filefrom Last 3 Months Insurance Type Payer Benefit Subscriber ID Effective Phone Address Plan / Dates Group Medicaid [facility] MEDICAID [facility] xxxxxxxxxxx [id number] [employer] [employer] [place] [phone] 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 needed
--- OUTSIDE RECORDS SUMMARY | 2019-07-14 22:48 | XMS REPORT | Continuity of Care Document ---
Author Organization Unknown Address Unknown Phone Unavailable Allergies Active Description Code Type Severity Reaction Onset Reported/Identified Relationship to Patient Clinical Status Yes metoclopramide [id number] Dr mcfadden Allergy Unknown N/A 12/14/2006 Yes prochlorperazine [id number] Drug Allergy Unknown N/A 12/14/2006 Medications There is no data. Problems Date Dx Coded Attending Type Code Diagnosis Diagnosed By 04/17/2012 Ot 272.4 HYPE RLIPIDEMIA NEC/NOS 04/17/2012 Ot 296.80 BIP OLAR DISORDER, UNSPECIFIED 04/17/2012 Ot 305.1 TOBA PROP SAWYER USE DISORDER 04/17/2012 Ot 403.90 HYP TNSV CHR KID DIS, UNSPEC, W CHR KD ST 04/17/2012 Ot 412 OLD MY OCARDIAL INFARCT 04/17/2012 Ot 414.01 COR ONARY ATHEROSCLEROSIS OF [place] CORON 04/17/2012 Ot 496 CHR AI RWAY OBSTRUCT NEC 04/17/2012 Ot 585.9 ROOFER HELPER VINYL COATING JENELLE KIDNEY DISEASE, UNSPECIFIED 04/17/2012 Ot 786.09 RES PIRATORY ABNORM NEC 04/17/2012 Ot V12.54 PER ИРИНА HX OF TIA, CEREBRAL INFARCTION 04/17/2012 Ot V15.81 HX OF PAST NONCOMPLIANCE 04/17/2012 Ot V45.82 PER CUTANEOUS TRANSLUM CORON ANGIOPLASTY 04/17/2012 Ot V58.63 LAUREL G- TERM(CURRENT)USE OF ANTIPLATELET/AN 04/17/2012 Ot V58.66 LAUREL G-TERM (CURRENT) USE OF ASPIRIN 04/17/2012 Ot V58.69 OTH MED,LT,CURRENT USE 06/10/2014 Ot 412 06/10/2014 Ot 414.00 06/10/2014 Ot V72.81 06/10/2014 Ot 412 06/10/2014 Ot 414.01 06/10/2014 Ot V72.81 07/20/2014 MITUL SINCLAIR Ot 401.9 07/20/2014 MITUL SINCLAIR Ot 414.00 07/20/2014 MITUL SINCLAIR Ot 433.10 07/20/2014 MITUL SINCLAIR Ot 434.91 11/18/2015 MONICO UGALDE MD Ot E78. 5 HYPERLIPIDEMIA, UNSPECIFIED 11/18/2015 MONICO GUALDE MD Ot I10 ESSENTIAL (PRIMARY) HYPERTENSION 11/18/2015 MONICO UGALDE MD Ot I25. 10 ATHSCL HEART DISEASE OF [place] CORONARY 11/18/2015 MONICO UGALDE MD Ot I63. 9 CEREBRAL INFARCTION, UNSPECIFIED 11/19/2015 Ot 412 OLD MY OCARDIAL INFARCT 11/19/2015 Ot 414.00 COR ON ATHEROSCLER NOS TYPE VESSEL, NATIV 11/19/2015 Ot V72.81 [id number] CARDIOVASCULAR 11/19/2015 Ot 412 OLD MY OCARDIAL INFARCT 11/19/2015 Ot 414.01 COR ONARY ATHEROSCLEROSIS OF [place] CORON 11/19/2015 Ot V72.81 [id number] CARDIOVASCULAR 11/19/2015 MITUL SINCLAIR Ot 401.9 HYPERTENSION NOS 11/19/2015 MIUTL SINCLAIR Ot 414.00 CORON ATHEROSCLER NOS TYPE VESSEL, NATIV 11/19/2015 MITUL SINCLAIR Ot 433.10 CAROTID ARTERY OCCLUSION W O CEREBRAL IN 11/19/2015 MITUL SINCLAIR Ot 434.91 CEREBRAL ART OCCLUSION NOS W CEREBRAL IN 11/19/2015 MONICO UGALDE MD Ot E78. 5 HYPERLIPIDEMIA, UNSPECIFIED 11/19/2015 MONICO UGALDE MD Ot I10 ESSENTIAL (PRIMARY) HYPERTENSION 11/19/2015 MONICO UGALDE MD Ot I25. 10 ATHSCL HEART DISEASE OF [place] CORONARY 11/19/2015 MONICO UGALDE MD Ot I63. 9 CEREBRAL INFARCTION, UNSPECIFIED 12/01/2015 MONICO UGALDE MD Ot E78. 5 HYPERLIPIDEMIA, UNSPECIFIED 12/01/2015 MONICO UGALDE MD Ot I10 ESSENTIAL (PRIMARY) HYPERTENSION 12/01/2015 MONICO UGALDE MD Ot I25. 10 ATHSCL HEART DISEASE OF [place] CORONARY 12/01/2015 MONICO UGALDE MD Ot I63. 9 CEREBRAL INFARCTION, UNSPECIFIED 12/09/2015 Ot 412 OLD MY OCARDIAL INFARCT 12/09/2015 Ot 414.00 COR ON ATHEROSCLER NOS TYPE VESSEL, NATIV 12/09/2015 Ot V72.81 [id number] CARDIOVASCULAR 12/09/2015 Ot 412 OLD MY OCARDIAL INFARCT 12/09/2015 Ot 414.01 COR ONARY ATHEROSCLEROSIS OF [place] CORON 12/09/2015 Ot V72.81 [id number] CARDIOVASCULAR 12/09/2015 MITUL SINCLAIR Ot 401.9 HYPERTENSION NOS 12/09/2015 MITUL SINCLAIR Ot 414.00 CORON ATHEROSCLER NOS TYPE VESSEL, NATIV 12/09/2015 MITUL SINCLAIR Ot 433.10 CAROTID ARTERY OCCLUSION W O CEREBRAL IN 12/09/2015 MITUL SINCLAIR Ot 434.91 CEREBRAL ART OCCLUSION NOS W CEREBRAL IN 12/09/2015 MONICO UGALDE MD Ot E78. 5 HYPERLIPIDEMIA, UNSPECIFIED 12/09/2015 MONICO UGALDE MD Ot I10 ESSENTIAL (PRIMARY) HYPERTENSION 12/09/2015 MONICO UGALDE MD Ot I25. 10 ATHSCL HEART DISEASE OF [place] CORONARY 12/09/2015 MONICO UGALDE MD Ot I63. 9 CEREBRAL INFARCTION, UNSPECIFIED 12/10/2015 MITUL SINCLAIR Ot E07.9 DISORDER OF THYROID, UNSPECIFIED 12/10/2015 MITUL SINCLAIR Ot E78.2 MIXED HYPERLIPIDEMIA 12/10/2015 MITUL SINCLAIR Ot I10 ESSENTIAL (PRIMARY) HYPERTENSION 12/10/2015 MITUL SINCLAIR Ot I25.10 ATHSCL HEART DISEASE OF [place] CORONARY 12/10/2015 MITUL SINCLAIR Ot I65.23 OCCLUSION AND STENOSIS OF BILATERAL [place] 12/22/2015 MITUL SINCLAIR Ot E07.9 DISORDER OF THYROID, UNSPECIFIED 12/22/2015 MITUL SINCLAIR Ot E78.2 MIXED HYPERLIPIDEMIA 12/22/2015 MITUL SINCLAIR Ot I10 ESSENTIAL (PRIMARY) HYPERTENSION 12/22/2015 MITUL SINCLAIR Ot I25.10 ATHSCL HEART DISEASE OF [place] CORONARY 12/22/2015 MITUL SINCLAIR Ot I65.23 OCCLUSION AND STENOSIS OF BILATERAL [place] 12/10/2018 RACHEL STOVER MD Ot I25. 2 OLD MYOCARDIAL INFARCTION 12/10/2018 RACHEL STOVER MD Ot J44. 9 CHRONIC OBSTRUCTIVE PULMONARY DISEASE, U 12/10/2018 RACHEL STOVER MD Ot K59. 00 CONSTIPATION, UNSPECIFIED 12/10/2018 RACHEL STOVER MD Ot Z79. 02 ASPHALT HEATER TENDER (CURRENT) USE OF ANTITHROMBOTI 12/10/2018 RACHEL STOVER MD Ot Z79. 82 PRISON (CURRENT) USE OF ASPIRIN 12/10/2018 RACHEL STOVER MD Ot Z86. 73 PRSNL HX OF TIA (TIA), AND CEREB INFRC W 12/10/2018 RACHEL STOVER MD Ot Z88. 8 ALLERGY STATUS TO OTH DRUG/MEDS/BIOL SUB Procedures There is no data. Results Test Result Range PDM - 09 PANEL (PROFILE 1) - 10/30/18 13 :30 Prescribed Drug 1 Hydrocodone NRG Creatinine 225.7 mg/dL > or = 20.0 pH 7.8 4.5-9.0 Oxidant NEGATIVE mcg/mL <200 Amphetamines NEGATIVE ng/mL <500 medMATCH Amphetamines CONSISTENT NRG Benzodiazepines NEGATIVE ng/mL <100 medMATCH Benzodiazepines CONSISTENT NRG Marijuana Metabolite NEGATIVE ng/mL <20 medMATCH Marijuana Metab CONSISTENT NRG Cocaine Metabolite NEGATIVE ng/mL <150 medMATCH Cocaine Metab CONSISTENT NRG Opiates POSITIVE ng/mL <100 Oxycodone NEGATIVE ng/mL <100 medMATCH Oxycodone CONSISTENT NRG COMMENT NRG Codeine NEGATIVE ng/mL <50 medMATCH Codeine CONSISTENT NRG Hydrocodone 4125 ng/mL <50 medMATCH Hydrocodone CONSISTENT NRG Hydromorphone 1076 ng/mL <50 medMATCH Hydromorphone CONSISTENT NRG Morphine NEGATIVE ng/mL <50 medMATCH Morphine CONSISTENT NRG Norhydrocodone 4921 ng/mL <50 medMATCH Norhydrocodone CONSISTENT NRG Barbiturates NEGATIVE ng/mL <300 medMATCH Barbiturates CONSISTENT NRG Methadone Metabolite NEGATIVE ng/mL <100 medMATCH Methadone Metab CONSISTENT NRG Phencyclidine NEGATIVE ng/mL <25 medMATCH Phencyclidine CONSISTENT NRG TSH w/ FREE T4 - 12/19/18 14:30 TSH 5.23 mIU/L 0.40-4.50 T4, FREE 1.2 ng/dL 0.8-1.8 LIPID PANEL - 12/19/18 14:30 CHOLESTEROL, TOTAL 247 mg/dL <200 HDL CHOLESTEROL 39 mg/dL >40 TRIGLYCERIDES 162 mg/dL <150 LDL-CHOLESTEROL 177 mg/dL (calc) NRG CHOL/HDLC RATIO 6.3 (calc) <5.0 NON HDL CHOLESTEROL 208 mg/dL (calc) <13 0 CMP - 12/19/18 14:30 GLUCOSE 91 mg/dL 65-99 UREA NITROGEN (BUN) 17 mg/dL 7-25 CREATININE 1.66 mg/dL 0.60-1.35 eGFR NON-AFR. LIBYAN 48 mL/min/1.73m2 > OR = 60 eGFR 56 mL/min/1.73m2 > OR = 60 BUN/CREATININE RATIO 10 (calc) 6-22 SODIUM 142 mmol/L 135-146 POTASSIUM 4.2 mmol/L 3.5-5.3 CHLORIDE 107 mmol/L 98-110 CARBON DIOXIDE 22 mmol/L 20-32 CALCIUM 9.3 mg/dL 8.6-10.3 PROTEIN, TOTAL 7.1 g/dL 6.1-8.1 ALBUMIN 4.4 g/dL 3.6-5.1 GLOBULIN 2.7 g/dL (calc) 1.9-3.7 ALBUMIN/GLOBULIN RATIO 1.6 (calc) 1.0-2. 5 BILIRUBIN, TOTAL 0.6 mg/dL 0.2-1.2 ALKALINE PHOSPHATASE 48 U/L 40-115 AST 15 U/L 10-40 ALT 15 U/L 9-46 CBC - 12/19/18 14:30 WHITE BLOOD CELL COUNT 8.7 Thousand/uL 3 .8-10.8 RED BLOOD CELL COUNT 5.46 Million/uL 4.2 0-5.80 HEMOGLOBIN 15.2 g/dL 13.2-17.1 HEMATOCRIT 45.0 % 38.5-50.0 MCV 82.4 fL 80.0-100.0 MCH 27.8 pg 27.0-33.0 MCHC 33.8 g/dL 32.0-36.0 RDW 13.9 % 11.0-15.0 PLATELET COUNT 308 Thousand/uL 140-400 MPV 10.0 fL 7.5-12.5 ABSOLUTE NEUTROPHILS 4811 cells/uL 1500- 7800 ABSOLUTE LYMPHOCYTES 3002 cells/uL 850-3 900 ABSOLUTE MONOCYTES 713 cells/uL 200-950 ABSOLUTE EOSINOPHILS 131 cells/uL 15-500 ABSOLUTE BASOPHILS 44 cells/uL 0-200 NEUTROPHILS 55.3 % NRG LYMPHOCYTES 34.5 % NRG MONOCYTES 8.2 % NRG EOSINOPHILS 1.5 % NRG BASOPHILS 0.5 % NRG Encounters ACCT No. Visit Date/Time Discharge Status Pt. Type Provider Facility Loc./Unit Complaint [id number] 05/31/2019 14:20:00 05/31/2019 23:59: 59 CLS Outpatient GROVER BUNCH [facility] SAMMY [id number] 12/19/2018 14:40:00 Document Registration [id number] 10/30/2018 13:00:00 Document Registration [id number] 12/06/2018 18:44:00 19:22:00 DIS Outpatient RACHEL STOVER MD [facility] ER FS CONSTIPATION [id number] 12/09/2015 12:37:00 23:59:59 CLS Outpatient CODEY SINCLAIR [facility] RAD CAD,THYROID MASS,HTN,HLP [id number] 11/17/2015 12:45:00 016 23:59:59 CLS Outpatient MONICO UGALDE MD [facility] CARD CAD,CVA,ROSAMARIA [id number] 06/10/2014 08:53:00 015 23:59:59 CLS Outpatient CODEY SINCLAIR [facility] CARD CAD,CVA,ROSAMARIA ,HTN [id number] 07/14/2019 18:00:[address] Inpatient BRENDA CERVANTES, MARITZA Laws [facility] 4TH HYPOKALEMIA,HYPOCALCEMIA,HYP OMAG [id number] 06/10/2014 08:52:00 Document Registration [id number] 06/10/2014 08:52:00 Document Registration [id number] 04/02/2012 10:39:00 Document Registration
--- OUTSIDE RECORDS SUMMARY | 2019-07-14 22:48 | XMS REPORT | Continuity of Care Document ---
Author Author [facility] [place] Organization [facility] Address Unknown Phone Unavailable Care Team Providers Care Medical Staff Services Manager Name Role Phone [facility] Unavailable Unavailable Problems Problem Status Onset Date Classification Date Reported Comments Source SHORTNESS OF BREATH Active ClearAccess LOSS OF WEIGHT Active [facility] Medications No Data Provided for This Section Allergies, Adverse Reactions, Alerts No Known Medication Allergies Immunizations No Data Provided for This Section Results No Data Provided for This Section Pathology Reports No Data Provided for This Section Diagnostic Reports No Data Provided for This Section Consultation Notes No Data Provided for This Section Discharge Summaries No Data Provided for This Section History and Physicals No Data Provided for This Section Vital Signs No Data Provided for This Section Encounters Location Location Details Encounter Type Encounter Number Reason For Visit Attending Provider ADM Date DC Date Status Source [facility] [id number] SHORTNESS OF BREATH WEIGHT LOSS KIMBER LOMAS 12/19/2010 12/19/2010 Active ClearAccess Procedures No Data Provided for This Section Plan of Care No Data Provided for This Section Social History No Data Provided for This Section Assessment and Plan No Data Provided for This Section Family History No Data Provided for This Section Advance Directives No Data Provided for This Section Functional Status No Data Provided for This Section
--- OUTSIDE RECORDS SUMMARY | 2019-07-14 22:48 | XMS REPORT ---
Author Author Bandar Starr Organization [facility] Address [address] [place] [address] Care Team Providers Care Skydiving Instructor Name Role Phone MARK Starr Unavailable PROBLEMS Type Condition ICD9-CM Code [id number] Code Onset Dates Condition S tatus SNOMED Code Problem History of fall Z91.81 Dec, Active 4 32775450 Problem Back pain, thoracic M54.6 10 Aug, 2013 Active 770687960 Problem Physical deconditioning R53.81 Sep, Act marion [id number] Problem Personal history of DVT (deep vein thrombosis) Z86.718 Mar, Active 254964341 Problem Thyroid mass E07.9 May, Active 2375 32556 Problem Cerebrovascular disease I67.9 10 Jun, 2011 Act marion 97566820 Problem Midline low back pain without sciatica M54.5 1 Nov, Active 266950586 Problem Late effect of stroke I69.30 Jan, Activ e 6340242308430 Problem Dizziness, nonspecific R42 May, Acti ve 707406663 Problem Cerebral infarction I63.9 08 May, 2007 Active 959694134 Problem Constipation, chronic K59.09 Nov, Activ e 072102267 Problem Numbness of right lower extremity R20.0 Feb Active 42130491 Problem Acute deep vein thrombosis (DVT) of right lower extrem ity I82.401 Mar, Active Problem Mastoiditis, acute, left H70.002 Apr, Ac tive 685971470 Problem Anxiety F41.9 June, Active 4440916 2 Problem 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 Jan, Active 1260 4004 Problem Spastic dysarthria R47.1 Jan, Active 782419356 Problem Overdose drug T50.901A June, Active 423 34606 Problem Generalized hyperreflexia R29.2 Jan, A ctive 06832709 Problem 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, 2011 Active Problem Zpnmj-tb-tzaqiuk renal failure N17.9 18 June, 2 012 Active 152606355 Problem History of myocardial infarction I25.2 08 Mar, 2017 Active 277760125 Problem STEMI (ST elevation myocardial infarction) I21.3 08 May, 2007 Active 327498034 Problem Weakness of both lower extremities R29.898 16 2014 Active 121628 Problem Numbness of left hand R20.0 06 Sep, 2014 Activ e 12672429 Problem Marijuana use F12.90 Apr, Active 191 548027 Problem Hyperlipidemia E78.5 08 May, 2007 Active 55 361105 Problem Mixed hyperlipidemia E78.2 Active 698361574 Problem HTN (hypertension) I10 June, Active 68722995 Problem snf current use of 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 Z79.01 Active 504420705 Problem COPD (chronic obstructive pulmonary disease) J4 4.9 17 Mar, 2013 Active 54350168 Problem CAD (coronary artery disease) I25.10 Sep, 12 Active 35613279 Problem Chronic back pain M54.9 Active 13 5569282 Problem Hypertension I10 Active 9593331 3 Problem Atrial fibrillation, unspecified type I48.91 Active 79698466 Problem Difficulty walking R26.2 Active 7 38746563 ALLERGIES No Information ENCOUNTERS Encounter Location Date Diagnosis [address] [id number] [place] [address] June, [facility] [place] [address] [facility] [id number] [address] [place] [address] June, [address] [id number] [place] [address] June, [address] [id number] [place] [address] June, [address] [id number] [place] [address] June, Atrial fibrillation, unspecified type I4 8.[address] [id number] [place] [address] May, [address] [id number] [place] [address] May, Chronic back pain M54.9 [facility] Lambert[address] [place] [address] RD [id number] [place] [address] May, [facility] Lambert[address] [place] [address] RD [id number] [place] [address] May, Toe pain, right M79.674 [facility] [place] [address] [id number] [place] [address] May, [facility] [address] [place] [address] [id number] [place] [address] May, [address] [id number] [place] [address] May, Chronic back pain M54.9 [facility] [address] [place] [address] [id number] [place] [address] Apr, [facility] Lambert[address] [place] [address] [id number] [place] [address] Apr, Atrial fibrillation, unspecified type I4 8.91 [facility] Lambert[address] [place] [address] RD [id number] [place] [address] Apr, Atrial fibrillation, unspecified type I4 8.91 [facility] Lambert[address] [place] [address] RD [id number] [place] [address] Mar, Atrial fibrillation, unspecified type I4 8.91 [facility] Lambert[address] [place] [address] RD [id number] [place] [address] Mar, Atrial fibrillation, unspecified type I4 8.91 [facility] Lambert[address] [place] [address] RD [id number] [place] [address] Mar, Chronic back pain M54.9 [facility] Lambert[address] [place] [address] RD [id number] [place] [address] Mar, Atrial fibrillation, unspecified type I4 8.[address] 340B [id number] [place] [address] Mar, Chronic back pain M54.9 [facility] Lambert[address] [place] [address] RD [id number] [place] [address] Mar, 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 79.[address] Lambert[address] [place] [address] RD [id number] [place] [address] Mar, Atrial fibrillation, unspecified type I4 8.[address] [place], [place] [address] [id number] [place] [address] Feb, [address] [id number] [place] [address] Feb, Atrial fibrillation, unspecified type I4 8.[address] [id number] [place] [address] Feb, [facility]IE Lambert[address] [place] [address] RD [id number] [place] [address] Feb, Atrial fibrillation, unspecified type I4 8.[address] [place], [place] [address] [id number] [place] [address] Feb, Atrial fibrillation, unspecified type I4 8.[address] [place], [place] [address] [id number] [place] [address] Feb, Atrial fibrillation, unspecified type I4 8.[address] [place] [address] RD [id number] [place] [address] Feb, Onychomycosis B35.[address] [place], [place] [address] [id number] [place] [address] Feb, Atrial fibrillation, unspecified type I4 8.[address] [id number] [place] [address] Jan, TOOTIE Lambert[address] [place], [place] [address] [id number] [place] [address] Jan, TOOTIE Lambert[address] [place], [place] [address] [id number] [place] [address] Jan, Atrial fibrillation, unspecified type I4 8.91 [facility] [place] [address] [id number] [place] [address] Jan, Chronic back pain M54.9 [facility] [place] [address] [id number] [place] [address] Jan, Atrial fibrillation, unspecified type I4 8.91 [facility] [place] [address] [place], [place] [address] [id number] [place] [address] Jan, Chronic back pain M54.9 [facility] [place] [address] [id number] [place] [address] Jan, Chronic back pain M54.9 [facility] [place] [address] [place], [place] [address] [id number] [place] [address] Jan, Atrial fibrillation, unspecified type I4 8.91 [facility] [place] [address] [place], [place] [address] [id number] [place] [address] Jan, [facility] [place] [address] [place], [place] [address] [id number] [place] [address] Jan, [facility] [place] [address] [place], [place] [address] [id number] [place] [address] Jan, Atrial fibrillation, unspecified type I4 8.91 [facility] [address] [place], [place] [address] [id number] [place] [address] Jan, Excessive cerumen in ear canal, bilatera l H61.23 [facility] [place] [address] [place], [place] [address] [id number] [place] [address] Jan, [facility] [place] [address] [id number] [place] [address] Dec, Mixed hyperlipidemia E78.2 and Atrial fi brillation, unspecified type I48.91 [facility] [place] [address] [id number] [place] [address] Dec, [facility] [place] [address] [id number] [place] [address] Dec, Atrial fibrillation, unspecified type I4 8.91 [facility] [address] [id number] [place] [address] Dec, Chronic back pain M54.9 [facility] [address] [place], [place] [address] [address] [id number] [place] [address] Dec, Atrial fibrillation, unspecified type I4 8.91 ; Hypertension I10 and Hyperlipidemia E78.5 [facility] [address] [id number] [place] [address] Dec, [facility] [address] [place], [place] [address] [id number] [place] [address] Dec, [facility] [address] [place], [place] [address] [id number] [place] [address] Dec, Atrial fibrillation, unspecified type I4 8.91 [facility] [address] [place], [place] [address] [address] [id number] [place] [address] Nov, [facility] Lambert[address] [place], [place] [address] [id number] [place] [address] Nov, [facility] [address] [place], [place] [address] [id number] [place] [address] Nov, Atrial fibrillation, unspecified type I4 8.91 [facility] [address] [place], [place] [address] [id number] [place] [address] Nov, Chronic back pain M54.9 [facility] [address] [place], [place] [address] [id number] [place] [address] Nov, Excessive cerumen in ear canal, bilatera l H61.23 [facility] [address] [id number] [place] [address] Nov, Atrial fibrillation, unspecified type I4 8.91 [facility] [address] [place], [place] [address] [id number] [place] [address] Nov, Atrial fibrillation, unspecified type I4 8.91 [facility] [address] [id number] [place] [address] Nov, Atrial fibrillation, unspecified type I4 8.[address] [facility] [address] [id number] [place] [address] Oct, Atrial fibrillation, unspecified type I4 8.[address] [facility] [id number] [place] [address] Oct, Chronic back pain M54.9 and Atrial fibri llation, unspecified type I48.91 [facility] Lambert[address] [place], [place] [address] [id number] [place] [address] Oct, Chronic back pain M54.9 [facility] [address] [id number] [place] [address] Oct, Atrial fibrillation, unspecified type I4 8.91 [facility] [address] [place], [place] [address] [id number] [place] [address] Oct, [facility] [address] [id number] [place] [address] Oct, Atrial fibrillation, unspecified type I4 8.[address] [id number] [place] [address] Oct, Atrial fibrillation, unspecified type I4 8.[address] [facility] [address] [place], [place] [address] [id number] [place] [address] Sep, [facility] Lambert[address] [place], [place] [address] [id number] [place] [address] Sep, [facility] [address] [place], [place] [address] [id number] [place] [address] Sep, Atrial fibrillation, unspecified type I4 8.91 [facility] [address] [id number] [place] [address] Sep, Chronic back pain M54.9 [facility] [address] [id number] [place] [address] Sep, Atrial fibrillation, unspecified type I4 8.[address] [id number] [place] [address] Sep, Atrial fibrillation, unspecified type I4 8.[address] [id number] [place] [address] Sep, Atrial fibrillation, unspecified type I4 8.[address] [id number] [place] [address] Sep, Atrial fibrillation, unspecified type I4 8.[address] [id number] [place] [address] Sep, Atrial fibrillation, unspecified type I4 8.[address] [id number] [place] [address] Aug, Atrial fibrillation, unspecified type I4 8.[address] [id number] [place] [address] Aug, Chronic back pain M54.[address] [place], [place] [address] [id number] [place] [address] Aug, Atrial fibrillation, unspecified type I4 8.[address] [id number] [place] [address] Aug, Atrial fibrillation, unspecified type I4 8.[address] [id number] [place] [address] Aug, Atrial fibrillation, unspecified type I4 8.91 [address] [id number] [place] [address] Aug, Atrial fibrillation, unspecified type I4 8.[address] [id number] [place] [address] Aug, Atrial fibrillation, unspecified type I4 8.91 [facility] Lambert[address] [place], [place] [address] [id number] [place] [address] Aug, [facility] [address] [id number] [place] [address] Jul, [facility] [address] [id number] [place] [address] Jul, [facility] [address] [id number] [place] [address] Jul, Chronic back pain M54.9 [facility] [address] [place], [place] [address] [id number] [place] [address] Jul, Chronic back pain M54.9 [facility] [address] [place], [place] [address] [id number] [place] [address] Jul, Difficulty walking R26.2 [facility] [id number] [place] [address] Jul, Difficulty walking R26.2 [facility] [address] [place], [place] [address] [id number] [place] [address] Jul, Atrial fibrillation, unspecified type I4 8.91 [facility] [address] [place], [place] [address] [address] [id number] [place] [address] Jul, Atrial fibrillation, unspecified type I4 8.91 [facility] [address] [place], [place] [address] [id number] [place] [address] Jul, Atrial fibrillation, unspecified type I4 8.91 [facility] [address] [place], [place] [address] [id number] [place] [address] Jul, Atrial fibrillation, unspecified type I4 8.91 [facility] [address] [place], [place] [address] [id number] [place] [address] Jul, [facility] [address] [place], [place] [address] [id number] [place] [address] June, Chronic back pain M54.9 [facility] [address] [place] [address] [id number] [place] [address] June, Atrial fibrillation, unspecified type I4 8.91 [facility] [address] [place], [place] [address] RD [id number] [place] [address] June, Atrial fibrillation, unspecified type I4 8.91 [facility] [address] [id number] [place] [address] June, Atrial fibrillation, unspecified type I4 8.91 [facility] Lambert[address] [place] [address] RD [id number] [place] [address] June, Atrial fibrillation, unspecified type I4 8.91 [facility] Lambert[address] [place], [place] [address] [id number] [place] [address] June, Atrial fibrillation, unspecified type I4 8.91 [facility] Lambert[address] [place] [address] RD [id number] [place] [address] June, Chronic back pain M54.9 [facility]STIAN[facility] [address] [place] [address] RD [id number] [place] [address] June, Atrial fibrillation, unspecified type I4 8.91 [facility] Lambert[address] [place] [address] RD [id number] [place] [address] May, [facility] Lambert[address] [place] [address] RD [id number] [place] [address] May, Difficulty walking R26.2 [facility] Lambert[address] [place] [address] RD [id number] [place] [address] May, Atrial fibrillation, unspecified type I4 8.91 [facility] [address] [facility] [id number] [address] [place] [address] May, [facility] Lambert[address] [place] [address] RD [id number] [place] [address] May, Atrial fibrillation, unspecified type I4 8.91 [facility] Lambert[address] [place] [address] RD [id number] [place] [address] May, Atrial fibrillation, unspecified type I4 8.91 [facility] Lambert[address] [place] [address] RD [id number] [place] [address] May, Difficulty walking R26.2 [facility] [address] [place] [address] RD [id number] [place] [address] May, Atrial fibrillation, unspecified type I4 8.91 [facility] [address] [place], [place] [address] RD [id number] [place] [address] May, Chronic back pain M54.9 [facility] [address] [place] [address] RD [id number] [place] [address] May, Chronic back pain M54.9 [facility] [address] [place], [place] [address] RD [id number] [place] [address] Apr, Atrial fibrillation, unspecified type I4 8.91 [facility] [address] [place] [address] RD [id number] [place] [address] Apr, Atrial fibrillation, unspecified type I4 8.91 [facility] [address] [place] [address] RD [id number] [place] [address] Apr, Atrial fibrillation, unspecified type I4 8.91 [facility] [address] [place] [address] RD [id number] [place] [address] Apr, Atrial fibrillation, unspecified type I4 8.91 [facility] [address] [place] [address] RD [id number] [place] [address] Apr, Chronic back pain M54.9 [facility] [address] [place] [address] RD [id number] [place] [address] Apr, Atrial fibrillation, unspecified type I4 8.91 [facility] [address] [place] [address] RD [id number] [place] [address] Mar, Atrial fibrillation, unspecified type I4 8.91 [facility] [address] [facility] [id number] [address] [place] [address] Mar, [facility] [address] [place] [address] [id number] [place] [address] Mar, Excessive cerumen in ear canal, bilatera l H61.23 ; Acute otitis media H66.90 and Chronic back pain M54.9 [facility] HUMZA [address] [place], [place] [address] [id number] [place] [address] Mar, Atrial fibrillation, unspecified type I4 8.91 [facility] SAMMY [address] [place], [place] [address] [id number] [place] [address] Mar, Atrial fibrillation, unspecified type I4 8.91 [facility] [address] [id number] [place] [address] Feb, Chronic back pain M54.9 [facility] [address] [id number] [place] [address] Feb, Atrial fibrillation, unspecified type I4 8.91 [facility] [address] [id number] [place] [address] Feb, Chronic back pain M54.[address] [id number] [place] [address] Feb, Atrial fibrillation, unspecified type I4 8.91 [facility] [place] [address] [facility] [id number] [address] [place] [address] Feb, Chronic back pain M54.[address] [id number] [place] [address] Feb, Atrial fibrillation, unspecified type I4 8.[address] [id number] [place] [address] Feb, Atrial fibrillation, unspecified type I4 8.[address] [id number] [place] [address] Feb, Chronic back pain M54.9 and Hypertension I10 [facility] [address] [id number] [place] [address] Feb, [facility] [place] [address] [facility] [id number] [address] [place] [address] Jan, [facility] [place] [address] [facility] [id number] [address] [place] [address] Jan, [facility] [place] [address] [facility] [id number] [address] [place] [address] Jan, [facility] [place] [address] [facility] [id number] [address] [place] [address] Dec, [facility] [place] [address] [facility] [id number] [address] [place] [address] Dec, [facility] [place] [address] [facility] [id number] [address] [place] [id number] Nov, IMMUNIZATIONS No Known Immunizations SOCIAL HISTORY Never Assessed REASON FOR VISIT PLAN OF CARE VITAL SIGNS MEDICATIONS Medication Instructions Dosage Frequency Start Date End Date Duration S tatus Hydrocodone-Acetaminophen 10-325 MG Orally every 8 hours 1 tablet a s needed 8h Apr, 28 days Active RESULTS No Results PROCEDURES No Known procedures INSTRUCTIONS MEDICATIONS ADMINISTERED No Known Medications MEDICAL (GENERAL) HISTORY Type Description Date Medical History stroke Medical History seizure Medical History esophageal cancer Medical History chronic constipation Medical History marijuana use Medical History mastoiditis,acute,left Medical History history of myocardial infarction Medical History DVT's Medical History leg swelling Medical History acute DVT of right lower extremity Medical History acute alcoholic intoxication with compli cation Medical History numbness of right lower extremity Medical History ear discharge of right ear Medical History bulbar palsy chronic Medical History generalized hyperreflexia Medical History noncompliance Medical History spastic dysarthria Medical History weakness of both lower extremities Medical History history of falls Medical History midline low back pain without sciatica Medical History numbness of left hand Medical History physical deconditioning Medical History anxiety Medical History wax in ear Medical History tobacco abuse counseling Medical History thyroid mass Medical History dizziness,nonspecific Medical History back pain, thoracic Medical History COPD chronic Medical History CAD Medical History history of nasopharyngeal cancer Medical History acute on chronic renal failure Medical History leukocytosis Medical History pneumonia Medical History respiratory failure, acute Medical History HTN Medical History nasopharyngeal carcinoma chronic Medical History overdose drug Medical History cerebrovascular disease Medical History insomnia Medical History hyperlipidemia Medical History STEMI (ST elevation myocardial infarctio n) Medical History cerebral infarction chronic
--- OUTSIDE RECORDS SUMMARY | 2019-07-14 22:48 | XMS REPORT ---
Author Author Bandar MORAN Organization [facility] Address [address] [place] [address] Care Team Providers Care Category Development Manager Name Role Phone LUISAROSANNE Unavailable PROBLEMS Type Condition ICD9-CM Code NWT15-NG Code Onset Dates Condition S tatus SNOMED Code Problem History of fall Z91.81 Dec, Active 4 09018132 Problem Back pain, thoracic M54.6 10 Aug, 2013 Active 464957316 Problem Physical deconditioning R53.81 Sep, Act marion [id number] Problem Personal history of DVT (deep vein thrombosis) Z86.718 08 Mar, 2017 Active 855735319 Problem Thyroid mass E07.9 May, Active 2375 62002 Problem Cerebrovascular disease I67.9 10 Jun, 2011 Act marion 76043005 Problem Midline low back pain without sciatica M54.5 1 Nov, Active 103220770 Problem Late effect of stroke I69.30 Jan, Activ e 1873144511839 Problem Dizziness, nonspecific R42 May, Acti ve 745611172 Problem Cerebral infarction I63.9 08 May, 2007 Active 752928537 Problem Constipation, chronic K59.09 Nov, Activ e 184753040 Problem Numbness of right lower extremity R20.0 Feb Active 12913307 Problem Acute deep vein thrombosis (DVT) of right lower extrem ity I82.401 Mar, Active Problem Mastoiditis, acute, left H70.002 Apr, Ac tive 557871031 Problem Anxiety F41.9 June, Active 2827863 2 Problem 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 Jan, Active 0420 4004 Problem Spastic dysarthria R47.1 Jan, Active 942824245 Problem Overdose drug T50.901A June, Active 486 29922 Problem Generalized hyperreflexia R29.2 Jan, A ctive 24922148 Problem 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, 2011 Active Problem Awvtt-pl-pjzouzf renal failure N17.9 18 June, 2 012 Active 643048115 Problem History of myocardial infarction I25.2 08 Mar, 2017 Active 511215395 Problem STEMI (ST elevation myocardial infarction) I21.3 08 May, 2007 Active 539897764 Problem Weakness of both lower extremities R29.898 16 2014 Active 892515 Problem Numbness of left hand R20.0 06 Sep, 2014 Activ e 98493974 Problem Marijuana use F12.90 Apr, Active 191 059118 Problem Hyperlipidemia E78.5 May, Active 55 829103 Problem Mixed hyperlipidemia E78.2 Active 756967016 Problem HTN (hypertension) I10 June, Active 84392815 Problem manager intermediate 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 of 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 Z79.01 Active 998944356 Problem COPD (chronic obstructive pulmonary disease) J4 4.9 17 Mar, 2013 Active 77101888 Problem CAD (coronary artery disease) I25.10 Sep, 12 Active 68503782 Problem Chronic back pain M54.9 Active 13 9018695 Problem Hypertension I10 Active 6374313 3 Problem Atrial fibrillation, unspecified type I48.91 Active 03088986 Problem Difficulty walking R26.2 Active 7 88287734 ALLERGIES No Information ENCOUNTERS Encounter Location Date Diagnosis [address] [id number] [place] [address] June, [facility] [address] [facility] [id number] [address] [place] [address] June, [address] [id number] [place] [address] June, [address] [id number] [place] [address] June, [address] [id number] [place] [address] June, Atrial fibrillation, unspecified type I4 8.[address] [id number] [place] [address] May, [address] [id number] [place] [address] May, Chronic back pain M54.9 [facility] [place] [address] RD [id number] [place] [address] May, [facility] Lambert[address] [place] [address] RD [id number] [place] [address] May, Toe pain, right M79.674 [facility] [place] [address] [id number] [place] [address] May, [facility] Lambert[address] [place] [address] [id number] [place] [address] May, [address] [id number] [place] [address] May, Chronic back pain M54.9 [facility] CHRISTIANSON [address] [place] [address] [id number] [place] [address] Apr, [facility] Lambert[address] [place] [address] [id number] [place] [address] Apr, Atrial fibrillation, unspecified type I4 8.91 [facility] [place] [address] RD [id number] [place] [address] Apr, Atrial fibrillation, unspecified type I4 8.91 [facility] [place] [address] RD [id number] [place] [address] Mar, Atrial fibrillation, unspecified type I4 8.91 [facility] [place] [address] RD [id number] [place] [address] Mar, Atrial fibrillation, unspecified type I4 8.91 [facility] [place] [address] RD [id number] [place] [address] Mar, Chronic back pain M54.9 [facility] [place] [address] RD [id number] [place] [address] Mar, Atrial fibrillation, unspecified type I4 8.[address] 340[address] [id number] [place] [address] Mar, Chronic back pain M54.9 [facility] Drew [facility] [id number] [place] [address] 11 Mar, 2019 jail current use of 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 Z 79.[address] [id number] [place] [address] Mar, Atrial fibrillation, unspecified type I4 8.[address] [id number] [place] [address] Feb, [address] [id number] [place] [address] Feb, Atrial fibrillation, unspecified type I4 8.[address] [id number] [place] [address] Feb, [address] [id number] [place] [address] Feb, Atrial fibrillation, unspecified type I4 8.[address] [place] [address] RD [id number] [place] [address] Feb, Atrial fibrillation, unspecified type I4 8.[address] [id number] [place] [address] Feb, Atrial fibrillation, unspecified type I4 8.[address] [place] [address] RD [id number] [place] [address] Feb, Onychomycosis B35.[address] [place] [address] [address] [id number] [place] [address] Feb, Atrial fibrillation, unspecified type I4 8.[address] [id number] [place] [address] Jan, TOOTIE Lambert[address] [place] [address] RD [id number] [place] [address] Jan, [facility] [place] [address] RD [id number] [place] [address] Jan, Atrial fibrillation, unspecified type I4 8.91 [facility] [place] [address] [id number] [place] [address] Jan, Chronic back pain M54.9 [facility] [place] [address] [id number] [place] [address] Jan, Atrial fibrillation, unspecified type I4 8.91 [facility] [place] [address] [id number] [place] [address] Jan, Chronic back pain M54.9 [facility] [place] [address] [id number] [place] [address] Jan, Chronic back pain M54.9 [facility] [place] [address] [id number] [place] [address] Jan, Atrial fibrillation, unspecified type I4 8.91 [facility] [place] [address] [id number] [place] [address] Jan, [facility] [place] [address] [id number] [place] [address] Jan, [facility] [place] [address] [id number] [place] [address] Jan, Atrial fibrillation, unspecified type I4 8.91 [facility] [place] [address] [place], [place] [address] [id number] [place] [address] Jan, Excessive cerumen in ear canal, bilatera l H61.23 [facility] [place] [address] [id number] [place] [address] Jan, [facility] [place] [address] [id number] [place] [address] Dec, Mixed hyperlipidemia E78.2 and Atrial fi brillation, unspecified type I48.91 [facility] [place] [address] [id number] [place] [address] Dec, [facility] [place] [address] [id number] [place] [address] Dec, Atrial fibrillation, unspecified type I4 8.91 [facility] [id number] [place], [place] [address] [address] [id number] [place] [address] Dec, Chronic back pain M54.9 [facility] [address] [place], [place] [address] RD [id number] [place] [address] Dec, Atrial fibrillation, unspecified type I4 8.91 ; Hypertension I10 and Hyperlipidemia E78.5 [facility] [address] [place] [address] [address] [id number] [place] [address] Dec, [facility] [address] [place] [address] [id number] [place] [address] Dec, [facility] [id number] [place] [address] [address] [id number] [place] [address] Dec, Atrial fibrillation, unspecified type I4 8.91 [facility] [address] [place], [place] [address] RD [id number] [place] [address] Nov, [facility] [address] [place], [place] [address] RD [id number] [place] [address] Nov, [facility] [id number] [place] [address] [address] [id number] [place] [address] Nov, Atrial fibrillation, unspecified type I4 8.91 [facility] [address] [place], [place] [address] [address] [id number] [place] [address] Nov, Chronic back pain M54.9 [facility] [address] [place] [address] [address] [id number] [place] [address] Nov, Excessive cerumen in ear canal, bilatera l H61.23 [facility] [address] [place] [address] [id number] [place] [address] Nov, Atrial fibrillation, unspecified type I4 8.91 [facility] [address] [place], [place] [address] RD [id number] [place] [address] Nov, Atrial fibrillation, unspecified type I4 8.[address] [facility] [address] [id number] [place] [address] Nov, Atrial fibrillation, unspecified type I4 8.[address] [facility] [place] [address] [id number] [place] [address] Oct, Atrial fibrillation, unspecified type I4 8.91 [facility] Lambert[address] [place] [address] [address] [id number] [place] [address] Oct, Chronic back pain M54.9 and Atrial fibri llation, unspecified type I48.91 [facility] [address] [place] [address] [id number] [place] [address] Oct, Chronic back pain M54.9 [facility] Lambert[address] [place] [address] [id number] [place] [address] Oct, Atrial fibrillation, unspecified type I4 8.[address] [place] [address] [id number] [place] [address] 16 Oct, 2018 [facility] [address] [id number] [place] [address] Oct, Atrial fibrillation, unspecified type I4 8.[address] [id number] [place] [address] Oct, Atrial fibrillation, unspecified type I4 8.[address] [place] [address] [id number] [place] [address] Sep, [facility] [place] [address] [id number] [place] [address] Sep, [facility] Lambert[address] [place] [address] [address] [id number] [place] [address] Sep, Atrial fibrillation, unspecified type I4 8.91 [facility] [address] [place] [address] [address] [id number] [place] [address] Sep, Chronic back pain M54.9 [facility] [address] [id number] [place] [address] Sep, Atrial fibrillation, unspecified type I4 8.91 [address] [facility] [id number] [place] [address] Sep, Atrial fibrillation, unspecified type I4 8.91 [address] [facility] [id number] [place] [address] Sep, Atrial fibrillation, unspecified type I4 8.[address] [place] [address] [id number] [place] [address] Sep, Atrial fibrillation, unspecified type I4 8.[address] [place] [address] [address] [id number] [place] [address] Sep, Atrial fibrillation, unspecified type I4 8.[address] [place] [address] [id number] [place] [address] Aug, Atrial fibrillation, unspecified type I4 8.[address] [place] [address] [id number] [place] [address] Aug, Chronic back pain M54.[address] [place] [address] [address] [id number] [place] [address] Aug, Atrial fibrillation, unspecified type I4 8.[address] [place] [address] [id number] [place] [address] Aug, Atrial fibrillation, unspecified type I4 8.[address] [place] [address] [address] [id number] [place] [address] Aug, Atrial fibrillation, unspecified type I4 8.91 [address] [facility] [facility] [id number] [place] [address] Aug, Atrial fibrillation, unspecified type I4 8.91 [address] [facility] [id number] [place] [address] Aug, Atrial fibrillation, unspecified type I4 8.[address] [place] [address] RD [id number] [place] [address] Aug, [facility] Lambert[address] [place] [address] [address] [id number] [place] [address] Jul, [facility] [address] [id number] [place] [address] Jul, [facility] [address] [id number] [place] [address] Jul, Chronic back pain M54.9 [facility] [address] [place] [address] [address] [id number] [place] [address] Jul, Chronic back pain M54.9 [facility] [address] [place] [address] [address] [id number] [place] [address] Jul, Difficulty walking R26.2 [facility] [address] [id number] [place] [address] Jul, Difficulty walking R26.2 [facility] [address] [place] [address] [id number] [place] [address] Jul, Atrial fibrillation, unspecified type I4 8.91 [facility] [address] [place] [address] [address] [id number] [place] [address] Jul, Atrial fibrillation, unspecified type I4 8.[address] [id number] [place] [address] Jul, Atrial fibrillation, unspecified type I4 8.[address] [facility] [address] [place] [address] RD [id number] [place] [address] Jul, Atrial fibrillation, unspecified type I4 8.91 [facility] [address] [place] [address] [id number] [place] [address] Jul, [facility] [address] [id number] [place] [address] June, Chronic back pain M54.9 [facility] [address] [place] [address] [address] [id number] [place] [address] June, Atrial fibrillation, unspecified type I4 8.[address] [facility] [address] [id number] [place] [address] June, Atrial fibrillation, unspecified type I4 8.91 [facility] Lambert[address] [place] [address] [id number] [place] [address] June, Atrial fibrillation, unspecified type I4 8.91 [facility] [address] [place] [address] RD [id number] [place] [address] June, Atrial fibrillation, unspecified type I4 8.91 [facility] Lambert[address] [place] [address] [id number] [place] [address] June, Atrial fibrillation, unspecified type I4 8.91 [facility] Lambert[address] [place] [address] RD [id number] [place] [address] June, Chronic back pain M54.9 [facility] CHRISTIANSON [address] [place] [address] RD [id number] [place] [address] June, Atrial fibrillation, unspecified type I4 8.91 [facility] Lambert[address] [place] [address] RD [id number] [place] [address] May, [facility] Lambert[address] [place] [address] [id number] [place] [address] May, Difficulty walking R26.2 [facility] Lambert[address] [place] [address] RD [id number] [place] [address] May, Atrial fibrillation, unspecified type I4 8.91 [facility] [address] [facility] [id number] [address] [place] [address] May, [facility] SAM[facility] Lambert[address] [place] [address] RD [id number] [place] [address] May, Atrial fibrillation, unspecified type I4 8.91 [facility] Lambert[address] [place] [address] RD [id number] [place] [address] May, Atrial fibrillation, unspecified type I4 8.91 [facility] CHRISTIANSON [address] [place] [address] RD [id number] [place] [address] May, Difficulty walking R26.2 [facility] CHRISTIANSON [address] [place], [place] [address] RD [id number] [place] [address] May, Atrial fibrillation, unspecified type I4 8.91 [facility] Lambert[address] [place] [address] [id number] [place] [address] May, Chronic back pain M54.9 [facility] CHRISTIANSON [address] [place], [place] [address] RD [id number] [place] [address] May, Chronic back pain M54.9 [facility] CH[facility]ST[facility] [address] [place], [place] [address] RD [id number] [place] [address] Apr, Atrial fibrillation, unspecified type I4 8.91 [facility] Lambert[address] [place] [address] [id number] [place] [address] Apr, Atrial fibrillation, unspecified type I4 8.91 [facility] CH[facility]ST[facility] [address] [place] [address] RD [id number] [place] [address] Apr, Atrial fibrillation, unspecified type I4 8.91 [facility] CH[facility] [address] [place], [place] [address] RD [id number] [place] [address] Apr, Atrial fibrillation, unspecified type I4 8.91 [facility] CH[facility] [address] [place], [place] [address] RD [id number] [place] [address] Apr, Chronic back pain M54.9 [facility] CH[facility]STIANSON [address] [place] [address] RD [id number] [place] [address] Apr, Atrial fibrillation, unspecified type I4 8.91 [facility] CH[facility]STIANSON [address] [place] [address] RD [id number] [place] [address] Mar, Atrial fibrillation, unspecified type I4 8.91 [facility] [address] [facility] [id number] [address] [place] [address] Mar, [facility] CHRISTIANSON [address] [place] [address] RD [id number] [place] [address] Mar, Excessive cerumen in ear canal, bilatera l H61.23 ; Acute otitis media H66.90 and Chronic back pain M54.9 [facility] [place] [id number] [place] [address] RD [id number] [place] [address] Mar, Atrial fibrillation, unspecified type I4 8.91 [facility] [place] [id number] [place], [place] [address] [address] [id number] [place] [address] Mar, Atrial fibrillation, unspecified type I4 8.91 [facility] [address] [id number] [place] [address] Feb, Chronic back pain M54.9 [facility] [place] [address] [place] [address] RD [id number] [place] [address] Feb, Atrial fibrillation, unspecified type I4 8.91 [facility] [place] [address] [place] [address] RD [id number] [place] [address] Feb, Chronic back pain M54.9 [facility] [address] [id number] [place] [address] Feb, Atrial fibrillation, unspecified type I4 8.91 [facility] [address] [facility] [id number] [address] [place] [address] Feb, Chronic back pain M54.9 [facility] [address] [id number] [place] [address] Feb, Atrial fibrillation, unspecified type I4 8.[address] [id number] [place] [address] Feb, Atrial fibrillation, unspecified type I4 8.[address] [id number] [place] [address] Feb, Chronic back pain M54.9 and Hypertension I10 [facility] [address] [id number] [place] [address] Feb, [facility] [address] [facility] [id number] [address] [place] [address] Jan, [facility] [address] [facility] [id number] [address] [place] [address] Jan, [facility] [address] [facility] [id number] [address] [place] [address] Jan, [facility] [address] [facility] [id number] [address] [place] [address] Dec, [facility] [address] [facility] [id number] [address] [place] [address] Dec, [facility] [address] [facility] [id number] [address] [place] [address] Nov, IMMUNIZATIONS No Known Immunizations SOCIAL HISTORY Never Assessed REASON FOR VISIT controlled med refill PLAN OF CARE VITAL SIGNS MEDICATIONS Medication Instructions Dosage Frequency Start Date End Date Duration S tatus Hydrocodone-Acetaminophen 10-325 MG Orally every 8 hours 1 tablet a s needed 8h May, 28 days Active RESULTS No Results PROCEDURES [...]
--- OUTSIDE RECORDS SUMMARY | 2019-07-14 22:48 | XMS REPORT ---
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 Jan, Activ e 0848938179178 Problem Cerebral infarction I63.9 May, Active 861112920 Problem Marijuana use F12.90 Apr, Active 191 024743 Problem Numbness of left hand R20.0 Sep, Activ e 04700675 Problem Weakness of both lower extremities R29.898 2014 Active 705730 Problem Generalized hyperreflexia R29.2 Jan, A ctive 41173399 Problem Thyroid mass E07.9 May, Active 2370 08356 Problem 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, 2011 Active Problem Back pain, thoracic M54.6 10 Aug, 2013 Active 694085037 Problem 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 Jan, Active 5430 4004 Problem STEMI (ST elevation myocardial infarction) I21.3 May, Active 256096354 Problem Overdose drug T50.901A June, Active 556 46745 Problem Numbness of right lower extremity R20.0 11 Feb Active 55558725 Problem Acute deep vein thrombosis (DVT) of right lower extrem ity I82.401 Mar, Active Problem Physical deconditioning R53.81 Sep, Act marion [id number] Problem History of fall Z91.81 Dec, Active 4 82303311 Problem HTN (hypertension) I10 June, Active 85572143 Problem COPD (chronic obstructive pulmonary disease) J4 4.9 Mar, Active 42934666 Problem Anxiety F41.9 June, Active 6628547 2 Problem Spastic dysarthria R47.1 16 Jan, 2015 Active 116448097 Problem CAD (coronary artery disease) I25.10 Sep, 12 Active 98587211 Problem Mastoiditis, acute, left H70.002 Apr, Ac tive 290895931 Problem Personal history of DVT (deep vein thrombosis) Z86.718 08 Mar, 2017 Active 009343484 Problem Midline low back pain without sciatica M54.5 1 Nov, Active 341433507 Problem Cerebrovascular disease I67.9 10 Jun, 2011 Act marion 00891492 Problem Difficulty walking R26.2 Active 7 12286478 Problem Constipation, chronic K59.09 Nov, Activ e 162199994 Problem Mixed hyperlipidemia E78.2 Active 559874827 Problem History of myocardial infarction I25.2 08 Mar, 2017 Active 347907082 Problem Dizziness, nonspecific R42 May, Acti ve 149280600 Problem Hyperlipidemia E78.5 08 May, 2007 Active 55 987248 Problem Chronic back pain M54.9 Active 13 3122158 Problem Hypertension I10 Active 7718060 3 Problem Atrial fibrillation, unspecified type I48.91 Active 42629732 ALLERGIES No Information ENCOUNTERS Encounter Location Date Diagnosis [facility] [address] [facility] [id number] [place] [address] May, [address] [id number] [place] [address] 15 Feb, 2019 Atrial fibrillation, unspecified type I4 8.[address] [id number] [place] [address] Feb, Atrial fibrillation, unspecified type I4 8.[address] [id number] [place] [address] Feb, Onychomycosis B35.[address] [id number] [place] [address] Feb, Atrial fibrillation, unspecified type I4 8.[address] [id number] [place] [address] Jan, [address] [id number] [place] [address] Jan, [facility] [place] [address] [facility] [id number] [address] Jan, Atrial fibrillation, unspecified type I4 8.[address] [facility] [place] [address] [id number] [place] [address] Jan, Chronic back pain M54.9 [facility] [place] [address] [id number] [address] Jan, Atrial fibrillation, unspecified type I4 8.91 [facility] [place] [address] [place], [place] [address]ER [id number] [address] Jan, Chronic back pain M54.9 [facility] [place] [address] [id number] [address] Jan, Chronic back pain M54.9 [facility] [place] [address] [id number] [address] Jan, Atrial fibrillation, unspecified type I4 8.91 [facility] [place] [address] [place], [place] [address]ER [id number] [address] Jan, [facility] [place] [address] [id number] [address] Jan, [facility] [place] [address] [id number] [address] Jan, Atrial fibrillation, unspecified type I4 8.91 [facility] [place] [address] [place] [id number] [address] Jan, Excessive cerumen in ear canal, bilatera l H61.23 [facility] [place] [address] [place], [place] [address]ER [id number] [place] [address] Jan, [facility] [place] [address] [id number] [place] [address] Dec, Mixed hyperlipidemia E78.2 and Atrial fi brillation, unspecified type I48.91 [facility] [place] [id number] [id number] [address] Dec, [facility] [place] [address] [id number] [place] [address] Dec, Atrial fibrillation, unspecified type I4 8.91 [facility] [place] [address] [id number] [place] [address] Dec, Chronic back pain M54.9 [facility] [place] [address] [facility] [id number] [address] Dec, Atrial fibrillation, unspecified type I4 8.91 ; Hypertension I10 and Hyperlipidemia E78.5 [facility] [place] [address] [place], [place] [address]ER [place] [id number] [place] [address] Dec, [facility] [place] [address] [place], [place] [address]ER [facility] [id number] [address] Dec, [facility] [place] [address] [place], [place] [address]ER [facility] [id number] [address] Dec, Atrial fibrillation, unspecified type I4 8.91 [facility] [place] [address] [place], [place] [address]ER [id number] [place] [address] Nov, [facility] [place] [address] [place], [place] [address]ER [id number] [place] [address] Nov, [facility] [place] [address] [place], [place] [address]ER [facility] [id number] [place] [address] Nov, Atrial fibrillation, unspecified type I4 8.91 [facility] [place] [address] [place], [place] [address]ER [facility] [id number] [place] [address] Nov, Chronic back pain M54.9 [facility] [place] [address] [place], [place] [address]ER [id number] [place] [address] Nov, Excessive cerumen in ear canal, bilatera l H61.23 [facility] [place] [address] [place], [place] [address]ER [facility] [id number] [place] [address] Nov, Atrial fibrillation, unspecified type I4 8.91 [facility] [place] [address] [id number] [place] [address] Nov, Atrial fibrillation, unspecified type I4 8.91 [facility] [place] [address] [facility] [id number] [address] Nov, Atrial fibrillation, unspecified type I4 8.91 [facility] [place] [address] [id number] [address] Oct, Atrial fibrillation, unspecified type I4 8.91 [facility] [place] [address] [address] [id number] [place] [address] Oct, Chronic back pain M54.9 and Atrial fibri llation, unspecified type I48.91 [facility] [place] [address] [id number] [address] Oct, Chronic back pain M54.9 [facility] [place] [address] [id number] [address] Oct, Atrial fibrillation, unspecified type I4 8.91 [facility] [place] [address] [id number] [address] Oct, [facility] [place] [address] [id number] [address] Oct, Atrial fibrillation, unspecified type I4 8.91 [facility] [place] [address] [id number] [address] Oct, Atrial fibrillation, unspecified type I4 8.91 [facility] [place] [address] [id number] [address] Sep, [facility] [place] [address] [id number] [address] Sep, [facility] [place] [address] [id number] [address] Sep, Atrial fibrillation, unspecified type I4 8.91 [facility] [place] [address] [place], [place] [address]ER [facility] [id number] [address] Sep, Chronic back pain M54.9 [facility] [place] [address] [id number] [address] Sep, Atrial fibrillation, unspecified type I4 8.91 [facility] [place] [address] [id number] [address] Sep, Atrial fibrillation, unspecified type I4 8.91 [facility] [place] [address] [id number] [address] Sep, Atrial fibrillation, unspecified type I4 8.91 [facility] [place] [address] [place], [place] [address]ER [id number] [place] [address] Sep, Atrial fibrillation, unspecified type I4 8.91 [facility] [place] [address] [id number] [address] Sep, Atrial fibrillation, unspecified type I4 8.91 [facility] [place] [address] [id number] [address] Aug, Atrial fibrillation, unspecified type I4 8.91 [facility] [place] [address] [id number] [address] Aug, Chronic back pain M54.9 [facility] [address] [id number] [address] Aug, Atrial fibrillation, unspecified type I4 8.91 [facility] [place] [address] [id number] [address] Aug, Atrial fibrillation, unspecified type I4 8.91 [facility] [place] [address] [id number] [address] Aug, Atrial fibrillation, unspecified type I4 8.91 [facility] [place] [address] [id number] [address] Aug, Atrial fibrillation, unspecified type I4 8.91 [facility] [place] [address] [place], [place] [address]ER [id number] [place] [address] Aug, Atrial fibrillation, unspecified type I4 8.91 [facility] [place] [address] [id number] [address] Aug, [facility] [place] [address] [place], [place] [address]ER [facility] [id number] [place] [address] Jul, [facility] [place] [address] [id number] [address] Jul, [facility] [place] [address] [place] [address] [id number] [place] [address] Jul, Chronic back pain M54.9 [facility] [place] [address] [place], [place] [address]ER [facility] [id number] [place] [address] Jul, Chronic back pain M54.9 [facility] [place] [address] [address] [id number] [place] [address] Jul, Difficulty walking R26.2 [facility] [place] [address] [place], [place] [address]ER [id number] [address] Jul, Difficulty walking R26.2 [facility] [place] [address] [id number] [address] Jul, Atrial fibrillation, unspecified type I4 8.91 [facility] [place] [address] [id number] [address] Jul, Atrial fibrillation, unspecified type I4 8.91 [facility] [place] [address] [id number] [address] Jul, Atrial fibrillation, unspecified type I4 8.91 [facility] [place] [address] [id number] [address] Jul, Atrial fibrillation, unspecified type I4 8.91 [facility] [place] [address] [id number] [address] Jul, [facility] [place] [address] [id number] [address] June, Chronic back pain M54.9 [facility] [place] [address] [id number] [address] June, Atrial fibrillation, unspecified type I4 8.91 [facility] [place] [address] [id number] [address] June, Atrial fibrillation, unspecified type I4 8.91 [facility] [place] [address] [place], [place] [address]ER [id number] [place] [address] June, Atrial fibrillation, unspecified type I4 8.91 [facility] [place] [address] [id number] [address] June, Atrial fibrillation, unspecified type I4 8.91 [facility] [place] [address] [id number] [place] [address] June, Atrial fibrillation, unspecified type I4 8.91 [facility] [place] [address] [address] [facility] [id number] [address] June, Chronic back pain M54.9 [facility] [place] [address] [id number] [address] June, Atrial fibrillation, unspecified type I4 8.91 [facility] [place] [address] [id number] [address] May, [facility] [place] [address] [id number] [address] May, Difficulty walking R26.2 [facility] [place] [address] [id number] [address] May, Atrial fibrillation, unspecified type I4 8.91 [facility] [address] [id number] [place] [address] May, [facility] [place] [address] [id number] [address] May, Atrial fibrillation, unspecified type I4 8.91 [facility] [place] [address] [id number] [address] May, Atrial fibrillation, unspecified type I4 8.91 [facility] [place] [address] [id number] [address] May, Difficulty walking R26.2 [facility] [place] [address] [id number] [address] May, Atrial fibrillation, unspecified type I4 8.91 [facility] [place] [address] [id number] [address] May, Chronic back pain M54.9 [facility] [place] [address] [id number] [address] May, Chronic back pain M54.9 [facility] [place] [address] [id number] [address] Apr, Atrial fibrillation, unspecified type I4 8.91 [facility] [place] [address] [id number] [address] Apr, Atrial fibrillation, unspecified type I4 8.91 [facility] [place] [address] [id number] [address] Apr, Atrial fibrillation, unspecified type I4 8.91 [facility] [place] [address] [id number] [address] Apr, Atrial fibrillation, unspecified type I4 8.91 [facility] [place] [address] [id number] [address] Apr, Chronic back pain M54.9 [facility] [place] [address] [id number] [address] Apr, Atrial fibrillation, unspecified type I4 8.91 [facility] [place] [address] [id number] [address] Mar, Atrial fibrillation, unspecified type I4 8.91 [facility] [address] [id number] [place] [address] Mar, [facility] [place] [address] [id number] [address] Mar, Excessive cerumen in ear canal, bilatera l H61.23 ; Acute otitis media H66.90 and Chronic back pain M54.9 [facility] [place] [address] [id number] [address] Mar, Atrial fibrillation, unspecified type I4 8.91 [facility] [place] [address] [id number] [address] Mar, Atrial fibrillation, unspecified type I4 8.91 [facility] [place] [address] [id number] [address] Feb, Chronic back pain M54.9 [facility] [place] [address] [id number] [address] Feb, Atrial fibrillation, unspecified type I4 8.91 [facility] [address] [id number] [place] [address] Feb, Chronic back pain M54.9 [facility] [address] [id number] [place] [address] Feb, Atrial fibrillation, unspecified type I4 8.91 [place] [address] [address] Feb, Chronic back pain M54.9 [facility] [address] [id number] [place] [address] Feb, Atrial fibrillation, unspecified type I4 8.91 [place] [id number] [facility]07757R [place] [address] Feb, Atrial fibrillation, unspecified type I4 8.[address] [place] [address] Feb, Chronic back pain M54.9 and Hypertension I10 [facility] [address] [id number] [place] [address] Feb, [place] [address] [address] Jan, [place] [address] [address] Jan, [place] [address] [address] Jan, [place] [address] [address] Dec, [place] [address] [address] Dec, [place] [address] [address] Nov, IMMUNIZATIONS No Known Immunizations SOCIAL HISTORY Never Assessed REASON FOR VISIT Lab, Pt here for INR. Stacey Ariza RN PLAN OF CARE VITAL SIGNS MEDICATIONS Unknown Medications RESULTS Name Result Date Reference Range INR (IN HOUSE) 2018-05-01 INR 1.7 1.10 - 3.30 PREVIOUS INR 2.1 CURRENT COUMADIN DOSE 10 mg on Sun and Sunday, 5 mg on all oth er day NEW COUMADIN DOSE 10 mg on Sun and Sun, 5 mg on all other days Lot # [id number] Exp date 05/06/19 PROCEDURES Procedure Date Ordered Result Body Site PROTHROMBIN TIME May 01, 2018 INSTRUCTIONS MEDICATIONS ADMINISTERED No Known Medications MEDICAL [...]
[2019-07-14] MEDS ORDERED: CALCIUM GLUC. 10% 4.65 MEQ/10 ML VIAL ONE (23:15)
[2019-07-14] MEDS ORDERED: NS (IVPB) 50 ML ONE (23:16)
[2019-07-15 00:21] VITALS: BP 138/87
[2019-07-15] MEDS ORDERED: CALCIUM GLUC. 10% 4.65 MEQ/10 ML VIAL ONE (00:30)
[2019-07-15] MEDS ORDERED: NS (IVPB) 50 ML ONE (00:31)
--- NOTE | 2019-07-15 01:35 | NUR ---
Received orders from Dr. Batres to give pt Calcium Gluconate 2G; repeat BMP and Magnesium in AM; and to put electrolyte replacement order set. Order followed. 1st bag of Calcium Gluconate verified and mixed with DAMARIS Garcia. 2nd bag of Calcium Gluconate verified and mixed with DAMARIS Badillo.
[2019-07-15 04:00] VITALS: BP 138/91
[2019-07-15] MEDS ORDERED: MAGNESIUM 1 GM/100 ML IVPB 100 ML IV SCH (06:00)
[2019-07-15] MEDS ORDERED: POTASSIUM CL 10MEQ/50ML IVPB 50 ML IV SCH (06:00)
[2019-07-15] MEDS ORDERED: KCL 20 MEQ TAB (K-DUR) PO SCH (06:00)
[2019-07-15 06:12] LABS: CALCIUM 9.3 MG/DL (8.5-10.1)
[2019-07-15 06:16] LABS: PHOSPHORUS 3.5 MG/DL (2.3-4.7)
[2019-07-15 06:17] LABS: CREATININE SERUM 1.55 MG/DL (0.60-1.30)
[2019-07-15 06:19] LABS: MAGNESIUM 2.1 MG/DL (1.6-2.4)
[2019-07-15 08:00] VITALS: BP 163/103
[2019-07-15] MEDS ORDERED: SENNA W/DOCUSATE (SENOKOT S) TABLET PO SCH (09:00)
[2019-07-15] MEDS ORDERED: NS IV 1000 ML 1,000 ML IV ONE (11:00)
[2019-07-15] MEDS ORDERED: HYDR-3820 PO (11:08)
[2019-07-15] MEDS ORDERED: LISI-552 PO (11:08)
[2019-07-15] MEDS ORDERED: WARF10TA44 PO (11:08)
[2019-07-15] MEDS ORDERED: WARF-48 PO (11:08)
--- NOTE | 2019-07-15 11:08 | NUR ---
SPOKE WITH THE PT AND WENT THRU THE EXT MED HISTORY TO COMPLETE THE MED REC PT ALTERNATES WARFARIN 5MG AND 10MG- TAKES 10MG ON MON,WED,FRI TAKES 5MG ON SUN,SUN,,SAT PT ONLY TAKES LISINOPRIL 20MG PRN DENIES USING ANY OTC MEDS
[2019-07-15 12:00] VITALS: BP 125/85
[2019-07-15 12:59] LABS: CALCIUM 8.3 MG/DL (8.5-10.1); CREATININE SERUM 1.4 MG/DL (0.60-1.30); POTASSIUM 3.9 MMOL/L (3.6-5.0)
[2019-07-15 15:32] LABS: BILIRUBIN,URINE NEGATIVE (NEGATIVE); CLARITY,URINE CLEAR; COLOR,URINE YELLOW; GLUCOSE, URINE (UA) NEGATIVE (NEGATIVE); KETONES,URINE NEGATIVE (NEGATIVE); LEUKOCYTE ESTERASE ,URINE NEGATIVE (NEGATIVE); NITRITE,URINE POSITIVE (NEGATIVE); PH,URINE 5.5 (5-9); PROTEIN,URINE NEGATIVE (NEGATIVE)
[2019-07-15 15:40] LABS: BACTERIA,URINE TRACE /HPF; SQUAMOUS EPITHELIAL CELL,UR RARE /HPF; WBC,URINE 0-2 /HPF
[2019-07-15 16:00] VITALS: BP 135/83
--- NOTE | 2019-07-15 17:08 | Short Stay Summary ---
History of Present Illness History of Present Illness Reason for visit/HPI 48 yo M with a complicated medical history that presented with sudden onset of sweating and dizziness while he was out on his porch waiting for a ride in the 90 degree weather. States that he has not had this before. Denies any chest pain or shortness of breath. States that he just started feeling sick. + nausea but denies any vomiting. 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 He is on warfarin as a ppx. States that he is feeling much better and at his baseline. Date of Admission Jul 14, 2019 at 18:00 Date of Discharge 07/15/2019 Time Seen by Provider: 10:15 Attending Physician Aquiles Spann MD Admitting Physician Tony Kaminski Aprn Consult Allergies and Home Medications Allergies Coded Allergies: metoclopramide (Verified Allergy, Unknown, 12/14/06) prochlorperazine (Verified Allergy, Unknown, 12/14/06) Home Medications Hydrocodone/Acetaminophen 1 Each Tablet, 1 EA PO Q8H PRN for PAIN-MODERATE (5- 7), (Reported) Lisinopril 20 Mg Tablet, 20 MG PO DAILY PRN for BLOOD PRESSURE, (Reported) Warfarin Sodium 10 Mg Tablet, 10 MG PO MON,SUN,FR, (Reported) TAKES 10MG ON MON,WED,FRI TAKES 5MG ON SUN,TUE,THUR,SAT Warfarin Sodium 5 Mg Tablet, 5 MG PO SUN,TUE,ALEXIS,SAT, (Reported) TAKES 10MG ON MON,WED,FRI TAKES 5MG ON SUN,TUE,THUR,SAT Patient Home Medication List Home Medication List Reviewed: Yes Past Vqgpmhb-Bihquw-Kdcvct Hx Patient Social History Alcohol Use: Past History Smoking Status: Former Smoker 2nd Hand Smoke Exposure: No Recent Foreign Travel: No Contact w/other who traveled: No Recent Hopitalizations: No Recent Infectious Disease Expo: No Seasonal Allergies Seasonal Allergies: No Respiratory Yes (copd) Cardiovascular Yes Heart Attack Neurological Yes Stroke Reproductive System Hx Reproductive Disorders: No Sexually Transmitted Disease: No Gastrointestinal No Musculoskeletal Yes Endocrine History of Endocrine Disorders: No Cancer Yes (nasopharyngeal at age 18) Psychosocial History of Psychiatric Problem: Yes Blood Transfusions History of Blood Disorders: No Review of Systems Constitutional: dizziness, malaise EENTM: no symptoms reported; No mouth pain, No nose congestion, No nose pain Respiratory: no symptoms reported; No cough, No dyspnea on exertion, No short of breath Cardiovascular: no symptoms reported; No chest pain, No edema, No palpitations Gastrointestinal: No abdominal pain, No loss of appetite; nausea; No vomiting Genitourinary: no symptoms reported; No dysuria, No frequency, No hematuria Musculoskeletal: no symptoms reported; No back pain, No joint pain, No muscle pain Skin: no symptoms reported; No lesions, No rash Psychiatric/Neurological: Weakness Physical Exam Vital Signs Vital Signs - First Documented 07/14/19 16:37 Temp 36.5 Pulse 75 Resp 18 B/P (MAP) 128/70 (89) Pulse Ox 94 O2 Delivery Room Air Capillary Refill : Less Than 3 Seconds Height, Weight, BMI Height: '" Weight: lbs. oz. 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 Skin: Normal Color, Warm/Dry Lymphatic: No Adenopathy Clinical Quality Measures DVT/VTE Risk/Contraindication: Risk Factor Score Per Nursin RFS Level Per Nursing on Admit: 2=Moderate Short Stay Diagnosis Discharge Diagnosis-Short Stay Admission Diagnosis: Dizziness Electrolyte Imbalance Hypokalemia Hypomagnesiema Hypocalcemia Acute renal failure Final Discharge Diagnosis: See Above Conclusion Labs Laboratory Tests 07/15/19 05:13: Sodium Level 139, Potassium Level 4.0, Chloride Level 110#H, Carbon Dioxide Level 18L, Anion Gap 11, Blood Urea Nitrogen 9, Creatinine 1.55H, Estimat Glom erular Filtration Rate 48, BUN/Creatinine Ratio 6, Glucose Level 94, Calcium Level 9.3, Phosphorus Level 3.5, Magnesium Level 2.1, Total Creatine Kinase 223H 07/15/19 12:35: Sodium Level 137, Potassium Level 3.9, Chloride Level 110H, Carbon Dioxide Level 18L, Anion Gap 9, Blood Urea Nitrogen 10, Creatinine 1.40H, Estimat Glomerular Filtration Rate 54, BUN/Creatinine Ratio 7, Glucose Level 90, Calcium Level 8.3L 07/15/19 14:15: Urine Color YELLOW, Urine Clarity CLEAR, Urine pH 5.5, Urine Specific [place] >=1.030, Urine Protein NEGATIVE, Urine Glucose (UA) NEGATIVE, Urine Ketones NEGATIVE, Urine Nitrite POSITIVEH, Urine Bilirubin NEGATIVE, Urine Urobilinogen 0.2, Urine Leukocyte Esterase NEGATIVE, Urine RBC (Auto) NEGATIVE, Urine RBC NONE, Urine WBC 0-2, Urine Squamous Epithelial Cells RARE, Urine Crystals NONE, Urine Bacteria TRACE, Urine Casts NONE, Urine Mucus SMALLH, Urine Culture Indicated YES Conclusion/Plan 48 yo M that was admitted for multiple electrolyte imbalances and dizziness, now resolved Dizziness - Resolved with hydration Acute Renal Failure - Myoglobin neg, trending down prior to discharge Electrolyte imbalances replaced and improved this AM Patient desires discharge home AQUILES SPANN MD Jul 15, 2019 17:08
--- NOTE | 2019-07-15 17:10 | Discharge Summary ---
Discharge [email or web address] Reconcile Patient Problems Problems Reviewed?: Yes Discharge Medications New, Converted or Re-Newed RX: Other (No new meds) Continued Medications: Hydrocodone/Acetaminophen (Hydrocodone-Acetamin 10-325 mg) 1 Each Tablet 1 EA PO Q8H PRN for PAIN-MODERATE (5-7), TAB Lisinopril (Lisinopril) 20 Mg Tablet 20 MG PO DAILY PRN for BLOOD PRESSURE, TAB Warfarin Sodium (Warfarin Sodium) 10 Mg Tablet 10 MG PO SUN,SUN,FR, TAB TAKES 10MG ON SUN,SUN,FRI TAKES 5MG ON SUN,SUN,THUR,SAT Warfarin Sodium (Warfarin Sodium) 5 Mg Tablet 5 MG PO SUN,SUN,SUN,SAT, TAB TAKES 10MG ON SUN,SUN,FRI TAKES 5MG ON SUN,SUN,,SAT Patient Instructions Goal/Follow Up Appt: F.u in 1 week with PCP Activity & Diet Discharge Diet: No Restrictions Activity as Tolerated: Yes AQUILES GILLILAND MD Jul 15, 2019 17:10
== END 2019-07-15 17:08 | disposition home or self-care (01) ==
LOC: EDUNIT# 16:32 → ER FS 16:33 → UNDOADMIN 18:00 → 4TH 18:00 → UNDODISIN 07-15 18:00
PROVIDERS: ADMIT Internal Medicine; ATTEND Family Medicine
DX: R42 Dizziness and giddiness (principal); N17.9 Acute kidney failure, unspecified; E87.6 Hypokalemia; E83.42 Hypomagnesemia; E83.51 Hypocalcemia; J44.9 Chronic obstructive pulmonary disease, unspecified; I25.2 Old myocardial infarction; Z86.73 Personal history of transient ischemic attack (TIA), and cerebral infarction without residual deficits; Z85.819 Personal history of malignant neoplasm of unspecified site of lip, oral cavity, and pharynx
CPT/HCPCS: 36415; 80048; 81000; 82550; 83735; 84100; 85025; 87088; 93005; G0378